=== PATIENT | male | born 1965 ===

== ENCOUNTER 2019-11-30 09:25 | Inpatient (IN) | payer OTHER ==
[~2019-11-30] VITALS: Ht 188 cm; Wt 124.9 kg
[2019-11-30] MEDS ORDERED: diphenhydrAMINE 25 MG TAB (BENADRYL) PO PRN (10:15)
[2019-11-30] MEDS ORDERED: CALCIUM CARBONATE 500 MG (TUMS) TAB.CHEW PO PRN (10:15)
[2019-11-30] MEDS ORDERED: guaiFENesin/CODEINE (ROBITUSSIN AC) 10ML UDC PO PRN (10:15)
[2019-11-30] MEDS ORDERED: ONDANSETRON 4 MG (ZOFRAN) ORAL DISSOLVE TAB PO PRN (10:15)
[2019-11-30] MEDS ORDERED: LOPERAMIDE 2 MG (IMODIUM) TABLET PO PRN (10:15)
[2019-11-30] MEDS ORDERED: ALPRAZolam 0.25 MG (XANAX) TAB PO PRN (10:15)
[2019-11-30] MEDS ORDERED: MELATONIN 3 MG TABLET PO PRN (10:15)
[2019-11-30] MEDS ORDERED: BISACODYL 10 MG SUPP (DULCOLAX) PR PRN (10:15)
[2019-11-30] MEDS ORDERED: FLEET ENEMA ADULT 1 EA BTL PR PRN (10:15)
[2019-11-30] MEDS ORDERED: ACETAMINOPHEN 500 MG TAB (TYLENOL) PO PRN ×2 (10:15→15:45)
[2019-11-30] MEDS ORDERED: LACTULOSE SYRUP 10GM/15ML (ENULOSE) 30ML UDC PO PRN (10:15)
[2019-11-30] MEDS ORDERED: DOCUSATE SODIUM 100 MG (COLACE) CAP PO PRN (10:15)
[2019-11-30] MEDS ORDERED: ASPI-999 PO (12:10)
[2019-11-30] MEDS ORDERED: DILT360C36 PO (12:12)
[2019-11-30] MEDS ORDERED: METO50TA7 PO (12:12)
[2019-11-30] MEDS ORDERED: ACET-2267 PO (12:12)
--- NOTE | 2019-11-30 12:14 | NUR ---
THE MED REC HAS BEEN ENTERED USING THE DISCHARGE ORDERS FROM [facility]- AFTER MEDICATION ARE CONTINUED I WILL SPEAK WITH THE PT AND MAKE CHANGES TO THE NOTES/MED REC NEEDED Addendum: 12/03/19 at 1531 by ADI DE LA CRUZ CPhT I SPOKE WITH THE PT AND WENT THRU THE EXT MED HISTORY TO COMPLETE THE MED REC MEDICATIONS THAT HAVE BEEN REMOVED DUE TO PT NOT TAKING PRIOR TO [facility]: ASPIRIN 81MG DILTIAZEM CD 360MG METOPROLOL SUCC 50MG- TAKES 1 & TABS DAILY MEDS THAT WERE ADDED TO THE MED REC THAT PT WAS TAKING BUT HAVE BEEN DISCONTINUED: CYCLOBENZAPRINE 10MG Addendum: 12/03/19 at 1531 by ADI DE LA CRUZ CPhT PT SAYS HE DOES TAKE TYLENOL AT HOME
--- NOTE | 2019-11-30 13:30 | NUR ---
Pt admitted to room 232-1, with an admitting diagnosis of M/S flare up, on 11/30/19 from [facility] via w/c, accompanied by staff. SOLANGE HARRELL introduced to surroundings, call light, bed controls, phone, TV, temperature control, lights, meal times, smoking policy, visitor policy, side rail policy, bathrooms and showers. Patient Rights given to patient in the handbook. SOLANGE HARRELL verbalizes understanding that [facility] is not responsible for the loss or damage to any personal effects or valuables that are kept in the patients posession during their hospitalization. The following Patient Care Plans were discussed with the pt: Impaired Mobility, Self Care Deficit, Potential for falls/injury, Discharge Planning. SOLANGE HARRELL verbalizes understanding of Interdisciplinary Patient Education. Patient and/or family were informed about the Rapid Response Team and its purpose. Patient received Patient Rights Booklet, which includes Privacy Act Statement and Data Collection Information Summary.
[2019-11-30 13:45] VITALS: BP 142/80
[2019-11-30] MEDS ORDERED: ACETAMINOPHEN 325 MG TABLET PO PRN (15:30)
--- NOTE | 2019-11-30 15:40 | Occupational Therapy Eval ---
OT Evaluation-General/PLF Medical Diagnosis Admission Date Nov 30, 2019 at 13:21 Medical Diagnosis: MS, debility Onset Date: Nov 30, 2019 Therapy Diagnosis Therapy Diagnosis: Decreased ADL status Precautions Precautions/Isolations: Standard Precautions Weight Bear Status Weight Bearing Restriction: Weight Bearing/Tolerated Referral Physician: Drake Referral Reason: Activity Tolerance, Self Care, Evaluation/Treatment, Strengthening/ROM Medical History Pertinent Medical History: HTN Additional Medical History chronic edema (BLE), L shoulder surgery (2002), MS, HTN, prostate Ca Current History Pt found on floor after 3 days by son. Pt fell/ unable to get up or call for help. Pt found to have a fib, UTI upon admission. Pt admits to ARU with c/o MS flare up and L knee pain. Reviewed History: Yes Social History Home: Multilevel Current Living Status: Other Family (sister) Entry Into Home: Level Entry Steps Into Home: 0 ADL-Prior Level of Function SCALE: Activities may be completed with or without assistive devices. 6-Mayozyxyzm-gwwijss completes the activity by him/herself with no assistance from a helper. 5-Set-up or Clean-up Assistance-helper sets up or cleans up; patient completes activity. [place] assists only prior to or following the activity. 4-Supervision or Touching Assistance-helper provides verbal cues and/or touching/steadying and/or contact guard assistance as patient completes activity. Assistance may be provided throughout the activity or intermittently. 3-Partial/Moderate Assistance-helper does LESS THAN HALF the effort. [place] lifts, holds or supports trunk or limbs, but provides less than half the effort. 2-Substantial/Maximal Assistance-helper does MORE THAN HALF the effort. [place] lifts or holds trunk or limbs and provides more than half the effort. 9-Akgmbbiht-clhdac does ALL the effort. Patient does none of the effort to complete the activity. Or, the assistance of 2 or more helpers is required for the patient to complete the activity. If activity was not attempted, code reason: 7-Patient Refused. 9-Not Applicable-not attempted and the patient did not perform the activity before the current illness, exacerbation or injury. 10-Not Attempted due to Environmental Limitations-(lack of equipment, weather restraints, etc.). 88-Not Attempted due to Medical Conditions or Safety Concerns. ADL PLOF Comments Pt states he is IND without use of AE for ADL tasks, use of 4WW for fx amb/ showering tasks. Self Care: Independent Functional Cognition: Independent DME/Equipment: Grab Bars, Shower DME/Equipment Comments walker, gb, walk in shower Occupation: disabled Drive Self: Yes OT Current Status Subjective Pt seen in recliner. Alert/ oriented x3. Pt agrees to OT eval/ treat. Pt states 7/10 pain in L knee in sit and in stance. OT individual eval: [id number] (15) PT eval: [id number] OT/ PT co-treat: [id number] (75) OT/ PT co treat rendered at this time: OT worked on ADL tasks, UE movement, fine motor/ dirt bike mechanic strength and PT addresses LE movement, fx transfers, and w/c mob. Mental Status/Objective Patient Orientation: Person, Place, Situation Current Glasses/Contacts: Yes Hearing Aids: No Dentures/Partials: No Hand Dominance: Right Upper Extremity ROM WFL BUE Upper Extremity Coordination WFL BUE Upper Extremity Sensation WFL BUE Upper Extremity Strength WFL BUE (4+/5) Edema: slight pitting [place] ADL-Treatment Eating (QC): 6 (IND; pt able to drink water ) Oral Hygiene (QC): 6 (IND per clinical reasoning) Shower/Bathe Self (QC): 7 (denies at this time. ) Upper Body Dressing (QC): 5 (s/u) Lower Body Dressing (QC): 1 (TD- max A for threading and sit to stand for stance for pulling over hips. ) On/Off Footwear (QC): 1 (TD per clinical judgment. ) Toileting Hygiene (QC): 1 (TD, use of sit to stand to [facility] Other Treatments Pt educated on OT role. 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 Pt lives in the basement of sister's home, though no stairs to get in/ out. Pt unclear on layout, but has ~3 stairs to climb to main/ kitchen level. Pt has walk in shower, gb to be installed (renovating his area). Pt states he is unsure if sister works during the day as she is "private person" though he knows she is gone during the day and does not assist with ADLs. Sister assists with grocery shopping/ IADLs. Pt states he ambulated with PT at [facility] and may have overworked his L knee- now states 7/10 pain (continuous pain). Pt states R UE/ LE affected by MS and pt "flops" R leg around with UEs. Pt's R/LUE MMT similar bilaterally. Pt tracks in all planes- states utilizes glasses though these are at home. Based on clinical judgment, pt unable to doff/ don socks. Pt attempts to thread pants to LEs, requires assist with 1 of 2 legs. Pt attempt to sit to stand with Ax2- unable to stand. Sit to stand lift utilized, pants donned with TD due to sit to stand lift needed for pant hike. Pt brought to w/c level, pt able to propel with cues for environment to problem solve, pt runs into items with hands. Pt stands at parallel bars with Ax2, completes stance for ~10 sec. Sits with limited control, clonus noted in R LE. Completion of UE dirt bike mechanic/ reaching exercise crossing midline. Pt demonstrates decreased hand eye coordination and depth perception during clothes pin task. Pt returns to room, sit to stand utilized for commode use, TD for cleansing/ toileting. Pt brought back to bed, all needs met, call light in reach. Education OT Patient Education: Correct positioning, Exercise program, Home exercise program, Modified ADL techniques, Progress toward Goal/Update tx plan, Purpose of tx/functional activities, Safety issues, Transfer techniques, W/C management Teaching Recipient: Patient Teaching Methods: Demonstration, Discussion Response to Teaching: Verbalize Understanding, Return Demonstration, Reinforcement Needed OT Short Term Goals Short Term Goals Toileting hygiene: 2 Lower body dressin OT General Operations Manager Goals General Operations Manager Goals Time Frame: Dec 14, 2019 Eating (QC): 6 Oral Hygiene (QC): 6 Toileting Hygiene (QC): 6 Shower/Bathe Self (QC): 6 Upper Body Dressing (QC): 6 Lower Body Dressing (QC): 6 On/Off Footwear (QC): 6 Additional Goals: 1-Demonstrate ADL Tasks, 2-Verbalize Understanding, 3- ImproveStrength/[place] 1=Demonstrate adherence to instructed precautions during ADL tasks. 2=Patient will verbalize/demonstrate understanding of assistive devices/modifications for ADL. 3=Patient will improve strength/tolerance for activity to enable patient to perform ADL's. OT Education/Plan Problem List/Assessment Assessment: Decreased Activ Tolerance, Decreased UE Strength, Dependent Transfers, Edema, Impaired Bed Mobility, Impaired Cognition, Impaired Funct Balance, Impaired I ADL's, Impaired Self-Care Skills, Visual-Perceptual Deficit Discharge Recommendations Plan/Recommendations: Continue POC Therapy Discharge Recommendati: Home & Family, Post Acute OT Treatment Plan/Plan of Care Treatment,Training & Education: Yes Patient would benefit from OT for education, treatment and training to promote independence in ADL's, mobility, safety and/or upper extremity function for ADL's. Plan of Care: ADL Retraining, Caregiver Training, Cognitive Retraining, Concurr ent Therapy, Functional Mobility, Group Exercise/Act as Ind, UE Funct Exercise/Act, W/C Management Training Treatment Duration: Dec 14, 2019 Frequency: At least 5 of 7 days/Wk (IRF) Estimated Hrs Per Day: 1.5 hours per day Rehab Potential: Fair Time/GCodes Start Time: 14:15 Stop Time: 16:00 Total Time Billed (hr/min): 90 Billed Treatment Time OT individual eval: [id number] (15) PT eval: [id number] OT/ PT co-treat: [id number] (75) OT/ PT co treat rendered at this time: OT worked on ADL tasks, UE movement, fine motor/ dirt bike mechanic strength and PT addresses LE movement, fx transfers, and w/c mob. 1, EVM (15) 1, ADL 2 (30), EX 3 (45)= 75 Total: 90 MAYKEL LUCAS OTR Nov 30, 2019 15:40
--- NOTE | 2019-11-30 15:59 | Physical Therapy Evaluation ---
PT Evaluation-General Medical Diagnosis Admission Date Nov 30, 2019 at 13:21 Medical Diagnosis: MS, debility Onset Date: Nov 30, 2019 Therapy Diagnosis Therapy Diagnosis: impaired mobility, strength, endurance Referral Physician: Melissa Juan DO Reason for Referral: Evaluation/Treatment Medical History Pertinent Medical History: HTN Additional Medical History chronic edema (BLE), L shoulder surgery (2002), MS, HTN, prostate Ca Reviewed History: Yes Social History Current Living Status: sister Entry Into Home: Level Entry PT Steps Inside Home: 2 Prior Prior Level of Function SCALE: Activities may be completed with or without assistive devices. 0-Onjnknrlgs-mvkpcix completes the activity by him/herself with no assistance from a helper. 5-Set-up or Clean-up Assistance-helper sets up or cleans up; patient completes activity. [place] assists only prior to or following the activity. 4-Supervision or Touching Assistance-helper provides verbal cues and/or touching/steadying and/or contact guard assistance as patient completes activity. Assistance may be provided throughout the activity or intermittently. 3-Partial/Moderate Assistance-helper does LESS THAN HALF the effort. [place] lifts, holds or supports trunk or limbs, but provides less than half the effort. 2-Substantial/Maximal Assistance-helper does MORE THAN HALF the effort. [place] lifts or holds trunk or limbs and provides more than half the effort. 7-Eadkthjto-qoqruf does ALL the effort. Patient does none of the effort to complete the activity. Or, the assistance of 2 or more helpers is required for the patient to complete the activity. If activity was not attempted, code reason: 7-Patient Refused. 9-Not Applicable-not attempted and the patient did not perform the activity before the current illness, exacerbation or injury. 10-Not Attempted due to Environmental Limitations-(lack of equipment, weather restraints, etc.). 88-Not Attempted due to Medical Conditions or Safety Concerns. Bed Mobility: 6 Transfers (B,C,W/C): 6 Gait: 6 Indoor Mobility (Ambulation): Independent Patient was ambulating independently with a rolling walker but only for short distances PT Evaluation-Current Subjective Patient in recliner pre tx, OT already started evaluation, has 7/10 pain in left knee, will be co-treating with OT due to poor patient mobility, strength, endurance, knee pain, poor standing balance, the need to coordinate UE and LE during activity. Pt/Family Goals to be independent at home Objective Patient Orientation: Person, Place, Situation ROM/Strength ROM Lower Extremities limited due to swelling and pain Strength Lower Extremities LLE (hip flexion 2/5, knee flexion 2/5, knee extension 2/5, dorsiflexin 2/5), RLE (hip flexion 1/5, knee flexion 1/5, knee extension 1/5, dorsiflexin 0/5) Sensory Hearing: Functional Sensation Right Lower Extremit: Intact Sensation Left Lower Extremity: Intact Transfers Roll Left to Right (QC): 3 Sit to Lying (QC): 3 Lying to Sitting/Side of Bed(Q: 3 Sit to Stand (QC): 1 Chair/Crr-kr-Wfqvk Xfer(QC): 1 Toilet Transfer (QC): 1 Car Transfer (QC): 1 Patient performs bed mobility with mod assist, supine <-> sit mod assist, dependent for sit to stand and transfers, dependent for car transfer. Patient uses a sit to stand machine for transfers. During tx patient was toileted on commode using a sit to stand machine, he was dependent for brief, cleaning, and transfer. Patient stood in the parallel bars with max assist of 2 for 2 times for about 30 seconds each time. Also used the sit to stand machine to finish dressing. Gait Does the Patient Walk?: No and Walking Goal NOT indicated Walk 10 feet (QC): 88 Walk 50 ft with 2 Turns(QC): 88 Walk 150 ft (QC): 88 Walking 10ft/uneven surface-QC: 88 Wheelchair Training Does the Pt Use a Wheelchair?: Yes Distance: 150'x2 Wheel 50 ft with 2 turns (QC): 3 Wheel 150 ft (QC): 3 Type of Wheelchair: Manual Stairs 1 Step (curb) (QC): 88 4 Steps (QC): 88 12 Steps (QC): 88 Balance Sitting Static: Normal Sitting Dynamic: Normal Standing Static: Poor Standing Dynamic: Poor Picking up an Object (QC): 88 Assessment/Needs Patient has impaired mobility, strength, endurance. He has a lot of left knee pain with ROM and bearing weight, he uses the sit to stand machine for standing and transfers. Rehab Potential: Guarded PT Short Term Goals Short Term Goals Time Frame: Dec 07, 2019 Roll Left & Right: 4 Sit to lyin Lying to sitting on side of be: 3 Sit to stand: 2 Chair/aao-hb-oidvd transfer: 2 PT Sales Service Supervisor Goals Alf Goals PT Sales Service Supervisor Goals Time Frame: Dec 21, 2019 Roll Left & Right (QC): 6 Sit to Lying (QC): 4 Lying-Sitting on Side/Bed(QC): 4 Sit to Stand (QC): 3 Chair/Ebj-pm-Gwvdt Xfer(QC): 3 Toilet Transfer (QC): 3 Car Transfer (QC): 3 Does the Patient Walk: No and Walking Goal NOT indicated Walk 10 feet (QC): 88 Walk 50ft with 2 Turns (QC): 88 Walk 150 ft (QC): 88 Walking 10ft on Uneven Surface: 88 1 Step (curb) (QC): 88 4 Steps (QC): 88 12 Steps (QC): 88 Picking up an Object (QC): 88 Wheel 50 feet with 2 turns (QC: 6 Wheel 150 feet: 6 PT Plan Problem List Problem List: Activity Tolerance, Functional Strength, Safety, Balance, Gait, Transfer, Bed Mobility, ROM Treatment/Plan Treatment Plan: Continue Plan of Care Treatment Plan: Bed Mobility, Education, Functional Activity [place], Functional Strength, Group Therapy, Gait, Safety, Therapeutic Exercise, Transfers Treatment Duration: Dec 21, 2019 Frequency: At least 5 of 7 days/Wk (IRF) Estimated Hrs Per Day: 1.5 hours per day Patient and/or Family Agrees t: Yes Safety Risks/Education Patient Education: Transfer Techniques, Correct Positioning, W/C Management, Safety Issues Teaching Recipient: Patient Teaching Methods: Demonstration, Discussion Response to Teaching: Reinforcement Needed Discharge Recommendations Plan Patient will perform bed mobility and transfer training, balance and endurance training, functional strengthening, gait training, and education, to improve functional mobility and independence at home. Therapy Discharge Recommendati: Scheduled Assistance, Other, See Comments ([place]), Home & Family Time/GCodes Time In: 1430 Time Out: 1600 Total Billed Treatment Time: 90 Total Billed Treatment 1 visit EVM 15' FA 75' PT eval from 0104-1299, co-treat from [id number]. PT performed bed mobility, transfers, standing, assist with dressing and toileting, OT worked on dressing, cleaning, toileting, UE activity, assist with transfers. JOVON PORTILLO PT Nov 30, 2019 15:59
[2019-11-30 17:00] VITALS: BP 131/95
--- NOTE | 2019-11-30 20:26 | PM&R Post Admission Assessment ---
PM&R HP Date of Visit: Nov 30, 2019 Time of Visit: 17:00 History of Present Illness CC: Multiple sclerosis flare HPI: This is a 54yoWM patient who presented to IRF following a hospital course at [facility]. Patient found down at home for full 3 days found to have UTI and new onset AF w/RVR. See below details. Dx with MS in 2018. 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 Dr Camacho is his PCP. Left knee pain is limiting his therapy so will consult Ortho. VEENA lives in basement of sister's house and has stairs. (DC note from [facility] Hospitalist: UTI (urinary tract infection) 11/30/2019 Hyponatremia 11/30/2019 Leukocytosis (leucocytosis) 11/27/2019 CAP (community acquired pneumonia) 11/30/2019 Remington Dunlap a 54 y.o.malewith a history of essential hypertension, multiple sclerosis and prostate cancer. Presented to the [facility] for with complaints of generalized weakness and a fall and was unable to get up. Son found him on the floor 3 days later. He also reported poor appetite and has not been with his medications for that reason. In addition, he has not been taking his MS medication for several months. Reported right knee pain and right-sided flank pain. He was noted to be in A. fib with RVR. Heart rates in the 130s. Received Cardizem bolus 20 mg x 1 and started on Cardizem drip. Transferred to stepdown unit. On admission, lab work showed CK 285. [id number] - 18s.Procalcitonin 0.39. WBC 16.9. TSH 1.94. Urine Legionella and Streptococcus negative. UDS remarkable for tricyclics and opiates. UAwith pyuria and bacteriuria but negative leukocyte esterase or nitrites. Chest x-ray remarkable for mild bibasilar atelectasis. No infiltrates. CT head negative for any acute intracranial hemorrhage, mass-effect or midline shift. Periventricular white matter disease consistent with history of MS. MRI brain with and without contrast showedmultiple bilateral periventricular and subcortical white matter T2 FLAIR and T2 signal intensity abnormalities without enhancementconsistent with demyelinating process/MS.Diffuse cerebral and cerebellar and corpus callosal atrophy.No hemosiderin deposition.No plaques visualized in the upper cervical cord.No acute / subacute restricted diffusion of acute/subacute infarct MRI cervical spinenegative for MR evidence to suggest presence of a demyelinating plaque involving the visualized portions of the cervical spinal cord. Negative for fracture or subluxation. Negative for MR evidence to suggest presence of a demyelinating plaque involving the visualized portions of the cervical spinal cord Echocardiogram showed EF of 55 to 60%. Trace MR and TR. Indeterminate diastolic function. In the ICU, he was started on ciprofloxacin for pneumonia/uti. Neurology consulted for MS exacerbation. Cardiology for A. fib. This is a new onset A. fib. Not candidate for anticoagulation per cardiology. Recommended b araceli aspirin daily. Eventually weaned off Cardizem drip. Transition to oral Cardizem and metoprolol. [facility]red [facility] 11/24. Was evaluated by 11/26 - recommended inpatient rehab. He has completed antibiotics course. Leukocytosis resolved. No respiratory sx. No evidence of new spinal or brain lesions to suggest MS progressing. Will need to f/u with on neurology in 2weeks. Metoprolol and cardizem have been titrated. HR controlled. He is being discharged to inpatient rehab in stable conditions. Past Mmqesgd-Yypuga-Amgytw Hx Past Med/Social Hx: Reviewed Nursing Past Med/Soc Hx, Reviewed and Corrections made Patient Social History Marrital Status: single Employed/Student: unemployed Alcohol Use: Denies Use Recreational Drug Use: No Smoking Status: Never a Smoker Physical Abuse Screen: No Sexual Abuse: No Recent Foreign Travel: No Contact w/other who traveled: No Recent Infectious Disease Expo: No Past Medical History Cardiac: Atrial Fibrillation, Hypertension Neurological: Multiple Sclerosis Genitourinary: Bladder Infection Gastrointestinal: Chronic Constipation Musculoskeletal: Arthritis Cancer: Prostate Family History Alcoholism 19 FATHER Diabetes mellitus 19 MOTHER Hypertension 19 FATHER 19 MOTHER Myocardial infarction 19 MOTHER Prior Level of Function Bed Mobility: 6 Transfers: 6 Gait: 6 Indoor Mobility (Ambulation): Independent Self Care: Independent Functional Cognition: Independent Occupation: disabled Drive Self: Yes Current Level of Fuctioning Roll Left to Right: 3 Sit to Lyin Lying to Sitting/Side of Bed: 3 Sit to Stand: 1 Chair/Zce-lh-Wyqqj Xfer: 1 Car Transfer: 1 Does the Patient Walk: No and Walking Goal NOT indicated Walk 10 feet: 88 Walk 50 ft with 2 Turns: 88 Walk 150 ft: 88 Walking 10ft on uneven surface: 88 Does the Pt Use a Wheelchair: Yes Wheelchair Distance: 150'x2 Wheel 50 ft with 2 turns: 3 Wheel 150 ft: 3 Type of Wheelchair: Manual 1 Step (curb): 88 4 Steps: 88 12 Steps: 88 Picking up an Object: 88 Eatin (IND; pt able to drink water ) Oral Hygiene: 6 (IND per clinical reasoning) Shower/Bathe Self: 7 (denies at this time. ) Upper Body Dressin (s/u) Lower Body Dressin (TD- max A for threading and sit to stand for stance for pulling over hips. ) On/Off Footwear: 1 (TD per clinical judgment. ) Toileting Hygiene: 1 (TD, use of sit to stand to BS.) PM&R Allergy/Meds/Data Review Allergies Coded Allergies: Penicillins (Verified Allergy, Unknown, rash, 11/30/19) Home Medications Scheduled Aspirin (Aspirin), 81 MG PO DAILY, (Reported) Diltiazem HCl (Diltiazem 24Hr ER), 360 MG PO DAILY, (Reported) Metoprolol Succinate (Metoprolol Succinate), 75 MG PO DAILY, (Reported) Scheduled PRN Acetaminophen (Tylenol Extra Strength), 500 MG PO Q6H PRN for PAIN-MILD (1-4), (Reported) Current Medications Current Medications Reviewed Review of Systems Constitutional: see HPI, malaise, weakness EENTM: no symptoms reported Respiratory: no symptoms reported Cardiovascular: no symptoms reported Gastrointestinal: no symptoms reported Genitourinary: no symptoms reported Musculoskeletal: back pain, joint pain, joint swelling, muscle pain, muscle stiffness, muscle cramps Skin: no symptoms reported Psychiatric/Neurological: Anxiety All Other Systems Reviewed Negative Unless Noted: Yes Physical Exam Physical Exam Vital Signs Vital Signs - First Documented 11/30/19 13:45 Temp 36.8 Pulse 92 Resp 20 B/P (MAP) 142/80 (100) Pulse Ox 98 O2 Delivery Room Air Capillary Refill : Height, Weight, BMI Height: '" Weight: lbs. oz. kg; 37.40 BMI Method: General Appearance: No Apparent Distress, WD/WN, Chronically ill Eyes: Bilateral Eye Normal Inspection, Bilateral Eye PERRL HEENT: PERRL/EOMI, Normal ENT Inspection, Pharynx Normal Neck: Full Range of Motion, Normal Inspection, Non Tender, Supple, Carotid Bruit Respiratory: Chest Non Tender, Lungs Clear, Normal Breath Sounds, No Accessory Muscle Use, No Respiratory Distress Cardiovascular: Regular Rate, Rhythm, No Edema, No Gallop, No JVD, No Murmur, Normal Peripheral Pulses Gastrointestinal: Normal Bowel Sounds, No Organomegaly, No Pulsatile Mass, Non Tender, Soft Back: Normal Inspection, No CVA Tenderness, No Vertebral Tenderness Extremity: Normal Capillary Refill, Normal Inspection, Normal Range of Motion, Non Tender, No Calf Tenderness, No Pedal Edema Neurologic/Psychiatric: Alert, Oriented x3, No Motor/Sensory Deficits, Normal Mood/Affect, patient services manager II-XII Norm as Tested, Abnormal Gait, Motor Weakness (3/5 legs) Skin: Normal Color, Warm/Dry Lymphatic: No Adenopathy PM&R Medical Assessment & Plan REHAB/MEDICAL ASSESSMENT AND PLAN: REHAB IMPAIRMENT GROUP: MS flare ETIOLOGIC DIAGNOSIS: MS flare The comorbidities that impact the patients function and/or functional outcome by: left knee pain requiring ortho eval, chronic MS with debility, new onset AF, fall risk REHAB PLAN: The patient is being admitted to our comprehensive inpatient rehabilitation facility and can tolerate the intensity of service consisting of at least: 180 minutes of therapy a day, 5 out of 7 days a week Rehab treatment will consist of: PT OT will focus on regaining strength and mobility and increase independence with ADL's and work on stairs in order to return home in sister's basement. The patient/family has a good understanding of our discharge process and will benefit from an interdisciplinary inpatient rehabilitation program. The patient has potential to make improvement and is in need of at least two of the following multidisciplinary therapies including but not limited to physical, occupational, speech, and prosthetics and orthotics. Additionally the patient will need services from respiratory, nutritional services, wound care, psycholog y, etc. (Customize this to each patient). Given the patients complex condition and risk of further medical complications, rehabilitation services cannot be safely or effectively provided at a lower level of care such as a fdc facility. BARRIERS TO DISCHARGE: Poor social situation ESTIMATED LOS: 7 days DISPOSITION: Home RELEVANT CHANGES SINCE PREADMISSION SCREENING: I have compared the patients medical and functional status at the time of the preadmission screening and there are: no changes PROGNOSIS: Good REHABILITATION GOALS: 1. PT OT will focus on regaining strength and mobility and increase independence with ADL's and work on stairs in order to return home in sister's basement. All the above goals were reviewed with the patient and he/she is in agreement. By signing this document, I acknowledge that I have personally performed a full physical examination on this patient within 24 hours of admission to this inpatient rehabilitation facility and have determined the patient to be able to tolerate the above course of treatment at an intensive level for a reasonable period of time. I will be completing a detailed individualized Plan of Care for this patient by day #4 of the patients stay based upon the Preadmission Screen, the Post-Admission Evaluation, and the therapy evaluations. Admission Dx/Comorbidities: (1) Left knee pain ICD Codes: M25.562 - Pain in left knee (2) Atrial fibrillation ICD Codes: I48.91 - Unspecified atrial fibrillation (3) History of UTI ICD Codes: Z87.440 - Personal history of urinary (tract) infections (4) Fall ICD Codes: W19.XXXA - Unspecified fall, initial encounter (5) Multiple sclerosis ICD Codes: G35 - Multiple sclerosis Assessment/Plan Assessment and Plan Assess & Plan/Chief Complaint Assessment: MS flare Fall s/p UTI New onset AF w/RVR Left knee pain Thrombocytosis Plan: Ortho consult IRF protocol Home meds BM regimen GEORGI WATT DO Nov 30, 2019 20:26
[2019-11-30] MEDS: polyethylene glycoL POWDER 17 GM (MIRALAX) PACK PO SCH (21:06)
[2019-11-30] MEDS: DOCUSATE SODIUM 100 MG (COLACE) CAP PO SCH (21:06)
[2019-11-30] MEDS: SENNA W/DOCUSATE (SENOKOT S) TABLET PO SCH (21:07)
[2019-11-30] MEDS: ENOXAPARIN 40 MG/0.4 ML (LOVENOX) SYR SC SCH (21:10)
[2019-12-01 04:41] VITALS: BP 125/76
[2019-12-01 05:08] LABS: BASOPHILS % (AUTO) 0 % (0-10); EOSINOPHILS # (AUTO) 0.3 10^3/uL (0.0-0.3); EOSINOPHILS % (AUTO) 3 % (0-10); HEMATOCRIT 39 % (40-54); LYMPHOCYTES # (AUTO) 2.4 X 10^3 (1.0-4.0); LYMPHOCYTES % (AUTO) 24 % (12-44); MEAN CORPUSCULAR HEMOGLOBIN 30 PG (25-34); MEAN CORPUSCULAR HGB CONC 33 G/DL (32-36); MEAN CORPUSCULAR VOLUME 91 FL (80-99); MEAN PLATELET VOLUME 9.9 FL (7.4-10.4); MONOCYTES # (AUTO) 1.2 X 10^3 (0.0-1.0); MONOCYTES % (AUTO) 12 % (0-12); NEUTROPHILS # (AUTO) 6.1 X 10^3 (1.8-7.8); NEUTROPHILS % (AUTO) 62 % (42-75); PLATELET COUNT 616 10^3/uL (130-400); RED CELL DISTRIBUTION WIDTH 12.9 % (10.0-14.5); WHITE BLOOD COUNT 9.9 10^3/uL (4.3-11.0)
[2019-12-01 05:31] LABS: ALANINE AMINOTRANSFERASE 57 U/L (0-55); ALBUMIN 3.2 GM/DL (3.2-4.5); ALKALINE PHOSPHATASE 94 U/L (40-136); BILIRUBIN,TOTAL 0.5 MG/DL (0.1-1.0); BUN/CREATININE RATIO 18; CALCIUM 8.6 MG/DL (8.5-10.1); CARBON DIOXIDE 24 MMOL/L (21-32); CHLORIDE 105 MMOL/L (98-107); CREATININE SERUM 0.83 MG/DL (0.60-1.30); GFR ESTIMATED > 60; GLUCOSE 96 MG/DL (70-105); POTASSIUM 4.3 MMOL/L (3.6-5.0); SODIUM 137 MMOL/L (135-145); TOTAL PROTEIN 7.7 GM/DL (6.4-8.2)
[2019-12-01 06:15] LABS: EOSINOPHILS % (MANUAL) 2 %; LYMPHOCYTES % (MANUAL) 20 %; MONOCYTES % (MANUAL) 10 %; NEUTROPHILS % (MANUAL) 63 %; REACTIVE LYMPHOCYTES 5 %
[2019-12-01] MEDS: DOCUSATE SODIUM 100 MG (COLACE) CAP PO SCH ×2 (08:04→20:07)
[2019-12-01] MEDS: polyethylene glycoL POWDER 17 GM (MIRALAX) PACK PO SCH ×2 (08:04→20:07)
[2019-12-01] MEDS: SENNA W/DOCUSATE (SENOKOT S) TABLET PO SCH ×2 (08:05→20:07)
[2019-12-01] MEDS: meTOproloL SUCCINATE 50 MG (TOPROL XL) TAB PO SCH (08:30)
[2019-12-01] MEDS: ASPIRIN 81 MG CHEW (CHILDREN'S ASA) PO SCH (08:30)
[2019-12-01] MEDS: HYDROcodone/APAP 10 MG/325 MG (LORTAB) TAB PO PRN (08:47)
[2019-12-01] MEDS ORDERED: NON-FORMULARY MEDICATION 1 EA EA (Diltiazem HCl (Diltiazem 24Hr ER) 360 MG) PO SCH (09:00)
--- NOTE | 2019-12-01 11:05 | Diagnostic Imaging Report ---
INDICATION: Left knee pain, fall. Time of exam 10:41 AM 3 views left knee were obtained. Medial and lateral compartments are well maintained. There is some spurring along the lateral femoral condyle. There is significant patellofemoral degenerative change. No fracture is identified. There is no dislocation. There is a moderate-sized knee joint effusion. IMPRESSION: Degenerative changes and moderate effusion. No acute bony abnormality is detected. Dictated by: Dictated on workstation # [id number]
--- NOTE | 2019-12-01 11:29 | Progress Note ---
KALYANI THACKER MED STUDENT 12/01/19 1129: Progress Note 54 yo M presents post-hospital stay for rehabilitation. pt history includes multiple sclerosis. Neurological exam CN I- not assessed CN II- pupils, equal, round and reactive to light CN III- intact CN IV- intact CN V- sensation and motor intact CN - intact CN VII- intact CN VIII- intact CN IX- intact CN X- intact CN XI- intact, equal bilateral shoulder raise CN XII- intact Skin sensations intact bilaterally deep tendon reflexes were not assessed. Muscle strength L arm-+5 R arm +4 L forearm +5 R forearm +4 L pronation and supination +5 R pronation and supination +4 L leg +2 R leg +1 L lower leg +2 R lower leg +1 Assessment multiple sclerosis flare muscular atrophy from previous hospital stay Plan continue PT/OT and speech therapy x-ray of left knee MELISSA JUAN DO 12/01/19 2137: Supervisory-Addendum Brief Verification & Attestation Participated in pt care: history, MDM, physical Personally performed: exam, history, MDM, supervision of care Care discussed with: Medical Student Procedures: n/a Results interpretation: Verified all documentation Verification and Attestation of Medical Student E/M Service A medical student performed and documented this service in my presence. I reviewed and verified all information documented by the medical student and made modifications to such information, when appropriate. I personally performed the physical exam and medical decision making. Melissa Juan, Dec 01, 2019,21:37 KALYANI THACKER MED STUDENT Dec 01, 2019 11:29 MELISSA JUAN DO Dec 01, 2019 21:37
--- NOTE | 2019-12-01 11:35 | ST Cognitive Linguistic Eval ---
Speech Evaluation-General Medical Diagnosis MS, debility Onset Date: Nov 30, 2019 Therapy Diagnosis Therapy Diagnosis: Cognitive-communication Referral Referring Physician: Dr. Juan Medical History Pertinent Medical History: HTN Reviewed History: Yes Social History Current Living Status: sister Speech PLF-Current Status Prior Level of Function Patient lived in his sister's home where he received some assistance as needed. Subjective Patient was pleasant and cooperative with the cognitive assessment. Language Eval: Auditory Comprehends Simple Yes/No Ques: Functional Indent/Objects Multiple Palmer: Functional Ident/Pics in Multiple Palmer: Functional Follows 1-Step Commands: Functional Follows Complex Directions: Mild Follows General Conversations: Mild Language Eval: Verbal Language Completes Spontaneous Greeting: Functional Produces Auto, Serial Info: Functional Imitates Simple Words/Phrases: Functional Word Finding: Mild Requests Basic Needs: Functional States Basic Personal Info: Functional Expresses Complex Ideas: Mild Objective Cognitive Domain Attention: WNL Memory: Mild Problem Solving: Mild Executive Functions: Mild Visuospatial Skills: Mild Composite Severity Rating: Mild Clock Drawing Severity Rating: WNL Objective Formal/Standardized Tests [facility] Status ([facility]) Results 25/30, within Mild Neurocognitive Disorder level of function Oral Motor/Speech Production Within Normal Limits Impression Patient is a pleasant 54 y/o male who was admitted to the ARU due to debility/fall. Patient was very talkative and required frequent redirection during the assessment. The patient was given the SLUMS at bedside with a score of 25/30 obtained. This score is within the MNCD range of function. Patient will receive skilled ST with focus on safety awareness and cognitive improvement so that he may return home safely. Speech Patient Assess Expression of Ideas/Wants: Exhibits (3) Understanding Verbal Content: Usually Understands (3) Brief Interview-Mental Status: Yes Repetition of Three Words: Three (3) Temporal Orientation: Year: Correct (3) Temporal Orientation: Month: Accurate within 5 days(2) Temporal Orientation: Day: Correct (1) Recall : Wear to say "Sock": Yes,after cueing (1) Recall : Color: Yes, after cueing (1) Recall : Bed: Yes,after cueing (1) Memory/Recall Ability: Current season, That he or she is in a hsp/hsp unit Speech Short Term Goals Short Term Goals Short Term Goals 1) The patient will complete memory tasks related to his daily needs at 90% or greater with minimal cues. 2) The patient will complete safety awareness tasks related to his daily needs at 90% or greater with minimal cues. 3) The patient will complete problem solving tasks related to his daily needs at 90% or greater with minimal cues. Speech Cheese Grader Goals Cheese Grader Goals Patient will improve cognitive-communication necessary for safety and daily living tasks with minimal assist. Speech-Plan Patient/Family Goals Patient/Family Goals: Patient plans on returning to his home upon rehab discharge. Treatment Plan Speech Therapy Treatment Plan: Continue Plan of Care Treatment Duration: Dec 10, 2019 Frequency: 4 times per week (Patient will receive skilled ST 4-5x per week) Estimated Hrs Per Day: .25 hour per day Rehab Potential: Guarded Barriers to Learning: Patient's recent decline in function, MNCD range of function Pt/Family Agrees to Plan: Yes Safety Risks/Education Teaching Recipient: Patient Teaching Methods: Demonstration, Discussion Response to Teaching: Verbalize Understanding, Return Demonstration Education Topics Provided: Safety within his room, communication of wants/needs Time Speech Therapy Time In: 09:00 Speech Therapy Time Out: 09:25 Total Billed Time: 25 Billed Treatment Time 1, ANNY LERNER BETH[place] ST Dec 01, 2019 11:35
--- NOTE | 2019-12-01 12:08 | Physical Therapy Daily Note ---
PT Daily Note-Current Subjective Pt. in bed upon arrival, co Rx with OT. Pt shares much of his medical history and more. Pt. c/o pain in left knee that he feels inhibits him greatly from better function. Pt did not rate knee pain Pain Location: Left Location Body Site: Knee Mental Status Patient Orientation: Person, Place, Time, Situation Transfers SCALE: Activities may be completed with or without assistive devices. 4-Scqqcwfnbw-xwlpigc completes the activity by him/herself with no assistance from a helper. 5-Set-up or Clean-up Assistance-helper sets up or cleans up; patient completes activity. Premium assists only prior to or following the activity. 4-Supervision or Touching Assistance-helper provides verbal cues and/or touching/steadying and/or contact guard assistance as patient completes activity. Assistance may be provided throughout the activity or intermittently. 3-Partial/Moderate Assistance-helper does LESS THAN HALF the effort. Premium lift s, holds or supports trunk or limbs, but provides less than half the effort. 2-Substantial/Maximal Assistance-helper does MORE THAN HALF the effort. Premium lifts or holds trunk or limbs and provides more than half the effort. 9-Rctttziqb-qvwmwm does ALL the effort. Patient does none of the effort to complete the activity. Or, the assistance of 2 or more helpers is required for the patient to complete the activity. If activity was not attempted, code reason: 7-Patient Refused. 9-Not Applicable-not attempted and the patient did not perform the activity before the current illness, exacerbation or injury. 10-Not Attempted due to Environmental Limitations-(lack of equipment, weather restraints, etc.). 88-Not Attempted due to Medical Conditions or Safety Concerns. Roll Left & Right (QC): 5 Sit to Lying (QC): 3 Lying to Sitting/Side of Bed(Q: 2 Exercises Supine Ex: Bridging, Ankle pumps (HC streches right AROM left), Quad Set, Rolling, Glut sets, Heel Slides (assisted), Scooting (up in bed mod I), Hip abd/add (assisted) Treatments co Rx with OT for coordination of U&L extremity functional activities and exercises, pt. rolls left and right using mostly trunk and UEs, PT directing and instructing LE an trunk use as OT guides and educates about efficient use of UEs for all attempted TRFs as well as for bathing and dressing. Sit to stand vulnerable to attempt even wit assist of 3 as pt. c/o pain L knee at 6/10 and weakness bilat LEs, bed level was raised to accommodate but pt. melting when slight attempt made to assist pt. to stance and this attempt was aborted for safety reasons. pt. was assisted assist of 2 to supine Assessment Current Status: Fair Progress pain in left knee as well as right LE and weakness greatly limit function PT Short Term Goals Short Term Goals Time Frame: Dec 07, 2019 Roll Left & Right: 4 Sit to lyin Lying to sitting on side of be: 3 Sit to stand: 2 Chair/pgj-yi-fivzf transfer: 2 PT Eyewear Manufacturing Tech Goals Half-Way Goals PT Half-Way Goals Time Frame: Dec 21, 2019 Roll Left & Right (QC): 6 Sit to Lying (QC): 4 Lying-Sitting on Side/Bed(QC): 4 Sit to Stand (QC): 3 Chair/Nhm-ha-Eyayb Xfer(QC): 3 Toilet Transfer (QC): 3 Car Transfer (QC): 3 Does the Patient Walk: No and Walking Goal NOT indicated Walk 10 feet (QC): 88 Walk 50ft with 2 Turns (QC): 88 Walk 150 ft (QC): 88 Walking 10ft on Uneven Surface: 88 1 Step (curb) (QC): 88 4 Steps (QC): 88 12 Steps (QC): 88 Picking up an Object (QC): 88 Wheel 50 feet with 2 turns (QC: 6 Wheel 150 feet: 6 PT Plan Treatment/Plan Treatment Plan: Continue Plan of Care Treatment Plan: Bed Mobility, Education, Functional Activity [place], Functional Strength, Group Therapy, Gait, Safety, Therapeutic Exercise, Transfers Treatment Duration: Dec 21, 2019 Frequency: At least 5 of 7 days/Wk (IRF) Estimated Hrs Per Day: 1.5 hours per day Patient and/or Family Agrees t: Yes Safety Risks/Education Patient Education: Transfer Techniques, Correct Positioning, Disease Process, Safety Issues Teaching Recipient: Patient, Primary Caregiver Teaching Methods: Discussion Response to Teaching: Verbalize Understanding, Return Demonstration, Reinforcement Needed Time/GCodes Time In: 1015 Time Out: 1100 Total Billed Treatment Time: 45 Total Billed Treatment 1,FA30m,EX15m,co Rx OT 45 m FOSTER INFANTE COMBINATION WELDER Dec 01, 2019 12:08
--- NOTE | 2019-12-01 12:42 | Consultation - Ortho ---
Consult - Ortho Subjective Date of Exam 12/01/19 Chief Complaint Pain and swelling left knee HPI/Events since last exam Mr. Gonzalez is a 54-year-old white male who is complaining of left knee pain and swelling for several days. He has a history of MS. He walks with a walker for about a year hand prior to that he was using a cane. He started having some difficulty getting up and around so his son recommended he go to [facility] worries evaluated and x-rayed and admitted. He stated he was in ICU and had a workup including MRIs. He was seen by a neurologist. He was discharged to rehabilitation here. While at [facility] was ambulating with a walker with therapy and couple days after he started therapy started having swelling and tightness and discomfort in his left knee. He had had a fall a couple weeks ago but didn't injure his left knee. He had an injury about [address] Valle. So he thought the swelling and pain was due to increased activity. Now with ambulation he has increased pain. He's had no swelling in his knee prior to his stay at [facility] when he started getting up and around. He states he uses a left knee more than the right because her right leg "kicks out on him". He is not on any anti-inflammatories at this point. He has taken ibuprofen in the past without any problems. He has had no injection to his left knee. He has had x-rays taken today. He denies any left hip pain Medical, Surgical History Reviewed and no additions or changes Social History Reviewed and no additions or changes Family History Reviewed and no additions or changes Review of Systems Reviewed and no additions or changes Allergies: Coded Allergies: Penicillins (Verified Allergy, Unknown, rash, 11/30/19) Home Meds Reported Medications Acetaminophen (Tylenol Extra Strength) 500 Mg Tablet, 500 MG PO Q6H PRN for PAIN-MILD (1-4), TAB 11/30/19 Metoprolol Succinate (Metoprolol Succinate) 50 Mg Tab.er.24h, 75 MG PO DAILY, TAB TAKES 1 & OF A 50MG TAB 11/30/19 Diltiazem HCl (Diltiazem 24Hr ER) 360 Mg Cap.er.24h, 360 MG PO DAILY, CAP 11/30/19 Aspirin (Aspirin) 81 Mg Tab.chew, 81 MG PO DAILY, TAB 11/30/19 Objective Exam Constitutional: [] HEENT: [] Neck: [] Cardiovascular: [] Respiratory: [] Gastrointestinal: [] Genitourinary: [] Skin: [] Back/Spine: [] Extremities: [] No pain with gentle range of motion left hip. He has moderate effusion left knee. No redness. He has no pain over the collateral ligaments. No instability on varus or valgus stresses 0 and 30. Gypsy's is negative. Unable to flex his knee beyond 40. He has patellofemoral pain with compression and loading but good tracking. No calf tenderness and negative Homans Neurologic: [] Psychiatric: [] Hematologic/lymphatic/immunologic: [] Vital Signs Vital Signs Date Time Temp Pulse Resp B/P (MAP) Pulse Ox O2 Delivery O2 Flow Rate FiO2 12/01/19 09:00 Room Air 12/01/19 04:41 36.5 85 20 125/76 (92) 95 Room Air 11/30/19 21:00 Room Air 11/30/19 18:54 Room Air 11/30/19 18:15 Room Air 11/30/19 17:00 37.9 99 16 131/95 (107) 97 Room Air 11/30/19 13:45 36.8 92 20 142/80 (100) 98 Room Air I & O 12/01/19 07:00 Intake Total 1140 ml Output Total 1200 ml Balance -60 ml Lab Results Laboratory Tests 12/01/19 04:29: White Blood Count 9.9, Red Blood Count 4.32L, Hemoglobin 13.0L, Hematocrit 39L, Mean Corpuscular Volume 91, Mean Corpuscular Hemoglobin 30, Mean Corpuscular Hemoglobin Concent 33, Red Cell Distribution Width 12.9, Platelet Count 616H, Mean Platelet Volume 9.9, Neutrophils (%) (Auto) 62, Lymphocytes (%) (Auto) 24, Monocytes (%) (Auto) 12, Eosinophils (%) (Auto) 3, Basophils (%) (Auto) 0, Neutrophils # (Auto) 6.1, Lymphocytes # (Auto) 2.4, Monocytes # (Auto) 1.2H, Eosinophils # (Auto) 0.3, Basophils # (Auto) 0.0, Neutrophils % (Manual) 63, Lymphocytes % (Manual) 20, Monocytes % (Manual) 10, Eosinophils % (Manual) 2, Reactive Lymphocytes 5, Sodium Level 137, Potassium Level 4.3, Chloride Level 105, Carbon Dioxide Level 24, Anion Gap 8, Blood Urea Nitrogen 15, Creatinine 0.83, Estimat Glomerular Filtration Rate > 60, BUN/Creatinine Ratio 18, Glucose Level 96, Calcium Level 8.6, Corrected Calcium 9.2, Total Bilirubin 0.5, Aspartate Amino Transf (AST/SGOT) 34, Alanine Aminotransferase (ALT/SGPT) 57H, Alkaline Phosphatase 94, Total Protein 7.7, Albumin 3.2 Imaging X-rays of left knee were obtained which shows significant degenerative changes at the patellofemoral joint on the lateral view. No patella femoral views were obtained. There is no medial or lateral joint space narrowing but these are nonweightbearing films. He does have spurring off the tibia both medial and lateral in the femur laterally. No evidence fracture. Moderate effusion is noted. Assessment and Plan Assessment Aggravation of pre-existing degenerative arthritis left knee Problem List Unchanged Plan I discussed the above with the patient. Since he's had no injury it would be unlikely that he has a ligamentous or meniscal injury. I think he's had an aggravation of his pre-existing osteoarthritis. This was probably brought on by his therapy after bed rest. I talked to him about use of anti-inflammatories and also injection of the knee. He states he would prefer starting on an anti- inflammatory. He is on Lovenox but not on Coumadin. I sent attacks to Dr. Juan and she was fine with him starting on Naprosyn 500 mg twice a day with food. He understands it may take 2-3 weeks to see the maximum benefit and it could take same on the time with an injection. If she continues with problems and wants to proceed with injection we can go ahead with that as well. We'll have him continue to be up as tolerated with therapy. Final Diagonsis Osteoarthritis left knee Level of the visit: Level 3 SEA GAR MD Dec 01, 2019 12:42
--- NOTE | 2019-12-01 12:59 | Occupational Ther Daily Note ---
OT Current Status-Daily Note Subjective Pt in bed when OT entered room. He reported pain in left knee when moving. He did not rate the pain but reported that he had medication. Pt agreeable to therapy. Mental Status/Objective Patient Orientation: Person, Place, Situation Attachments: SCD's ADL-Treatment Therapy Code Descriptions/Definitions Functional [place] Measure: 0=Not Assessed/NA 4=Minimal Assistance 1=Total Assistance 5=Supervision or Setup 2=Maximal Assistance 6=Modified [place] 3=Moderate Assistance 7=Complete IndependenceSCALE: Activities may be completed with or without assistive devices. 8-Movlzndrac-qgmjfmp completes the activity by him/herself with no assistance from a helper. 5-Set-up or Clean-up Assistance-helper sets up or cleans up; patient completes activity. [place] assists only prior to or following the activity. 4-Supervision or Touching Assistance-helper provides verbal cues and/or touching/steadying and/or contact guard assistance as patient completes activity. Assistance may be provided throughout the activity or intermittently. 3-Partial/Moderate Assistance-helper does LESS THAN HALF the effort. [place] lifts, holds or supports trunk or limbs, but provides less than half the effort. 2-Substantial/Maximal Assistance-helper does MORE THAN HALF the effort. [place] lifts or holds trunk or limbs and provides more than half the effort. 4-Wzubiexai-mqqrbq does ALL the effort. Patient does none of the effort to complete the activity. Or, the assistance of 2 or more helpers is required for the patient to complete the activity. If activity was not attempted, code reason: 7-Patient Refused. 9-Not Applicable-not attempted and the patient did not perform the activity before the current illness, exacerbation or injury. 10-Not Attempted due to Environmental Limitations-(lack of equipment, weather restraints, etc.). 88-Not Attempted due to Medical Conditions or Safety Concerns. Oral Hygiene (QC): 5 Shower/Bathe Self (QC): 3 (Mod) Upper Body Dressing (QC): 5 Lower Body Dressing (QC): 2 On/Off Footwear: 1 Toileting Hygiene (QC): 1 (Pt incontinent of bowel and bladder) Partial Co-treat with PT due to the need of 2 skilled therapists. PT focusing on LE strength, mobility, and transfers. OT facilitating ADL skills, UE strength, and functional mobility. Pt reported that he was waiting for Xray of L knee but agreed to sponge bath in bed. He was provided with warm washcloths and towels to wash and dry. Pt transferred supine-EOB with min A for legs. He bathed/dried self with mod A overall for lower legs and feet, as well as [place] area at supine level. When attempting to stand at EOB, pt. required assist x3 and was unable to reach full stance. Pt. incontinent of bowel and bladder and dependent for cleansing aug[place]ina area. He required extra time and multiple redirections throughout the session to attend to task. Pt independent with oral care after having the tooth brush, tooth paste, and water handed to him while seated in bed. Pt in bed with call light. All needs met. Education OT Patient Education: Correct positioning, Modified ADL techniques, Progress toward Goal/Update tx plan, Purpose of tx/functional activities, Reviewed precautions, Rehab process, Safety issues, Transfer techniques Teaching Recipient: Patient Teaching Methods: Demonstration, Discussion Response to Teaching: Verbalize Understanding, Return Demonstration OT Short Term Goals Short Term Goals Toileting hygiene: 2 Lower body dressin OT Fpc Goals Fpc Goals Time Frame: Dec 14, 2019 Eating (QC): 6 Oral Hygiene (QC): 6 Toileting Hygiene (QC): 6 Shower/Bathe Self (QC): 6 Upper Body Dressing (QC): 6 Lower Body Dressing (QC): 6 On/Off Footwear (QC): 6 Additional Goals: 1-Demonstrate ADL Tasks, 2-Verbalize Understanding, 3- ImproveStrength/[place] 1=Demonstrate adherence to instructed precautions during ADL tasks. 2=Patient will verbalize/demonstrate understanding of assistive devices/modifications for ADL. 3=Patient will improve strength/tolerance for activity to enable patient to perform ADL's. OT Education/Plan Problem List/Assessment Assessment: Decreased Activ Tolerance, Dependent Transfers, Impaired Cognition, Impaired Funct Balance, Impaired I ADL's, Impaired Self-Care Skills, Visual- Perceptual Deficit Discharge Recommendations Plan/Recommendations: Continue POC Therapy Discharge Recommendati: Post Acute OT Treatment Plan/Plan of Care Treatment,Training & Education: Yes Patient would benefit from OT for education, treatment and training to promote independence in ADL's, mobility, safety and/or upper extremity function for ADL's. Plan of Care: ADL Retraining, Caregiver Training, Cognitive Retraining, Concurrent Therapy, Functional Mobility, Group Exercise/Act as Ind, UE Funct Exercise/Act, W/C Management Training Treatment Duration: Dec 14, 2019 Frequency: At least 5 of 7 days/Wk (IRF) Estimated Hrs Per Day: 1.5 hours per day Rehab Potential: Fair Time/GCodes Start Time: 10:00 Stop Time: 11:15 Total Time Billed (hr/min): 75 Billed Treatment Time Co-treat with PT ([id number]) ADL x 45 minutes See above note for designated roles. Individual treatment ([id number]) ADL x 15 minutes and ([id number]) ADL x 15 minutes. Total individual treatment 30 minutes. Total treatment time 75 minutes 1, ADL 5 CHANCE SUGGS OT Dec 01, 2019 12:59
--- NOTE | 2019-12-01 13:21 | Physical Therapy Daily Note ---
PT Daily Note-Current Subjective Pt. in bed. Just finished lunch. Pt. spoke at length about what lead to this hospitalization and his family situation etc. Pt. currently living with his sister which he says was a little yudy b/c she wasnt expecting to move in this quickly. "Im in a basement apartment that is a walk out type basement" Pain Numeric Pain Scale: 7 Location: Left Location Body Site: Knee Pain Description: Ache Comment: pain exacerbated with attempts to move passively Mental Status Patient Orientation: Person, Place, Time, Situation Transfers SCALE: Activities may be completed with or without assistive devices. 8-Jstvfuqsiq-xhnqgiv completes the activity by him/herself with no assistance from a helper. 5-Set-up or Clean-up Assistance-helper sets up or cleans up; patient completes activity. [place] assists only prior to or following the activity. 4-Supervision or Touching Assistance-helper provides verbal cues and/or touching/steadying and/or contact guard assistance as patient completes activity. Assistance may be provided throughout the activity or intermittently. 3-Partial/Moderate Assistance-helper does LESS THAN HALF the effort. [place] lifts, holds or supports trunk or limbs, but provides less than half the effort. 2-Substantial/Maximal Assistance-helper does MORE THAN HALF the effort. [place] lifts or holds trunk or limbs and provides more than half the effort. 6-Oqsrjpwfv-oftgas does ALL the effort. Patient does none of the effort to complete the activity. Or, the assistance of 2 or more helpers is required for the patient to complete the activity. If activity was not attempted, code reason: 7-Patient Refused. 9-Not Applicable-not attempted and the patient did not perform the activity before the current illness, exacerbation or injury. 10-Not Attempted due to Environmental Limitations-(lack of equipment, weather restraints, etc.). 88-Not Attempted due to Medical Conditions or Safety Concerns. rolls left and right mod I using UEs and trunk Exercises Supine Ex: Ankle pumps (HC stretches RLE), Quad Set, Rolling, Glut sets, Heel Slides (assist bilat with increaed pain c/o), Scooting (up in bed indep), Hip abd/add (assisted) Assessment Current Status: Fair Progress awaiting left knee XR and plan PT Short Term Goals Short Term Goals Time Frame: Dec 07, 2019 Roll Left & Right: 4 Sit to lyin Lying to sitting on side of be: 3 Sit to stand: 2 Chair/jze-tu-tkdtd transfer: 2 PT Ammunition Assembly Ii Laborer Goals Ammunition Assembly Ii Laborer Goals PT Ammunition [employer] Ii Laborer Goals Time Frame: Dec 21, 2019 Roll Left & Right (QC): 6 Sit to Lying (QC): 4 Lying-Sitting on Side/Bed(QC): 4 Sit to Stand (QC): 3 Chair/Cdr-is-Mczup Xfer(QC): 3 Toilet Transfer (QC): 3 Car Transfer (QC): 3 Does the Patient Walk: No and Walking Goal NOT indicated Walk 10 feet (QC): 88 Walk 50ft with 2 Turns (QC): 88 Walk 150 ft (QC): 88 Walking 10ft on Uneven Surface: 88 1 Step (curb) (QC): 88 4 Steps (QC): 88 12 Steps (QC): 88 Picking up an Object (QC): 88 Wheel 50 feet with 2 turns (QC: 6 Wheel 150 feet: 6 PT Plan Treatment/Plan Treatment Plan: Continue Plan of Care Treatment Plan: Bed Mobility, Education, Functional Activity [place], Functional Strength, Group Therapy, Gait, Safety, Therapeutic Exercise, Transfers Treatment Duration: Dec 21, 2019 Frequency: At least 5 of 7 days/Wk (IRF) Estimated Hrs Per Day: 1.5 hours per day Patient and/or Family Agrees t: Yes Safety Risks/Education Patient Education: Correct Positioning, Disease Process Time/GCodes Time In: 1235 Time Out: 1315 Total Billed Treatment Time: 40 Total Billed Treatment 1,1,FA15m,EX25m FOSTER INFANTE COMM[employer] RELATIONS DIRECTOR Dec 01, 2019 13:21
--- NOTE | 2019-12-01 13:55 | PM&R Progress Note ---
Subjective HPI/CC On Admission Date Seen by Provider: Dec 01, 2019 Time Seen by Provider: 10:00 Subjective/Events-last exam Sister at the bedside today Very talkative Left knee X-ray and Dr. Nash consult for left knee pain Bowels are moving well Eating and drinking well Checked meds and labs Conferred with RN Reviewed therapy notes Review of Systems General: Fatigue, Malaise Neurological: Weakness Objective Exam Vital Signs Vital Signs Date Time Temp Pulse Resp B/P (MAP) Pulse Ox O2 Delivery O2 Flow Rate FiO2 12/01/19 21:00 Room Air 12/01/19 18:00 37.2 80 16 137/77 (97) 97 Capillary Refill : Less Than 3 Seconds General Appearance: No Apparent Distress, WD/WN, Chronically ill HEENT: PERRL/EOMI, Normal ENT Inspection, Pharynx Normal Neck: Full Range of Motion, Normal Inspection, Non Tender, Supple, Carotid Bruit Respiratory: Chest Non Tender, Lungs Clear, Normal Breath Sounds, No Accessory Muscle Use, No Respiratory Distress Cardiovascular: Regular Rate, Rhythm, No Edema, No Gallop, No JVD, No Murmur, Normal Peripheral Pulses Gastrointestinal: Normal Bowel Sounds, No Organomegaly, No Pulsatile Mass, Non Tender, Soft Back: Normal Inspection, No CVA Tenderness, No Vertebral Tenderness Extremity: Normal Capillary Refill, Normal Inspection, Normal Range of Motion, Non Tender, No Calf Tenderness, No Pedal Edema Neurologic/Psychiatric: Alert, Oriented x3, No Motor/Sensory Deficits, Normal Mood/Affect, child care attendant II-XII Norm as Tested, Abnormal Gait, Motor Weakness (3/5 legs) Skin: Normal Color, Warm/Dry Lymphatic: No Adenopathy Results/Procedures Lab Laboratory Tests 12/01/19 04:29 Patient resulted labs reviewed. FIM Transfers Therapy Code Descriptions/Definitions Functional [place] Measure: 0=Not Assessed/NA 4=Minimal Assistance 1=Total Assistance 5=Supervision or Setup 2=Maximal Assistance 6=Modified [place] 3=Moderate Assistance 7=Complete IndependenceSCALE: Activities may be completed with or without assistive devices. 5-Svdzzwvkqi-ahcwewi completes the activity by him/herself with no assistance from a helper. 5-Set-up or Clean-up Assistance-helper sets up or cleans up; patient completes activity. [place] assists only prior to or following the activity. 4-Supervision or Touching Assistance-helper provides verbal cues and/or touchi ng/steadying and/or contact guard assistance as patient completes activity. Assistance may be provided throughout the activity or intermittently. 3-Partial/Moderate Assistance-helper does LESS THAN HALF the effort. [place] lifts, holds or supports trunk or limbs, but provides less than half the effort. 2-Substantial/Maximal Assistance-helper does MORE THAN HALF the effort. [place] lifts or holds trunk or limbs and provides more than half the effort. 3-Psisjoubu-emkhko does ALL the effort. Patient does none of the effort to complete the activity. Or, the assistance of 2 or more helpers is required for the patient to complete the activity. If activity was not attempted, code reason: 7-Patient Refused. 9-Not Applicable-not attempted and the patient did not perform the activity befo re the current illness, exacerbation or injury. 10-Not Attempted due to Environmental Limitations-(lack of equipment, weather restraints, etc.). 88-Not Attempted due to Medical Conditions or Safety Concerns. Roll Left to Right (QC): 5 Sit to Lying (QC): 3 Sit to Stand (QC): 1 Chair/Lhv-qz-Jzrjd Xfer(QC): 1 Car Transfer (QC): 1 Gait Training Does the Patient Walk?: No and Walking Goal NOT indicated Walk 10 feet (QC): 88 Walk 50 ft with 2 Turns(QC): 88 Walk 150 ft (QC): 88 Walking 10ft/uneven surface-QC: 88 Wheelchair Training Does the Pt Use a Wheelchair?: Yes Distance: 150'x2 Wheel 50 ft with 2 turns (QC): 3 Wheel 150 ft (QC): 3 Type of Wheelchair: Manual Stair Training 1 Step (curb) (QC): 88 4 Steps (QC): 88 12 Steps (QC): 88 Balance Picking up an Object (QC): 88 ADL-Treatment Eating (QC): 6 (IND; pt able to drink water ) Oral Hygiene (QC): 5 Shower/Bathe Self (QC): 3 (Min A) Upper Body Dressing (QC): 5 Lower Body Dressing (QC): 3 On/Off Footwear (QC): 1 Toileting Hygiene (QC): 1 (Pt incontinent of bowel and bladder) Assessment/Plan Assessment and Plan Assess & Plan/Chief Complaint Assessment: MS flare Fall s/p UTI New onset AF w/RVR Left knee pain Thrombocytosis Plan: Ortho consult IRF protocol Home meds BM regimen 12/01/19: Very talkative Consult Dr. Nash for left knee pain Bowels moving well Sister at bedside today (1) Left knee pain (2) Atrial fibrillation (3) History of UTI (4) Fall (5) Multiple sclerosis GEORGI WATT DO Dec 01, 2019 13:55
--- NOTE | 2019-12-01 14:27 | NUR ---
"RD ASSESSMENT PMHx: MS; HTN; CA(prostate); afib; chronic constipation PT INTERACTION: Pt was awake and pleasant during nutrition assessment. Pt states current appetite is good. Note avg PO intake >75% x2meal, per chart review. Pt states following a regular diet at home, and has no issues with chewing/swallowing food. Pt states no recent issues with nausea, vomiting, constipation, or diarrhea. Note last BM was 11/30, and pt currently on bowel regimen of colace BID; senna BID; and miralax BID, per chart review. Pt states some recent wt loss, but unsure of amount/timeframe. Note unable to determine recent wt hx, per chart review. ABNORMAL NUTRITION-RELATED LAB VALUES LOW: HIGH: ALT 57 Est. kcal needs: 1975 kcal | 15 kcal/kg Est. Pro needs: 106 g Pro | 0.8 g Pro/kg PES STATEMENT: Given current appetite and PO intake, no nutrition diagnosis at this time (NO-1.1) INTERVENTION: Continue with current diet order of Regular diet. Will continue to follow and reassess as pt needs, intake, and status change. MONITOR/EVALUATE: PO Intake; Plan of Care; Hydration Status; Weight Status; Lab Values Nicole Macedo, MS, RD, LD"
--- NOTE | 2019-12-01 14:41 | Occupational Ther Daily Note ---
OT Current Status-Daily Note Subjective Pt in bed when OT entered room. No c/o pain. Pt agreeable to therapy. Mental Status/Objective Patient Orientation: Person, Place, Situation Attachments: SCD's ADL-Treatment Therapy Code Descriptions/Definitions Functional [place] Measure: 0=Not Assessed/NA 4=Minimal Assistance 1=Total Assistance 5=Supervision or Setup 2=Maximal Assistance 6=Modified [place] 3=Moderate Assistance 7=Complete IndependenceSCALE: Activities may be completed with or without assistive devices. 1-Beutlypzlc-rjtxvpf completes the activity by him/herself with no assistance from a helper. 5-Set-up or Clean-up Assistance-helper sets up or cleans up; patient completes activity. [place] assists only prior to or following the activity. 4-Supervision or Touching Assistance-helper provides verbal cues and/or touching/steadying and/or contact guard assistance as patient completes activity. Assistance may be provided throughout the activity or intermittently. 3-Partial/Moderate Assistance-helper does LESS THAN HALF the effort. [place] lif ts, holds or supports trunk or limbs, but provides less than half the effort. 2-Substantial/Maximal Assistance-helper does MORE THAN HALF the effort. [place] lifts or holds trunk or limbs and provides more than half the effort. 7-Vzljciijy-knmycm does ALL the effort. Patient does none of the effort to complete the activity. Or, the assistance of 2 or more helpers is required for the patient to complete the activity. If activity was not attempted, code reason: 7-Patient Refused. 9-Not Applicable-not attempted and the patient did not perform the activity before the current illness, exacerbation or injury. 10-Not Attempted due to Environmental Limitations-(lack of equipment, weather restraints, etc.). 88-Not Attempted due to Medical Conditions or Safety Concerns. Other Treatment Pt. issued red theraband and exercise program handout for strengthening B UE. OT provided skilled education on proper UE positioning and motion to utilize targeted muscles for bilateral shoulder abduction, shoulder horizontal abduction, bicep curls, and triceps extension. Pt. required redirection to attend to task and would stop exercises when he began talking. He verbalized and demonstrated exercises. Pt in bed with call light when OT left room. All needs met. Education OT Patient Education: Correct positioning, Exercise program, Progress toward Goal/Update tx plan, Purpose of tx/functional activities, Reviewed precautions, Rehab process, Safety issues Teaching Recipient: Patient Teaching Methods: Demonstration, Handout, Discussion Response to Teaching: Verbalize Understanding, Return Demonstration, Reinforcement Needed OT Short Term Goals Short Term Goals Toileting hygiene: 2 Lower body dressin OT Intermediate Goals Intermediate Goals Time Frame: Dec 14, 2019 Eating (QC): 6 Oral Hygiene (QC): 6 Toileting Hygiene (QC): 6 Shower/Bathe Self (QC): 6 Upper Body Dressing (QC): 6 Lower Body Dressing (QC): 6 On/Off Footwear (QC): 6 Additional Goals: 1-Demonstrate ADL Tasks, 2-Verbalize Understanding, 3-ImproveStrength/[place] 1=Demonstrate adherence to instructed precautions during ADL tasks. 2=Patient will verbalize/demonstrate understanding of assistive devices/modifications for ADL. 3=Patient will improve strength/tolerance for activity to enable patient to perform ADL's. OT Education/Plan Problem List/Assessment Assessment: Decreased Activ Tolerance, Dependent Transfers, Impaired Funct Balance, Impaired I ADL's, Impaired Self-Care Skills, Visual-Perceptual Deficit Discharge Recommendations Plan/Recommendations: Continue POC Therapy Discharge Recommendati: Post Acute OT Treatment Plan/Plan of Care Treatment,Training & Education: Yes Patient would benefit from OT for education, treatment and training to promote independence in ADL's, mobility, safety and/or upper extremity function for ADL's. Plan of Care: ADL Retraining, Caregiver Training, Cognitive Retraining, Co ncurrent Therapy, Functional Mobility, Group Exercise/Act as Ind, UE Funct Exercise/Act, W/C Management Training Treatment Duration: Dec 14, 2019 Frequency: At least 5 of 7 days/Wk (IRF) Estimated Hrs Per Day: 1.5 hours per day Agreement: Yes Rehab Potential: Fair Time/GCodes Start Time: 14:00 Stop Time: 14:15 Total Time Billed (hr/min): 15 Billed Treatment Time 1, EX (15 minutes) CHANCE SUGGS OT Dec 01, 2019 14:41
[2019-12-01] MEDS: NAPROXEN 250 MG (NAPROSYN) TABLET PO SCH (17:51)
[2019-12-01 18:00] VITALS: BP 137/77
[2019-12-01] MEDS: ENOXAPARIN 40 MG/0.4 ML (LOVENOX) SYR SC SCH (20:23)
[2019-12-02 06:00] VITALS: BP 124/81
--- NOTE | 2019-12-02 06:48 | PM&R Progress Note ---
Subjective HPI/CC On Admission Date Seen by Provider: Dec 02, 2019 Time Seen by Provider: 10:00 Subjective/Events-last exam 12/02/19: Naproxen was started yesterday by Dr. Nash Still continues to talk about the left knee pain Bowels are moving pretty well X-ray of the left knee shows no fracture Sister at the bedside today Very talkative Left knee X-ray and Dr. Nash consult for left knee pain Bowels are moving well Eating and drinking well Checked meds and labs Conferred with RN Reviewed therapy notes Review of Systems General: Fatigue, Malaise Neurological: Weakness Objective Exam Vital Signs Vital Signs Date Time Temp Pulse Resp B/P (MAP) Pulse Ox O2 Delivery O2 Flow Rate FiO2 12/02/19 18:00 36.3 71 18 123/80 (94) 97 Room Air Capillary Refill : Less Than 3 Seconds General Appearance: No Apparent Distress, WD/WN, Chronically ill HEENT: PERRL/EOMI, Normal ENT Inspection, Pharynx Normal Neck: Full Range of Motion, Normal Inspection, Non Tender, Supple, Carotid Bruit Respiratory: Chest Non Tender, Lungs Clear, Normal Breath Sounds, No Accessory Muscle Use, No Respiratory Distress Cardiovascular: Regular Rate, Rhythm, No Edema, No Gallop, No JVD, No Murmur, Normal Peripheral Pulses Gastrointestinal: Normal Bowel Sounds, No Organomegaly, No Pulsatile Mass, Non Tender, Soft Back: Normal Inspection, No CVA Tenderness, No Vertebral Tenderness Extremity: Normal Capillary Refill, Normal Inspection, Normal Range of Motion, Non Tender, No Calf Tenderness, No Pedal Edema Neurologic/Psychiatric: Alert, Oriented x3, No Motor/Sensory Deficits, Normal Mood/Affect, medical terminologist II-XII Norm as Tested, Abnormal Gait, Motor Weakness (3/5 legs) Skin: Normal Color, Warm/Dry Lymphatic: No Adenopathy Results/Procedures Lab Patient resulted labs reviewed. FIM Transfers Therapy Code Descriptions/Definitions Functional [place] Measure: 0=Not Assessed/NA 4=Minimal Assistance 1=Total Assistance 5=Supervision or Setup 2=Maximal Assistance 6=Modified [place] 3=Moderate Assistance 7=Complete IndependenceSCALE: Activities may be completed with or without assistive devices. 1-Idhrgziewj-afbclxu completes the activity by him/herself with no assistance from a helper. 5-Set-up or Clean-up Assistance-helper sets up or cleans up; patient completes activity. [place] assists only prior to or following the activity. 4-Supervision or Touching Assistance-helper provides verbal cues and/or touching/steadying and/or contact guard assistance as patient completes activity. Assistance may be provided throughout the activity or intermittently. 3-Partial/Moderate Assistance-helper does LESS THAN HALF the effort. [place] lifts, holds or supports trunk or limbs, but provides less than half the effort. 2-Substantial/Maximal Assistance-helper does MORE THAN HALF the effort. [place] lifts or holds trunk or limbs and provides more than half the effort. 9-Nwemlllzq-zghuzy does ALL the effort. Patient does none of the effort to complete the activity. Or, the assistance of 2 or more helpers is required for the patient to complete the activity. If activity was not attempted, code reason: 7-Patient Refused. 9-Not Applicable-not attempted and the patient did not perform the activity before the current illness, exacerbation or injury. 10-Not Attempted due to Environmental Limitations-(lack of equipment, weather restraints, etc.). 88-Not Attempted due to Medical Conditions or Safety Concerns. Roll Left to Right (QC): 5 Sit to Lying (QC): 3 Sit to Stand (QC): 1 Chair/Dvs-rr-Rfjwb Xfer(QC): 1 Car Transfer (QC): 1 Gait Training Does the Patient Walk?: No and Walking Goal NOT indicated Walk 10 feet (QC): 88 Walk 50 ft with 2 Turns(QC): 88 Walk 150 ft (QC): 88 Walking 10ft/uneven surface-QC: 88 Wheelchair Training Does the Pt Use a Wheelchair?: Yes Distance: 150'x2 Wheel 50 ft with 2 turns (QC): 3 Wheel 150 ft (QC): 3 Type of Wheelchair: Manual Stair Training 1 Step (curb) (QC): 88 4 Steps (QC): 88 12 Steps (QC): 88 Balance Picking up an Object (QC): 88 ADL-Treatment Eating (QC): 6 (IND; pt able to drink water ) Oral Hygiene (QC): 5 Shower/Bathe Self (QC): 3 (Mod) Upper Body Dressing (QC): 5 Lower Body Dressing (QC): 2 On/Off Footwear (QC): 1 Toileting Hygiene (QC): 1 (Pt incontinent of bowel and bladder) Assessment/Plan Assessment and Plan Assess & Plan/Chief Complaint Assessment: MS flare Fall s/p UTI New onset AF w/RVR Left knee pain Thrombocytosis Plan: Ortho consult IRF protocol Home meds BM regimen 12/01/19: Very talkative Consult Dr. Nash for left knee pain Bowels moving well Sister at bedside today 12/02/19: Continue Naproxen for left knee pain Bowels moving well Right side is still very weak (1) Left knee pain (2) Atrial fibrillation (3) History of UTI (4) Fall (5) Multiple sclerosis GEORGI WATT DO Dec 02, 2019 06:48
[2019-12-02 07:56] VITALS: BP 136/74
[2019-12-02] MEDS: ASPIRIN 81 MG CHEW (CHILDREN'S ASA) PO SCH (07:57)
[2019-12-02] MEDS: meTOproloL SUCCINATE 50 MG (TOPROL XL) TAB PO SCH (07:57)
[2019-12-02] MEDS: NAPROXEN 250 MG (NAPROSYN) TABLET PO SCH ×2 (07:58→17:12)
[2019-12-02] MEDS: DOCUSATE SODIUM 100 MG (COLACE) CAP PO SCH ×2 (09:00→21:14)
[2019-12-02] MEDS: polyethylene glycoL POWDER 17 GM (MIRALAX) PACK PO SCH ×2 (09:00→21:14)
[2019-12-02] MEDS: SENNA W/DOCUSATE (SENOKOT S) TABLET PO SCH ×2 (09:00→21:14)
--- NOTE | 2019-12-02 11:39 | Speech Therapy Daily Note ---
Speech Daily Progress Note Subjective Date Seen by Provider: Dec 02, 2019 Time Seen by Provider: 00:30 Patient was resting in his bed watching television when I entered his room. Objective Patient completed a series of q/a related to his needs, hospital stay etc. with 90% given min to mod cuing. Assessment Assessment Current Status: Good Progress Treatment Plan Continue Plan of Care Speech Short Term Goals Short Term Goals Short Term Goals 1) The patient will complete memory tasks related to his daily needs at 90% or greater with minimal cues. 2) The patient will complete safety awareness tasks related to his daily needs at 90% or greater with minimal cues. 3) The patient will complete problem solving tasks related to his daily needs at 90% or greater with minimal cues. Speech Shelter Goals Construction Administrative Assistant Goals Patient will improve cognitive-communication necessary for safety and daily living tasks with minimal assist. Speech-Plan Patient/Family Goals Patient/Family Goals: Patient plans on returning to his home with family support. Treatment Plan Speech Therapy Treatment Plan: Continue Plan of Care Treatment Duration: Dec 10, 2019 Frequency: 4 times per week (Patient will receive skilled ST 4-5x per week) Estimated Hrs Per Day: .5 hour per day Rehab Potential: Fair Barriers to Learning: Patient' recent health changes, patient's mild cognitive deficits Pt/Family Agrees to Plan: Yes Safety Risks/Education Teaching Recipient: Patient, Primary Caregiver, Significant Other Teaching Methods: Demonstration, Discussion Response to Teaching: Verbalize Understanding Education Topics Provided: Continued safety within his room, communication of wants/needs Time Speech Therapy Time In: 09:00 Speech Therapy Time Out: 09:30 Total Billed Time: 30 Billed Treatment Time 1, ROYAL Lowry Dec 02, 2019 11:39
--- NOTE | 2019-12-02 12:00 | Physical Therapy Daily Note ---
PT Daily Note-Current Subjective Pt sitting up in bed upon arrival. Pt agrees to PT despite reporting some fatigue. Mental Status Patient Orientation: Person, Place, Time, Situation Transfers SCALE: Activities may be completed with or without assistive devices. 6-Hkuocfbnjv-tgabkgh completes the activity by him/herself with no assistance from a helper. 5-Set-up or Clean-up Assistance-helper sets up or cleans up; patient completes activity. [place] assists only prior to or following the activity. 4-Supervision or Touching Assistance-helper provides verbal cues and/or touching/steadying and/or contact guard assistance as patient completes activity. Assistance may be provided throughout the activity or intermittently. 3-Partial/Moderate Assistance-helper does LESS THAN HALF the effort. [place] lifts, holds or supports trunk or limbs, but provides less than half the effort. 2-Substantial/Maximal Assistance-helper does MORE THAN HALF the effort. [place] lifts or holds trunk or limbs and provides more than half the effort. 7-Umwgahcic-scxvsc does ALL the effort. Patient does none of the effort to complete the activity. Or, the assistance of 2 or more helpers is required for the patient to complete the activity. If activity was not attempted, code reason: 7-Patient Refused. 9-Not Applicable-not attempted and the patient did not perform the activity before the current illness, exacerbation or injury. 10-Not Attempted due to Environmental Limitations-(lack of equipment, weather restraints, etc.). 88-Not Attempted due to Medical Conditions or Safety Concerns. Exercises Supine Ex: Ankle pumps, Quad Set, Glut sets, Heel Slides, Hip abd/add Supine Reps: 20 (2 sets) Treatments Pt completes Supine Ex in bed. Pt also discusses MS progression and what pt has been dealing with daily. SW arrives at end of session to talk to pt about week ly ARU mtg. Pt has all needs met, call light in hand and OT arriving. Assessment Current Status: Fair Progress Pt fatigues easily. PT Short Term Goals Short Term Goals Time Frame: Dec 07, 2019 Roll Left & Right: 4 Sit to lyin Lying to sitting on side of be: 3 Sit to stand: 2 Chair/bao-vn-zuiwu transfer: 2 PT Fisher Pot Goals [place] Goals PT [place] Goals Time Frame: Dec 21, 2019 Roll Left & Right (QC): 6 Sit to Lying (QC): 4 Lying-Sitting on Side/Bed(QC): 4 Sit to Stand (QC): 3 Chair/Fgx-qt-Wfrwm Xfer(QC): 3 Toilet Transfer (QC): 3 Car Transfer (QC): 3 Does the Patient Walk: No and Walking Goal NOT indicated Walk 10 feet (QC): 88 Walk 50ft with 2 Turns (QC): 88 Walk 150 ft (QC): 88 Walking 10ft on Uneven Surface: 88 1 Step (curb) (QC): 88 4 Steps (QC): 88 12 Steps (QC): 88 Picking up an Object (QC): 88 Wheel 50 feet with 2 turns (QC: 6 Wheel 150 feet: 6 PT Plan Problem List Problem List: Activity Tolerance, Functional Strength Treatment/Plan Treatment Plan: Continue Plan of Care Treatment Plan: Bed Mobility, Education, Functional Activity [place], Functional Strength, Group Therapy, Gait, Safety, Therapeutic Exercise, Transfers Treatment Duration: Dec 21, 2019 Frequency: At least 5 of 7 days/Wk (IRF) Estimated Hrs Per Day: 1.5 hours per day Patient and/or Family Agrees t: Yes Safety Risks/Education Patient Education: Correct Positioning, Safety Issues Teaching Recipient: Patient Teaching Methods: Discussion Response to Teaching: Verbalize Understanding Time/GCodes Time In: 945 Time Out: 1030 Total Billed Treatment Time: 45 Total Billed Treatment 1, EX x2 (30m) & FA (15m) LUCIA MARIE BATCH PLANT OPERATOR Dec 02, 2019 12:00
--- NOTE | 2019-12-02 12:55 | NUR ---
Patient Care Conference Discussed summary with patient. Patient is in agreement with team's recommendation to reevaluate progress next week. Patient reports the pain in his left knee has improved. He reports "pressure" in his left knee while showering this morning, but not pain. Patient appears very motivated to participate with therapies with a discharge goal of returning to his sister's home.
--- NOTE | 2019-12-02 13:20 | Occupational Ther Daily Note ---
OT Current Status-Daily Note Subjective Pt in bed when OT entered room. No c/o pain. Pt agreeable to therapy. Mental Status/Objective Patient Orientation: Person, Place, Situation ADL-Treatment Therapy Code Descriptions/Definitions Functional [place] Measure: 0=Not Assessed/NA 4=Minimal Assistance 1=Total Assistance 5=Supervision or Setup 2=Maximal Assistance 6=Modified [place] 3=Moderate Assistance 7=Complete IndependenceSCALE: Activities may be completed with or without assistive devices. 9-Ffjjtnjeeh-ziqvlvn completes the activity by him/herself with no assistance from a helper. 5-Set-up or Clean-up Assistance-helper sets up or cleans up; patient completes activity. [place] assists only prior to or following the activity. 4-Supervision or Touching Assistance-helper provides verbal cues and/or touching/steadying and/or contact guard assistance as patient completes activity. Assistance may be provided throughout the activity or intermittently. 3-Partial/Moderate Assistance-helper does LESS THAN HALF the effort. [place] lifts, holds or supports trunk or limbs, but provides less than half the effort. 2-Substantial/Maximal Assistance-helper does MORE THAN HALF the effort. [place] lifts or holds trunk or limbs and provides more than half the effort. 7-Zatcrzlsw-ewggwk does ALL the effort. Patient does none of the effort to complete the activity. Or, the assistance of 2 or more helpers is required for the patient to complete the activity. If activity was not attempted, code reason: 7-Patient Refused. 9-Not Applicable-not attempted and the patient did not perform the activity before the current illness, exacerbation or injury. 10-Not Attempted due to Environmental Limitations-(lack of equipment, weather restraints, etc.). 88-Not Attempted due to Medical Conditions or Safety Concerns. Shower/Bathe Self (QC): 3 (Mod A) On/Off Footwear: 4 Toileting Hygiene (QC): 1 (Pt incontinent of bladder) Pt excited to shower with OT this session. He transferred supine-sit with SBA. Sit-stand machine used to transfer to shower chair. Pt. required mod assist to bathe and dry lower legs and feet. Pt transferred to reclining chair using sit- stand machine. He was incontinent of urine while standing, and required dependent assistance for cleanup. Pt able to recall proper positioning and motions for 7/7 exercises with red theraband with bilateral UE. He required max A to problem solve through rescheduling a doctor's appointment during session. Pt. in reclining chair with call light and phone. All needs met. Education OT Patient Education: Correct positioning, Exercise program, Modified ADL techniques, Progress toward Goal/Update tx plan, Purpose of tx/functional activities, Reviewed precautions, Rehab process, Safety issues, Transfer techniques Teaching Recipient: Patient Teaching Methods: Demonstration, Discussion Response to Teaching: Verbalize Understanding, Return Demonstration, Reinforcement Needed OT Short Term Goals Short Term Goals Toileting hygiene: 2 Lower body dressin OT Financial Compliance Manager Goals Financial Compliance Manager Goals Time Frame: Dec 14, 2019 Eating (QC): 6 Oral Hygiene (QC): 6 Toileting Hygiene (QC): 6 Shower/Bathe Self (QC): 6 Upper Body Dressing (QC): 6 Lower Body Dressing (QC): 6 On/Off Footwear (QC): 6 Additional Goals: 1-Demonstrate ADL Tasks, 2-Verbalize Understanding, 3- ImproveStrength/[place] 1=Demonstrate adherence to instructed precautions during ADL tasks. 2=Patient will verbalize/demonstrate understanding of assistive devices/modifications for ADL. 3=Patient will improve strength/tolerance for activity to enable patient to perform ADL's. OT Education/Plan Problem List/Assessment Assessment: Dependent Transfers, Impaired Bed Mobility, Impaired Funct Balance, Impaired I ADL's, Impaired Self-Care Skills, Visual-Perceptual Deficit Discharge Recommendations Plan/Recommendations: Continue POC Treatment Plan/Plan of Care Treatment,Training & Education: Yes Patient would benefit from OT for education, treatment and training to promote independence in ADL's, mobility, safety and/or upper extremity function for ADL's. Plan of Care: ADL Retraining, Caregiver Training, Cognitive Retraining, Concurrent Therapy, Functional Mobility, Group Exercise/Act as Ind, UE Funct Exercise/Act, W/C Management Training Treatment Duration: Dec 14, 2019 Frequency: At least 5 of 7 days/Wk (IRF) Estimated Hrs Per Day: 1.5 hours per day Agreement: Yes Rehab Potential: Fair Time/GCodes Start Time: 10:30 Stop Time: 11:30 Total Time Billed (hr/min): 60 Billed Treatment Time 1, ADL 3 (45 minutes), EX (15 minutes) CHANCE SUGGS OT Dec 02, 2019 13:20
--- NOTE | 2019-12-02 15:16 | NUR ---
CM/SS ADMISSION Patient was admitted to ARU 11/30/19 from [facility] for Multiple Sclerosis flare. Other diagnoses are, in part, left knee pain/osteoarthritis, new onset atrial fibrillation with RVR, history of UTI, fall. Per patient, he was diagnosed with MS in 2018. He was disabled through Social Security August of that year and began receiving monthly disability benefits 02/2018. Patient has resided in the home of his sister in [place] since April 2019. He was living in [place] and moved here after a divorce. The home has a walk out lower level/basement that is being remodeled for patient. This project is not yet complete, but patient has been staying upstairs in the sunroom with a bathroom and kitchen in close proximity. Per our discussion, he indicates he can return to the home under the same arrangement if his living quarters are not yet final. Patient reports that he fell outside and army crawled into the house to get out of the heat. He self reports he did not recover to his former state and was transported to [facility] via EMS. PCP: Dr. Rory Henderson, [facility] [phone] PHARMACY: [address] [place] [address] INSURANCE: Uninsured, regine care application will be initiated by [facility] [employer]. Patient's Medicare should become effective January 2020, 2 years after disability benefits started. DME: Patient has Rollator walker. He indicates he has no other DME, therapy team to make recommendations for new assistive devices appropriate to home performance and safety. Patient indicates his sister is trying to get him a hospital bed for the home. BARRIERS TO DISCHARGE PLANNING: Chronic MS with debility, home arrangement since his apartment will have stairs from main to lower floors. The home does have a direct exit outside and they are considering a concrete pad for him to park his car and be able to go right into the home from there. CONTACTS: Allyssa Nguyen, sister [address] [place] [address] Jeffrey Gonzalez, [place], [place] [phone] Patient was presented his Summary to patient care conference prior to story writer's visit. He understands the purpose and process and that his next review will be 12/08/19.
--- NOTE | 2019-12-02 15:29 | Occupational Ther Daily Note ---
OT Current Status-Daily Note Subjective Pt in reclining chair when OT entered room. No c/o pain. Pt agreeable to therapy. Mental Status/Objective Patient Orientation: Person, Place, Time, Situation ADL-Treatment Therapy Code Descriptions/Definitions Functional [place] Measure: 0=Not Assessed/NA 4=Minimal Assistance 1=Total Assistance 5=Supervision or Setup 2=Maximal Assistance 6=Modified [place] 3=Moderate Assistance 7=Complete IndependenceSCALE: Activities may be completed with or without assistive devices. 8-Indiauioqr-jezicyg completes the activity by him/herself with no assistance from a helper. 5-Set-up or Clean-up Assistance-helper sets up or cleans up; patient completes activity. [place] assists only prior to or following the activity. 4-Supervision or Touching Assistance-helper provides verbal cues and/or touch ing/steadying and/or contact guard assistance as patient completes activity. Assistance may be provided throughout the activity or intermittently. 3-Partial/Moderate Assistance-helper does LESS THAN HALF the effort. [place] lifts, holds or supports trunk or limbs, but provides less than half the effort. 2-Substantial/Maximal Assistance-helper does MORE THAN HALF the effort. [place] lifts or holds trunk or limbs and provides more than half the effort. 2-Tyvmsunga-zumgrh does ALL the effort. Patient does none of the effort to complete the activity. Or, the assistance of 2 or more helpers is required for the patient to complete the activity. If activity was not attempted, code reason: 7-Patient Refused. 9-Not Applicable-not attempted and the patient did not perform the activity before the current illness, exacerbation or injury. 10-Not Attempted due to Environmental Limitations-(lack of equipment, weather restraints, etc.). 88-Not Attempted due to Medical Conditions or Safety Concerns. Other Treatment Pt. in chair asleep when OT entered room. Pt. groggy and disoriented when OT woke him up. Pt. was able to become aware of surroundings with cues. Pt transferred from reclining chair to w/c with sit-stand machine. He was transported to therapy gym. Once in gym, pt participated in 15 minutes without rest breaks on the arm bike at moderate resistance to increase B UE strength and endurance for functional activities. Pt with PT in therapy gym at the end of the session. All needs met. Education OT Patient Education: Correct positioning, Energy conservation, Exercise program, Progress toward Goal/Update tx plan, Purpose of tx/functional activities, Reviewed precautions, Rehab process, Safety issues, Transfer techniques Teaching Recipient: Patient Teaching Methods: Demonstration, Discussion Response to Teaching: Verbalize Understanding, Return Demonstration OT Short Term Goals Short Term Goals Toileting hygiene: 2 Lower body dressin OT Office Auditor Goals Detention Goals Time Frame: Dec 14, 2019 Eating (QC): 6 Oral Hygiene (QC): 6 Toileting Hygiene (QC): 6 Shower/Bathe Self (QC): 6 Upper Body Dressing (QC): 6 Lower Body Dressing (QC): 6 On/Off Footwear (QC): 6 Additional Goals: 1-Demonstrate ADL Tasks, 2-Verbalize Understanding, 3-Impr oveStrength/[place] 1=Demonstrate adherence to instructed precautions during ADL tasks. 2=Patient will verbalize/demonstrate understanding of assistive devices/modifications for ADL. 3=Patient will improve strength/tolerance for activity to enable patient to perform ADL's. OT Education/Plan Problem List/Assessment Assessment: Decreased Activ Tolerance, Decreased UE Strength, Dependent Transfers, Impaired Funct Balance, Impaired I ADL's, Impaired Self-Care Skills, Visual-Perceptual Deficit Discharge Recommendations Plan/Recommendations: Continue POC Treatment Plan/Plan of Care Treatment,Training & Education: Yes Patient would benefit from OT for education, treatment and training to promote independence in ADL's, mobility, safety and/or upper extremity function for ADL's. Plan of Care: ADL Retraining, Caregiver Training, Cognitive Retraining, Concurrent Therapy, Functional Mobility, Group Exercise/Act as Ind, UE Funct Exercise/Act, W/C Management Training Treatment Duration: Dec 14, 2019 Frequency: At least 5 of 7 days/Wk (IRF) Estimated Hrs Per Day: 1.5 hours per day Agreement: Yes Rehab Potential: Fair Time/GCodes Start Time: 13:30 Stop Time: 14:00 Total Time Billed (hr/min): 30 Billed Treatment Time 1, EX 2 (30 minutes) CHANCE SUGGS OT Dec 02, 2019 15:29
--- NOTE | 2019-12-02 15:41 | NUR ---
CM/SS CONCURRENT DOCUMENTATION Patient has personally adjusted his post hospital follow up appointments as follows: Dr. Rory Henderson, DO FROM December 07 TO December 09 at [address] [facility] [address] [place] [address] Dr. Carlos Enrique Xavier MD, [facility] Neurology NEW: January 04, 2020 at 1820 [id number]. [phone] or [phone]
--- NOTE | 2019-12-02 16:32 | Physical Therapy Daily Note ---
PT Daily Note-Current Subjective Pt sitting in chair in Therapy Gym after just finishing with OT upon arrival. Pt agrees to PT. Pain Location: No Pain Reported Comment: Pt reports cold or tingling sensation on R LE. Mental Status Patient Orientation: Person, Place, Situation Transfers SCALE: Activities may be completed with or without assistive devices. 6-Txfyndicbb-qquotpy completes the activity by him/herself with no assistance from a helper. 5-Set-up or Clean-up Assistance-helper sets up or cleans up; patient completes activity. [place] assists only prior to or following the activity. 4-Supervision or Touching Assistance-helper provides verbal cues and/or touching/steadying and/or contact guard assistance as patient completes activity. Assistance may be provided throughout the activity or intermittently. 3-Partial/Moderate Assistance-helper does LESS THAN HALF the effort. [place] lifts, holds or supports trunk or limbs, but provides less than half the effort. 2-Substantial/Maximal Assistance-helper does MORE THAN HALF the effort. [place] lifts or holds trunk or limbs and provides more than half the effort. 3-Ezjdrvhdh-xqdktw does ALL the effort. Patient does none of the effort to complete the activity. Or, the assistance of 2 or more helpers is required for the patient to complete the activity. If activity was not attempted, code reason: 7-Patient Refused. 9-Not Applicable-not attempted and the patient did not perform the activity before the current illness, exacerbation or injury. 10-Not Attempted due to Environmental Limitations-(lack of equipment, weather restraints, etc.). 88-Not Attempted due to Medical Conditions or Safety Concerns. Sit to Lying (QC): 3 Lying to Sitting/Side of Bed(Q: 3 Sit to Stand (QC): 1 Chair/Xlj-jj-Dyvgg Xfer(QC): 3 Wheelchair Training Does the Pt Use a Wheelchair?: Yes Wheel 50 ft with 2 turns (QC): 5 Wheel 150 ft (QC): 5 Type of Wheelchair: Manual Exercises Seated Therapy Exercises: Ankle pumps, Long arc quads, Hip flexion, Kicking activity, Hip abd/add Seated Reps: 20 (2 sets) Treatments Pt completes Seated EX before propelling [facility] back to room. MASTIC WORKER transfers pt from [facility] to EOB via Sit to Stand lift. MASTIC WORKER assists pt with transferring to Supine in bed. Pt resting and has all needs met, call light in hand. Assessment Current Status: Fair Progress Pt has difficulty lifting B LE and MASTIC WORKER assists. PT Short Term Goals Short Term Goals Time Frame: Dec 07, 2019 Roll Left & Right: 4 Sit to lyin Lying to sitting on side of be: 3 Sit to stand: 2 Chair/ijy-ht-fysgq transfer: 2 PT Information Security Risk Analyst Goals Information Security Risk Analyst Goals PT Shelter Goals Time Frame: Dec 21, 2019 Roll Left & Right (QC): 6 Sit to Lying (QC): 4 Lying-Sitting on Side/Bed(QC): 4 Sit to Stand (QC): 3 Chair/Ixq-oc-Zjgxk Xfer(QC): 3 Toilet Transfer (QC): 3 Car Transfer (QC): 3 Does the Patient Walk: No and Walking Goal NOT indicated Walk 10 feet (QC): 88 Walk 50ft with 2 Turns (QC): 88 Walk 150 ft (QC): 88 Walking 10ft on Uneven Surface: 88 1 Step (curb) (QC): 88 4 Steps (QC): 88 12 Steps (QC): 88 Picking up an Object (QC): 88 Wheel 50 feet with 2 turns (QC: 6 Wheel 150 feet: 6 PT Plan Problem List Problem List: Activity Tolerance, Functional Strength, Safety, Balance, Transfer Treatment/Plan Treatment Plan: Continue Plan of Care Treatment Plan: Bed Mobility, Education, Functional Activity [place], Functional Strength, Group Therapy, Gait, Safety, Therapeutic Exercise, Transfers Treatment Duration: Dec 21, 2019 Frequency: At least 5 of 7 days/Wk (IRF) Estimated Hrs Per Day: 1.5 hours per day Patient and/or Family Agrees t: Yes Safety Risks/Education Patient Education: Transfer Techniques, Correct Positioning, Safety Issues Response to Teaching: Verbalize Understanding Time/GCodes Time In: 1400 Time Out: 1430 Total Billed Treatment Time: 30 Total Billed Treatment 1, EX (20m) & FA (10m) LUCIA MARIE MASTIC WORKER Dec 02, 2019 16:32
[2019-12-02 18:00] VITALS: BP 123/80
[2019-12-02] MEDS: ENOXAPARIN 40 MG/0.4 ML (LOVENOX) SYR SC SCH (21:27)
[2019-12-03 06:00] VITALS: BP 125/85
[2019-12-03] MEDS: SENNA W/DOCUSATE (SENOKOT S) TABLET PO SCH ×2 (07:52→19:52)
[2019-12-03] MEDS: polyethylene glycoL POWDER 17 GM (MIRALAX) PACK PO SCH ×2 (07:52→19:51)
[2019-12-03] MEDS: DOCUSATE SODIUM 100 MG (COLACE) CAP PO SCH ×2 (07:52→19:51)
[2019-12-03] MEDS: NAPROXEN 250 MG (NAPROSYN) TABLET PO SCH ×2 (08:46→17:27)
[2019-12-03] MEDS: ASPIRIN 81 MG CHEW (CHILDREN'S ASA) PO SCH (08:47)
[2019-12-03] MEDS: meTOproloL SUCCINATE 50 MG (TOPROL XL) TAB PO SCH (08:48)
--- NOTE | 2019-12-03 09:58 | Individualized Plan of Care ---
Individualized Plan of Care Rehab Nursing IPOC Order Admission Date Nov 30, 2019 at 13:21 Current Orders Orders Admission Order(Inpt,Obs,Sdc) (11/30/19 10:11) Vital Signs: Per Unit Policy ( 08,16,00 (11/30/19 10:11) Santosh Arambula (11/30/19 10:11) Sequential Compression Device Q4H (11/30/19 10:11) Scow Hand-Inpt Rehab Con (11/30/19 10:11) Rehab Nursing Orders-Ipoc (11/30/19 10:11) Physical Therapy Rehab Orders (11/30/19 10:11) Occupational Therapy Rehab Ord (11/30/19 10:11) Speech Therapy Rehab Orders (11/30/19 10:11) Cbc With Automated Diff (12/01/19 06:00) Comprehensive Metabolic Panel (12/01/19 06:00) General/Regular (11/30/19 Lunch) Precautions (Aru) (11/30/19 10:11) Rehab-Intensity Of Therapy (11/30/19 10:11) Initiate Admission Nursing Pro .admission (11/30/19 10:11) Acetaminophen Tablet (Tylenol Tablet) (11/30/19 10:15) Alprazolam Tablet (Xanax Tablet) (11/30/19 10:15) Calcium Carbonate Chew Tablet (Antacid C (11/30/19 10:15) Diphenhydramine Tablet (Benadryl Tablet) (11/30/19 10:15) Docusate Sodium Capsule (Colace Capsule) (11/30/19 21:00) Docusate Sodium Capsule (Colace Capsule) (11/30/19 10:15) Bisacodyl Suppository (Dulcolax Supposit (11/30/19 10:15) Lactulose Oral Solution (Enulose Oral So (11/30/19 10:15) Na Phos/Na Biphos Enema (Fleet Enema Dread (11/30/19 10:15) Guaifenesin/Codeine Syrup (Robitussin Ac (11/30/19 10:15) Loperamide Tablet (Imodium Tablet) (11/30/19 10:15) Enoxaparin Injection (Lovenox Injection) (11/30/19 20:00) Melatonin Tablet (Melatonin Tablet) (11/30/19 10:15) Polyethylene Glycol Powder Pkt (Miralax (11/30/19 21:00) Ondansetron Oral Dissolve Tab (Zofran (11/30/19 10:15) Senna S Tablet (Senokot S Tablet) (11/30/19 21:00) Initiate Admission Nursing Pro .admission (11/30/19 10:11) Admission Arrival Bed Request (11/30/19 13:21) Acetaminophen Tablet/Caplet (Tylenol T (11/30/19 15:30) Acetaminophen Tablet (Tylenol Tablet) (11/30/19 15:45) Aspirin Chewable Tablet (Baby Aspirin Ch (12/01/19 09:00) Metoprolol Succinate (Xl) Tab (Toprol Xl (12/01/19 09:00) (Nf) Diltiazem Hcl (Diltiazem 24hr Er) (12/01/19 09:00) Diltiazem Cd 24 Hr Capsule (Cardizem Cd (12/01/19 09:00) Patient Visit (11/30/19 ) Pt Eval Moderate Complexity (11/30/19 ) Functional Activities, Ea 15 (11/30/19 ) Ambulate 08,12,20 (11/30/19 20:20) Sequential Compression Device Q4H (11/30/19 20:20) Dvt/Vte Risk - Notifiy Physici Q4H (11/30/19 20:20) Manual Differential (12/01/19 04:29) Knee, Left, 3 Views (12/01/19 06:24) Hydrocodone/Apap 10/325 Tablet (Lortab 1 (12/01/19 06:30) Consult Orthopedic Surgery (12/01/19 06:24) Naproxen Tablet (Naprosyn Tablet) (12/01/19 18:00) Patient Visit (12/01/19 ) Speech Sound Lang Comp (12/01/19 ) Treat. Speech/Lang/Voice (12/01/19 ) Patient Visit (12/01/19 ) Functional Activities, Ea 15 (12/01/19 ) Exercise Therap, Ea 15 Min (12/01/19 ) Patient Visit (12/02/19 ) Treat. Speech/Lang/Voice (12/02/19 ) Patient Visit (12/02/19 ) Exercise Therap, Ea 15 Min (12/02/19 ) Functional Activities, Ea 15 (12/02/19 ) Rehab Nursing Orders: Ongoing Assess. of Cognitive Status, Ongoing Assess. of Function Status, Bladder Management, Bladder Scan, Bladder Training, Bowel Management, Bowel Training, Disease Management & Educaiton, DVT Prophylaxis, Fall Prevention, Fluid/Electrolyte/Nutrition Mgmt, Infection Prevention, Medication Management & Education, Management of Risks & Complications, Management of Skin Intergrity, Nutrition Management, Pain Management, P atient/Family Support, Safety Management Intensity of Therapy to be met Patient to be seen: Min.3h per day/5 of 7d PT IPOC Problem List: Activity Tolerance, Functional Strength, Safety, Balance, Transfer Treatment Plan: Continue Plan of Care Bed Mobility, Education, Functional Activity [place], Functional Strength, Group Therapy, Gait, Safety, Therapeutic Exercise, Transfers Treatment Duration: Dec 21, 2019 Frequency: At least 5 of 7 days/Wk (IRF) Estimated Hrs Per Day: 1.5 hours per day OT IPOC Problems: Decreased Activ Tolerance, Decreased UE Strength, Dependent Transfers, Impaired Funct Balance, Impaired I ADL's, Impaired Self-Care Skills, Visual-Perceptual Deficit OT Treatment, Training and Edu: Yes Plan of Care: ADL Retraining, Caregiver Training, Cognitive Retraining, Concurrent Therapy, Functional Mobility, Group Exercise/Act as Ind, UE Funct Exercise/Act, W/C Management Training Treatment Duration: Dec 14, 2019 Frequency: At least 5 of 7 days/Wk (IRF) Estimated Hrs Per Day: 1.[address] IPOC Speech Therapy Treatment Plan: Continue Plan of Care Treatment Duration: Dec 10, 2019 Frequency: 4 times per week (Patient will receive skilled ST 4-5x per week) Estimated Hrs Per Day: .5 hour per day Scow Hand/Case Mgmt Scow Hand/Case Managemen: Discharge Planning Dietitian/Automated Cutting Machine Operator Dietitian/Automated Cutting Machine Operator to monitor nutritional status and make changes and/or recommendations as needed and work with speech pathology on dietary upgrades as the occur. Physician IPOC Medical Issues being managed closely and that require the 24 hour availability of a physician: Recent fall and down for 3 days will require close monitoring for any decompensation Medical Issues: Bowel/Bladder Function, DVT Prophylaxis, Falls Precautions, Fluid/Electrolyte/Nutrition Balance, Infection Protection, Pain Management Brief Synthesis of Preadmission Screen, Post-Admission Evaluation, and Therapy Evaluations: PT OT will help patient gain strength and prevent falls and monitor for decompensation along with teaching energy conservation Medical Prognosis: Good Anticipated Length of Stay: 7 days GEORGI WATT DO Dec 03, 2019 09:58
--- NOTE | 2019-12-03 09:59 | PM&R Progress Note ---
Subjective HPI/CC On Admission Date Seen by Provider: Dec 03, 2019 Time Seen by Provider: 10:00 Subjective/Events-last exam 12/03/19: Left knee is better Chronic right-sided weakness will be managed with therapy Fall risk prevention 12/02/19: Naproxen was started yesterday by Dr. Nash Still continues to talk about the left knee pain Bowels are moving pretty well X-ray of the left knee shows no fracture Sister at the bedside today Very talkative Left knee X-ray and Dr. Nash consult for left knee pain Bowels are moving well Eating and drinking well Checked meds and labs Conferred with RN Reviewed therapy notes Review of Systems General: Fatigue, Malaise Objective Exam Vital Signs Vital Signs Date Time Temp Pulse Resp B/P (MAP) Pulse Ox O2 Delivery O2 Flow Rate FiO2 12/03/19 16:30 36.2 72 16 128/80 (96) 97 Room Air Capillary Refill : Less Than 3 Seconds General Appearance: No Apparent Distress, WD/WN, Chronically ill HEENT: PERRL/EOMI, Normal ENT Inspection, Pharynx Normal Neck: Full Range of Motion, Normal Inspection, Non Tender, Supple, Carotid Bruit Respiratory: Chest Non Tender, Lungs Clear, Normal Breath Sounds, No Accessory Muscle Use, No Respiratory Distress Cardiovascular: Regular Rate, Rhythm, No Edema, No Gallop, No JVD, No Murmur, Normal Peripheral Pulses Gastrointestinal: Normal Bowel Sounds, No Organomegaly, No Pulsatile Mass, Non Tender, Soft Back: Normal Inspection, No CVA Tenderness, No Vertebral Tenderness Extremity: Normal Capillary Refill, Normal Inspection, Normal Range of Motion, Non Tender, No Calf Tenderness, No Pedal Edema Neurologic/Psychiatric: Alert, Oriented x3, No Motor/Sensory Deficits, Normal M ood/Affect, bail bond agent II-XII Norm as Tested, Abnormal Gait, Motor Weakness (3/5 legs) Skin: Normal Color, Warm/Dry Lymphatic: No Adenopathy Results/Procedures Lab Patient resulted labs reviewed. FIM Transfers Therapy Code Descriptions/Definitions Functional [place] Measure: 0=Not Assessed/NA 4=Minimal Assistance 1=Total Assistance 5=Supervision or Setup 2=Maximal Assistance 6=Modified [place] 3=Moderate Assistance 7=Complete IndependenceSCALE: Activities may be completed with or without assistive devices. 7-Hbtblnqhqi-wrfvnvi completes the activity by him/herself with no assistance from a helper. 5-Set-up or Clean-up Assistance-helper sets up or cleans up; patient completes activity. [place] assists only prior to or following the activity. 4-Supervision or Touching Assistance-helper provides verbal cues and/or touching/steadying and/or contact guard assistance as patient completes activity. Assistance may be provided throughout the activity or intermittently. 3-Partial/Moderate Assistance-helper does LESS THAN HALF the effort. [place] lifts, holds or supports trunk or limbs, but provides less than half the effort. 2-Substantial/Maximal Assistance-helper does MORE THAN HALF the effort. [place] lifts or holds trunk or limbs and provides more than half the effort. 9-Ooprkfkpf-qpeuqw does ALL the effort. Patient does none of the effort to complete the activity. Or, the assistance of 2 or more helpers is required for the patient to complete the activity. If activity was not attempted, code reason: 7-Patient Refused. 9-Not Applicable-not attempted and the patient did not perform the activity before the current illness, exacerbation or injury. 10-Not Attempted due to Environmental Limitations-(lack of equipment, weather restraints, etc.). 88-Not Attempted due to Medical Conditions or Safety Concerns. Roll Left to Right (QC): 5 Sit to Lying (QC): 3 Sit to Stand (QC): 1 Chair/Hif-py-Pxrsu Xfer(QC): 3 Car Transfer (QC): 1 Gait Training Does the Patient Walk?: No and Walking Goal NOT indicated Walk 10 feet (QC): 88 Walk 50 ft with 2 Turns(QC): 88 Walk 150 ft (QC): 88 Walking 10ft/uneven surface-QC: 88 Wheelchair Training Does the Pt Use a Wheelchair?: Yes Distance: 150'x2 Wheel 50 ft with 2 turns (QC): 5 Wheel 150 ft (QC): 5 Type of Wheelchair: Manual Stair Training 1 Step (curb) (QC): 88 4 Steps (QC): 88 12 Steps (QC): 88 Balance Picking up an Object (QC): 88 ADL-Treatment Eating (QC): 6 (IND; pt able to drink water ) Oral Hygiene (QC): 5 Shower/Bathe Self (QC): 3 (Mod A) Upper Body Dressing (QC): 5 Lower Body Dressing (QC): 2 On/Off Footwear (QC): 4 Toileting Hygiene (QC): 1 (Pt incontinent of bladder) Assessment/Plan Assessment and Plan Assess & Plan/Chief Complaint Assessment: MS flare Fall s/p UTI New onset AF w/RVR Left knee pain Thrombocytosis Plan: Ortho consult IRF protocol Home meds BM regimen 12/01/19: Very talkative Consult Dr. Nash for left knee pain Bowels moving well Sister at bedside today 12/02/19: Continue Naproxen for left knee pain Bowels moving well Right side is still very weak 12/03/19: Continue left knee treatment Chronic right side weakness Fall prevention education (1) Left knee pain (2) Atrial fibrillation (3) History of UTI (4) Fall (5) Multiple sclerosis GEORGI WATT DO Dec 03, 2019 09:59
--- NOTE | 2019-12-03 11:05 | Occupational Ther Daily Note ---
OT Current Status-Daily Note Subjective Pt alert upon OT entry. Pt hesitantly agreeable to therapy, stating he is not quite ready yet. Pt educated on schedule. Pt states 3/10 pain in L knee. Mental Status/Objective Patient Orientation: Normal For Age ADL-Treatment Therapy Code Descriptions/Definitions Functional [place] Measure: 0=Not Assessed/NA 4=Minimal Assistance 1=Total Assistance 5=Supervision or Setup 2=Maximal Assistance 6=Modified [place] 3=Moderate Assistance 7=Complete IndependenceSCALE: Activities may be completed with or without assistive devices. 8-Npovnkbwtc-uekexcx completes the activity by him/herself with no assistance from a helper. 5-Set-up or Clean-up Assistance-helper sets up or cleans up; patient completes activity. [place] assists only prior to or following the activity. 4-Supervision or Touching Assistance-helper provides verbal cues and/or touching/steadying and/or contact guard assistance as patient completes activity . Assistance may be provided throughout the activity or intermittently. 3-Partial/Moderate Assistance-helper does LESS THAN HALF the effort. [place] lifts, holds or supports trunk or limbs, but provides less than half the effort. 2-Substantial/Maximal Assistance-helper does MORE THAN HALF the effort. [place] lifts or holds trunk or limbs and provides more than half the effort. 9-Mbvhhwayy-vhdfiu does ALL the effort. Patient does none of the effort to complete the activity. Or, the assistance of 2 or more helpers is required for the patient to complete the activity. If activity was not attempted, code reason: 7-Patient Refused. 9-Not Applicable-not attempted and the patient did not perform the activity before the current illness, exacerbation or injury. 10-Not Attempted due to Environmental Limitations-(lack of equipment, weather restraints, etc.). 88-Not Attempted due to Medical Conditions or Safety Concerns. Eating (QC): 6 Oral Hygiene (QC): 6 Upper Body Dressing (QC): 5 (s/u EOB) Lower Body Dressing (QC): 3 (Pt able to thread bilaterally with increased effort. Pt educated on AE use, denies use stating how he completes at home. Pt sit to stand from EOB with heightened bed and CGA. Pt's pants hiked with max A as pt unable to take hands from walker. ) Other Treatment Pt bed mob with SBA, completes sit to stand with CGA from heightened bed. Use of sit to stand lift to reach w/c. Pt propels with SUP to gym, completes 5 min mod- max resistance ex for 5 minutes, stating he was fatiguing ~4 min huong and then begins propelling arms with max force. Pt is educated to save energy. Pt continues for ~25 sec. Pt then completes 2 min arm bike ex with min resistance. Pt attempts to push self backward during DO conversation, wheels of w/c locked, pt continues to push, unable to follow cues for safety. Pt returns to room. Sit to stand from w/c with CGA, stands and RLE knee hyperextends. Pt requires cues to fix and to sit. Pt takes steps to bed and ambulates to bed with CGA. Pt then rests and sit to stand from lowered bed without success, requires heightened bed and completes with min A, walks to chair and sits with limited control. Pt educated on bicep and tricep usage during stance, pt educated on theraband positioning for these exercises. Pt return demonstrates with min cues. All needs met, call light in reach. Education OT Patient Education: Correct positioning, Energy conservation, Exercise program, Home exercise program, Modified ADL techniques, Progress toward Goal/Update tx plan, Purpose of tx/functional activities, Rehab process, Safety issues, Transfer techniques, Use of adapted equipment, W/C management Teaching Recipient: Patient Teaching Methods: Demonstration, Discussion Response to Teaching: Verbalize Understanding, Return Demonstration, Reinforcement Needed OT Short Term Goals Short Term Goals Toileting hygiene: 2 Lower body dressin OT Derrick Boat Captain Goals Half-Way Goals Time Frame: Dec 14, 2019 Eating (QC): 6 Oral Hygiene (QC): 6 Toileting Hygiene (QC): 6 Shower/Bathe Self (QC): 6 Upper Body Dressing (QC): 6 Lower Body Dressing (QC): 6 On/Off Footwear (QC): 6 Additional Goals: 1-Demonstrate ADL Tasks, 2-Verbalize Understanding, 3-ImproveStrength/[place] 1=Demonstrate adherence to instructed precautions during ADL tasks. 2=Patient will verbalize/demonstrate understanding of assistive devices/modifications for ADL. 3=Patient will improve strength/tolerance for activity to enable patient to perform ADL's. OT Education/Plan Problem List/Assessment Assessment: Decreased Activ Tolerance, Decreased Safety Aware, Decreased UE Strength, Dependent Transfers, Impaired Funct Balance, Impaired I ADL's, Impaired Self-Care Skills Discharge Recommendations Plan/Recommendations: Continue POC Therapy Discharge Recommendati: Home & Family, Post Acute OT Treatment Plan/Plan of Care Treatment,Training & Education: Yes Patient would benefit from OT for education, treatment and training to promote independence in ADL's, mobility, safety and/or upper extremity function for ADL's. Plan of Care: ADL Retraining, Caregiver Training, Cognitive Retraining, Concurrent Therapy, Functional Mobility, Group Exercise/Act as Ind, UE Funct Exercise/Act, W/C Management Training Treatment Duration: Dec 14, 2019 Frequency: At least 5 of 7 days/Wk (IRF) Estimated Hrs Per Day: 1.5 hours per day Agreement: Yes Rehab Potential: Fair Time/GCodes Start Time: 09:00 Stop Time: 10:00 Total Time Billed (hr/min): 60 Billed Treatment Time 1, ADL, FA, EX, WC (60) MAYKEL LUCAS OTR Dec 03, 2019 11:05
--- NOTE | 2019-12-03 11:10 | Physical Therapy Daily Note ---
PT Daily Note-Current Subjective Pt up in chair, agreeable. Reports 2-3/10 augustina-patellar pain on (L) knee. Reports he was able to "do a little walking" with OT "but that stirred that knee up a little". Mental Status Patient Orientation: Person, Place, Time, Situation Transfers SCALE: Activities may be completed with or without assistive devices. 7-Teknkjhslk-htglfgl completes the activity by him/herself with no assistance from a helper. 5-Set-up or Clean-up Assistance-helper sets up or cleans up; patient completes activity. [place] assists only prior to or following the activity. 4-Supervision or Touching Assistance-helper provides verbal cues and/or surya julieta/steadying and/or contact guard assistance as patient completes activity. Assistance may be provided throughout the activity or intermittently. 3-Partial/Moderate Assistance-helper does LESS THAN HALF the effort. [place] lifts, holds or supports trunk or limbs, but provides less than half the effort. 2-Substantial/Maximal Assistance-helper does MORE THAN HALF the effort. [place] lifts or holds trunk or limbs and provides more than half the effort. 3-Ryjgorsvg-oskzcc does ALL the effort. Patient does none of the effort to complete the activity. Or, the assistance of 2 or more helpers is required for the patient to complete the activity. If activity was not attempted, code reason: 7-Patient Refused. 9-Not Applicable-not attempted and the patient did not perform the activity before the current illness, exacerbation or injury. 10-Not Attempted due to Environmental Limitations-(lack of equipment, weather restraints, etc.). 88-Not Attempted due to Medical Conditions or Safety Concerns. Sit to Lying (QC): 3 Lying to Sitting/Side of Bed(Q: 4 Sit to Stand (QC): 1 Chair/Kou-gc-Zhfav Xfer(QC): 1 Sit<->stand transfer from recliner and WC, mod A x 1 with skilled VCS for sequencing, safety. Decreased safety with sit->stand; Pt has a tendency to move out instead of up, moving to very edge of chair. Initially stands with max hip flexion until knee extension is achieved. Once upright, min A x 1 recliner->WCH->mat table with FWW. After mat exercises, sit<->stand lift utilized due to Pt fatigue. Weight Bearing Right Lower Extremity: Right Full Weight Bearing Left Lower Extremity: Left Full Weight Bearing Gait Training Does the Patient Walk?: No and Walking Goal IS indicated Distance: 2' Walk 10 feet (QC): 88 Walk 50 ft with 2 Turns(QC): 88 Walk 150 ft (QC): 88 Walking 10ft/uneven surface-QC: 88 Gait Persons Needed: 1 Gait Assistive Device: FWW 2' WCH->mat table with FWW, min A x 1. Heavy reliance on UE, reports increased (L) knee pain with weightbearing. Wheelchair Training Does the Pt Use a Wheelchair?: No Exercises Supine Ex: Bridging (on bolster), Quad Set, Glut sets, Knee to chest ((L) knee flexion/extension on SB), Short Arc Quads, Resisted flex/ext (HS sets) Supine Reps: 15 (L) patellar mobilization, tapping for facilitation and skilled VCS to avoid compensation with QS Treatments Transfer training, LE functional strengthening, patellar mobilization. Returned to recliner with all needs met. Assessment Current Status: Fair Progress Pt tolerated fair-well. Reports increased (L) knee pain with activity but less severe rating on the pain scale. Pt does present with augustina-patellar edema on (L) knee as well. Pt impulsive, very weak in glutes and quads/hamstrings (B). Pt may benefit from trial of kinesiotape to (L) knee to improve patellar tracking. PT Short Term Goals Short Term Goals Time Frame: Dec 07, 2019 Roll Left & Right: 4 Sit to lyin Lying to sitting on side of be: 3 Sit to stand: 2 Chair/byn-ad-nsllf transfer: 2 PT Senior Living Goals Senior Living Goals PT Sound Engineering Technician Goals Time Frame: Dec 21, 2019 Roll Left & Right (QC): 6 Sit to Lying (QC): 4 Lying-Sitting on Side/Bed(QC): 4 Sit to Stand (QC): 3 Chair/Lht-ve-Mkqxn Xfer(QC): 3 Toilet Transfer (QC): 3 Car Transfer (QC): 3 Does the Patient Walk: No and Walking Goal NOT indicated Walk 10 feet (QC): 88 Walk 50ft with 2 Turns (QC): 88 Walk 150 ft (QC): 88 Walking 10ft on Uneven Surface: 88 1 Step (curb) (QC): 88 4 Steps (QC): 88 12 Steps (QC): 88 Picking up an Object (QC): 88 Wheel 50 feet with 2 turns (QC: 6 Wheel 150 feet: 6 PT Plan Problem List Problem List: Activity Tolerance, Functional Strength, Safety, Balance, Gait, Transfer, Bed Mobility Treatment/Plan Treatment Plan: Continue Plan of Care Treatment Plan: Bed Mobility, Education, Functional Activity [place], Functional Strength, Group Therapy, Gait, Safety, Therapeutic Exercise, Transfers Treatment Duration: Dec 21, 2019 Frequency: At least 5 of 7 days/Wk (IRF) Estimated Hrs Per Day: 1.5 hours per day Patient and/or Family Agrees t: Yes Safety Risks/Education Patient Education: Transfer Techniques Teaching Recipient: Patient Teaching Methods: Discussion Response to Teaching: Reinforcement Needed Discharge Recommendations Barriers to Progress (L) knee pain Time/GCodes Time In: 1000 Time Out: 1100 Total Billed Treatment Time: 60 Total Billed Treatment 1, FA x 30', Ex x 30' LEON TERRAZAS DPT Dec 03, 2019 11:10
--- NOTE | 2019-12-03 12:48 | Speech Therapy Daily Note ---
Speech Daily Progress Note Subjective Date Seen by Provider: Dec 03, 2019 Time Seen by Provider: 00:30 Patient was resting in his recliner following his PT session. He states he is tired but feels like he is doing better. Objective Patient completed a series of memory tasks related to his daily needs with 80% given minimal cues. Patient does require frequent redirection to stay on task. Assessment Assessment Current Status: Good Progress Treatment Plan Continue Plan of Care Speech Short Term Goals Short Term Goals Short Term Goals 1) The patient will complete memory tasks related to his daily needs at 90% or greater with minimal cues. 2) The patient will complete safety awareness tasks related to his daily needs at 90% or greater with minimal cues. 3) The patient will complete problem solving tasks related to his daily needs at 90% or greater with minimal cues. Speech Restaurant Assistant Manager Goals Restaurant Assistant Manager Goals Patient will improve cognitive-communication necessary for safety and daily living tasks with minimal assist. Speech-Plan Patient/Family Goals Patient/Family Goals: Patient plans on returning home with family support for his daily needs. Treatment Plan Speech Therapy Treatment Plan: Continue Plan of Care Treatment Duration: Dec 10, 2019 Frequency: 4 times per week (Patient will receive skilled ST 4-5x per week) Estimated Hrs Per Day: .5 hour per day Rehab Potential: Fair Barriers to Learning: Patient's recent health decline, mild cognitive deficits Pt/Family Agrees to Plan: Yes Safety Risks/Education Teaching Recipient: Patient Teaching Methods: Demonstration, Discussion Response to Teaching: Verbalize Understanding, Return Demonstration Education Topics Provided: Continued safety within his room and upon his return home Time Speech Therapy Time In: 11:00 Speech Therapy Time Out: 11:30 Total Billed Time: 30 Billed Treatment Time 1ANNY [address] ST Dec 03, 2019 12:48
--- NOTE | 2019-12-03 15:04 | Therapy Group Daily Note ---
Therapy Daily Group Note Patient Education Topic Home Safety, Other List Below (orientation to rehab) Exercises LE Seated Exercise, UE Exercise Session Ratio (pt:therapist): 3:1 Goal of Session: Education on ARU Expectations, Home Safety Strategies, UE/LE Strengthing Goal Met for this Session: Yes Pt Benefit of Group: Contributions to Others, F/U Use of Strategies @Home, Increased Functional Safety, Increased Functional Strength, Socialization Other/Notes Pt. participated in group PT OT session this date. Pt. self -propelled w/c to and from with SBA. Pt. was social, introducing self and shared briefly his hometown and what he might like to eat when he is out of the hospital. Pt. demonstrated seated U&L extremity exercises to others in group reading and following directions from written illustrated exercises which were distributed to all participants just prior to group. Pt. participated well performing all exercises with a few verbal and tactile cues. Home safety was topic of education with patients sharing their knowledge and experiences. Tripping hazards, adequate lighting sources, efficient ways of communication in case of emergency, as well as bathroom rails etc were covered. Explanation of ARU expectations and goals was outlined . Pt. donned mask for entire group session. After group pt. was assisted to room , transferred in to bed and call rock at hand with all needs met. Start Time: 13:00 Stop Time: 14:00 Total Billed Treatment Time: 60 Total Billed Treatment 1, GRP 60minutes MAYKEL LUCAS OTR Dec 03, 2019 15:04
[2019-12-03] MEDS ORDERED: CYCL10TA9 PO (15:26)
[2019-12-03] MEDS: HYDROcodone/APAP 10 MG/325 MG (LORTAB) TAB PO PRN (15:35)
[2019-12-03 16:30] VITALS: BP 128/80
[2019-12-03] MEDS: ENOXAPARIN 40 MG/0.4 ML (LOVENOX) SYR SC SCH (20:29)
[2019-12-04 06:00] VITALS: BP 128/80
--- NOTE | 2019-12-04 06:54 | PM&R Progress Note ---
Subjective HPI/CC On Admission Date Seen by Provider: Dec 04, 2019 Time Seen by Provider: 12:30 Subjective/Events-last exam 12/04/19: BM moved 3 days ago so he took laxatives Left knee pain improved 12/03/19: Left knee is better Chronic right-sided weakness will be managed with therapy Fall risk prevention 12/02/19: Naproxen was started yesterday by Dr. Nash Still continues to talk about the left knee pain Bowels are moving pretty well X-ray of the left knee shows no fracture Sister at the bedside today Very talkative Left knee X-ray and Dr. Nash consult for left knee pain Bowels are moving well Eating and drinking well Checked meds and labs Conferred with RN Reviewed therapy notes Review of Systems General: Fatigue, Malaise Musculoskeletal: leg pain Objective Exam Vital Signs Vital Signs Date Time Temp Pulse Resp B/P (MAP) Pulse Ox O2 Delivery O2 Flow Rate FiO2 12/04/19 16:30 36.2 70 16 132/83 (99) 95 Room Air Capillary Refill : Less Than 3 Seconds General Appearance: No Apparent Distress, WD/WN, Chronically ill HEENT: PERRL/EOMI, Normal ENT Inspection, Pharynx Normal Neck: Full Range of Motion, Normal Inspection, Non Tender, Supple, Carotid Bruit Respiratory: Chest Non Tender, Lungs Clear, Normal Breath Sounds, No Accessory Muscle Use, No Respiratory Distress Cardiovascular: Regular Rate, Rhythm, No Edema, No Gallop, No JVD, No Murmur, Normal Peripheral Pulses Gastrointestinal: Normal Bowel Sounds, No Organomegaly, No Pulsatile Mass, Non Tender, Soft Back: Normal Inspection, No CVA Tenderness, No Vertebral Tenderness Extremity: Normal Capillary Refill, Normal Inspection, Normal Range of Motion, Non Tender, No Calf Tenderness, No Pedal Edema Neurologic/Psychiatric: Alert, Oriented x3, No Motor/Sensory Deficits, Normal Mood/Affect, motorcycle service technician II-XII Norm as Tested, Abnormal Gait, Motor Weakness (3/5 legs) Skin: Normal Color, Warm/Dry Lymphatic: No Adenopathy Results/Procedures Lab Patient resulted labs reviewed. FIM Transfers Therapy Code Descriptions/Definitions Functional [place] Measure: 0=Not Assessed/NA 4=Minimal Assistance 1=Total Assistance 5=Supervision or Setup 2=Maximal Assistance 6=Modified [place] 3=Moderate Assistance 7=Complete IndependenceSCALE: Activities may be completed with or without assistive devices. 2-Wmxrqykxbb-wswtiri completes the activity by him/herself with no assistance from a helper. 5-Set-up or Clean-up Assistance-helper sets up or cleans up; patient completes activity. [place] assists only prior to or following the activity. 4-Supervision or Touching Assistance-helper provides verbal cues and/or touching/steadying and/or contact guard assistance as patient completes activity. Assistance may be provided throughout the activity or intermittently. 3-Partial/Moderate Assistance-helper does LESS THAN HALF the effort. [place] lifts, holds or supports trunk or limbs, but provides less than half the effort. 2-Substantial/Maximal Assistance-helper does MORE THAN HALF the effort. [place] lifts or holds trunk or limbs and provides more than half the effort. 6-Pghgcfbdz-njhapi does ALL the effort. Patient does none of the effort to complete the activity. Or, the assistance of 2 or more helpers is required for the patient to complete the activity. If activity was not attempted, code reason: 7-Patient Refused. 9-Not Applicable-not attempted and the patient did not perform the activity before the current illness, exacerbation or injury. 10-Not Attempted due to Environmental Limitations-(lack of equipment, weather restraints, etc.). 88-Not Attempted due to Medical Conditions or Safety Concerns. Roll Left to Right (QC): 5 Sit to Lying (QC): 3 Sit to Stand (QC): 1 Chair/Urf-yu-Sclod Xfer(QC): 1 Car Transfer (QC): 1 Gait Training Does the Patient Walk?: No and Walking Goal IS indicated Distance: 2' Walk 10 feet (QC): 88 Walk 50 ft with 2 Turns(QC): 88 Walk 150 ft (QC): 88 Walking 10ft/uneven surface-QC: 88 Gait Persons Needed: 1 Gait Assistive Device: FWW Wheelchair Training Does the Pt Use a Wheelchair?: No Distance: 150'x2 Wheel 50 ft with 2 turns (QC): 5 Wheel 150 ft (QC): 5 Type of Wheelchair: Manual Stair Training 1 Step (curb) (QC): 88 4 Steps (QC): 88 12 Steps (QC): 88 Balance Picking up an Object (QC): 88 ADL-Treatment Eating (QC): 6 Oral Hygiene (QC): 6 Shower/Bathe Self (QC): 3 (Mod A) Upper Body Dressing (QC): 5 (s/u EOB) Lower Body Dressing (QC): 3 (Pt able to thread bilaterally with increased effort. Pt educated on AE use, denies use stating how he completes at home. Pt sit to stand from EOB with heightened bed and CGA. Pt's pants hiked with max A as pt unable to take hands from walker. ) On/Off Footwear (QC): 4 Toileting Hygiene (QC): 1 (Pt incontinent of bladder) Assessment/Plan Assessment and Plan Assess & Plan/Chief Complaint Assessment: MS flare Fall s/p UTI New onset AF w/RVR Left knee pain Thrombocytosis Plan: Ortho consult IRF protocol Home meds BM regimen 12/01/19: Very talkative Consult Dr. Nash for left knee pain Bowels moving well Sister at bedside today 12/02/19: Continue Naproxen for left knee pain Bowels moving well Right side is still very weak 12/03/19: Continue left knee treatment Chronic right side weakness Fall prevention education 12/04/19: Naproxen BID Knee pain management (1) Left knee pain (2) Atrial fibrillation (3) History of UTI (4) Fall (5) Multiple sclerosis GEORGI WATT DO Dec 04, 2019 06:53
[2019-12-04] MEDS: ASPIRIN 81 MG CHEW (CHILDREN'S ASA) PO SCH (09:09)
[2019-12-04] MEDS: NAPROXEN 250 MG (NAPROSYN) TABLET PO SCH ×2 (09:09→18:54)
[2019-12-04] MEDS: meTOproloL SUCCINATE 50 MG (TOPROL XL) TAB PO SCH (09:10)
[2019-12-04] MEDS: SENNA W/DOCUSATE (SENOKOT S) TABLET PO SCH ×2 (09:12→20:05)
[2019-12-04] MEDS: polyethylene glycoL POWDER 17 GM (MIRALAX) PACK PO SCH ×2 (09:12→19:39)
[2019-12-04] MEDS: DOCUSATE SODIUM 100 MG (COLACE) CAP PO SCH ×2 (09:12→20:05)
--- NOTE | 2019-12-04 09:29 | Physical Therapy Daily Note ---
PT Daily Note-Current Subjective Pt sitting up in bed upon arrival. Pt agrees to PT. Transfers SCALE: Activities may be completed with or without assistive devices. 6-Pzeiqannpm-urcdhul completes the activity by him/herself with no assistance from a helper. 5-Set-up or Clean-up Assistance-helper sets up or cleans up; patient completes activity. [place] assists only prior to or following the activity. 4-Supervision or Touching Assistance-helper provides verbal cues and/or touching/steadying and/or contact guard assistance as patient completes activity. Assistance may be provided throughout the activity or intermittently. 3-Partial/Moderate Assistance-helper does LESS THAN HALF the effort. [place] lifts, holds or supports trunk or limbs, but provides less than half the effort. 2-Substantial/Maximal Assistance-helper does MORE THAN HALF the effort. [place] lifts or holds trunk or limbs and provides more than half the effort. 8-Hsaxhwdac-pbfmqj does ALL the effort. Patient does none of the effort to complete the activity. Or, the assistance of 2 or more helpers is required for the patient to complete the activity. If activity was not attempted, code reason: 7-Patient Refused. 9-Not Applicable-not attempted and the patient did not perform the activity before the current illness, exacerbation or injury. 10-Not Attempted due to Environmental Limitations-(lack of equipment, weather restraints, etc.). 88-Not Attempted due to Medical Conditions or Safety Concerns. Lying to Sitting/Side of Bed(Q: 4 Sit to Stand (QC): 3 Chair/Unn-lm-Bemax Xfer(QC): 3 Weight Bearing Right Lower Extremity: Right Full Weight Bearing Left Lower Extremity: Left Full Weight Bearing Exercises Seated Therapy Exercises: Ankle pumps, Long arc quads, Hip flexion, Kicking activity, Hip abd/add, Glut set Seated Reps: 10 Treatments Pt transfers to EOB at CGA then sit to stand at Mod A. Pt steps to recliner at Min A. Pt completes Seated EX in recliner then rests at end of tx. Pt has all needs met. call light in hand. Assessment Current Status: Good Progress Pt is gaining strength and demonstrates improvement with transfers. PT Short Term Goals Short Term Goals Time Frame: Dec 07, 2019 Roll Left & Right: 4 Sit to lyin Lying to sitting on side of be: 3 Sit to stand: 2 Chair/uny-is-nlvfx transfer: 2 PT Correction Goals Correction Goals PT Correction Goals Time Frame: Dec 21, 2019 Roll Left & Right (QC): 6 Sit to Lying (QC): 4 Lying-Sitting on Side/Bed(QC): 4 Sit to Stand (QC): 3 Chair/Kgx-tn-Wsxqr Xfer(QC): 3 Toilet Transfer (QC): 3 Car Transfer (QC): 3 Does the Patient Walk: No and Walking Goal NOT indicated Walk 10 feet (QC): 88 Walk 50ft with 2 Turns (QC): 88 Walk 150 ft (QC): 88 Walking 10ft on Uneven Surface: 88 1 Step (curb) (QC): 88 4 Steps (QC): 88 12 Steps (QC): 88 Picking up an Object (QC): 88 Wheel 50 feet with 2 turns (QC: 6 Wheel 150 feet: 6 PT Plan Problem List Problem List: Activity Tolerance, Functional Strength Treatment/Plan Treatment Plan: Continue Plan of Care Treatment Plan: Bed Mobility, Education, Functional Activity [place], Functional Strength, Group Therapy, Gait, Safety, Therapeutic Exercise, Transfers Treatment Duration: Dec 21, 2019 Frequency: At least 5 of 7 days/Wk (IRF) Estimated Hrs Per Day: 1.5 hours per day Patient and/or Family Agrees t: Yes Safety Risks/Education Patient Education: Transfer Techniques, Correct Positioning, Safety Issues Teaching Recipient: Patient Teaching Methods: Discussion Response to Teaching: Verbalize Understanding Time/GCodes Time In: 840 Time Out: 900 Total Billed Treatment Time: 20 Total Billed Treatment 1, EX (20m) LUCIA MARIE PTA Dec 04, 2019 09:29
[2019-12-04 16:30] VITALS: BP 132/83
[2019-12-04] MEDS: ENOXAPARIN 40 MG/0.4 ML (LOVENOX) SYR SC SCH (20:05)
[2019-12-05 06:26] VITALS: BP 131/83
[2019-12-05 08:29] VITALS: BP 131/84
[2019-12-05] MEDS: ASPIRIN 81 MG CHEW (CHILDREN'S ASA) PO SCH (08:33)
[2019-12-05] MEDS: DOCUSATE SODIUM 100 MG (COLACE) CAP PO SCH ×2 (08:33→19:53)
[2019-12-05] MEDS: NAPROXEN 250 MG (NAPROSYN) TABLET PO SCH ×2 (08:33→19:33)
[2019-12-05] MEDS: polyethylene glycoL POWDER 17 GM (MIRALAX) PACK PO SCH ×2 (08:34→19:53)
[2019-12-05] MEDS: meTOproloL SUCCINATE 50 MG (TOPROL XL) TAB PO SCH (08:34)
[2019-12-05] MEDS: SENNA W/DOCUSATE (SENOKOT S) TABLET PO SCH ×2 (08:34→19:53)
--- NOTE | 2019-12-05 11:25 | PM&R Progress Note ---
Subjective HPI/CC On Admission Date Seen by Provider: Dec 05, 2019 Time Seen by Provider: 12:15 Subjective/Events-last exam 12/05/19: Left knee pain improved Naproxen helpful No falls Feels rested up 12/04/19: BM moved 3 days ago so he took laxatives Left knee pain improved 12/03/19: Left knee is better Chronic right-sided weakness will be managed with therapy Fall risk prevention 12/02/19: Naproxen was started yesterday by Dr. Nash Still continues to talk about the left knee pain Bowels are moving pretty well X-ray of the left knee shows no fracture Sister at the bedside today Very talkative Left knee X-ray and Dr. Nash consult for left knee pain Bowels are moving well Eating and drinking well Checked meds and labs Conferred with RN Reviewed therapy notes Review of Systems General: Fatigue, Malaise Musculoskeletal: leg pain Objective Exam Vital Signs Vital Signs Date Time Temp Pulse Resp B/P (MAP) Pulse Ox O2 Delivery O2 Flow Rate FiO2 12/05/19 17:57 35.3 69 20 130/89 (103) 96 Room Air Capillary Refill : Less Than 3 Seconds General Appearance: No Apparent Distress, WD/WN, Chronically ill HEENT: PERRL/EOMI, Normal ENT Inspection, Pharynx Normal Neck: Full Range of Motion, Normal Inspection, Non Tender, Supple, Carotid Bruit Respiratory: Chest Non Tender, Lungs Clear, Normal Breath Sounds, No Accessory Muscle Use, No Respiratory Distress Cardiovascular: Regular Rate, Rhythm, No Edema, No Gallop, No JVD, No Murmur, Normal Peripheral Pulses Gastrointestinal: Normal Bowel Sounds, No Organomegaly, No Pulsatile Mass, Non Tender, Soft Back: Normal Inspection, No CVA Tenderness, No Vertebral Tenderness Extremity: Normal Capillary Refill, Normal Inspection, Normal Range of Motion, Non Tender, No Calf Tenderness, No Pedal Edema Neurologic/Psychiatric: Alert, Oriented x3, No Motor/Sensory Deficits, Normal Mood/Affect, stress analyst II-XII Norm as Tested, Abnormal Gait, Motor Weakness (3/5 legs) Skin: Normal Color, Warm/Dry Lymphatic: No Adenopathy Results/Procedures Lab Patient resulted labs reviewed. FIM Transfers Therapy Code Descriptions/Definitions Functional [place] Measure: 0=Not Assessed/NA 4=Minimal Assistance 1=Total Assistance 5=Supervision or Setup 2=Maximal Assistance 6=Modified [place] 3=Moderate Assistance 7=Complete IndependenceSCALE: Activities may be completed with or without assistive devices. 8-Ldznbejrev-ogjgtik completes the activity by him/herself with no assistance from a helper. 5-Set-up or Clean-up Assistance-helper sets up or cleans up; patient completes activity. [place] assists only prior to or following the activity. 4-Supervision or Touching Assistance-helper provides verbal cues and/or touching/steadying and/or contact guard assistance as patient completes activity. Assistance may be provided throughout the activity or intermittently. 3-Partial/Moderate Assistance-helper does LESS THAN HALF the effort. [place] lifts, holds or supports trunk or limbs, but provides less than half the effort. 2-Substantial/Maximal Assistance-helper does MORE THAN HALF the effort. [place] lifts or holds trunk or limbs and provides more than half the effort. 8-Enedwdgtn-zlkiwx does ALL the effort. Patient does none of the effort to complete the activity. Or, the assistance of 2 or more helpers is required for the patient to complete the activity. If activity was not attempted, code reason: 7-Patient Refused. 9-Not Applicable-not attempted and the patient did not perform the activity before the current illness, exacerbation or injury. 10-Not Attempted due to Environmental Limitations-(lack of equipment, weather restraints, etc.). 88-Not Attempted due to Medical Conditions or Safety Concerns. Roll Left to Right (QC): 5 Sit to Lying (QC): 3 Sit to Stand (QC): 3 Chair/Atn-pj-Grreb Xfer(QC): 3 Car Transfer (QC): 1 Gait Training Does the Patient Walk?: No and Walking Goal IS indicated Distance: 2' Walk 10 feet (QC): 88 Walk 50 ft with 2 Turns(QC): 88 Walk 150 ft (QC): 88 Walking 10ft/uneven surface-QC: 88 Gait Persons Needed: 1 Gait Assistive Device: FWW Wheelchair Training Does the Pt Use a Wheelchair?: No Distance: 150'x2 Wheel 50 ft with 2 turns (QC): 5 Wheel 150 ft (QC): 5 Type of Wheelchair: Manual Stair Training 1 Step (curb) (QC): 88 4 Steps (QC): 88 12 Steps (QC): 88 Balance Picking up an Object (QC): 88 ADL-Treatment Eating (QC): 6 Oral Hygiene (QC): 6 Shower/Bathe Self (QC): 3 (Mod A) Upper Body Dressing (QC): 5 (s/u EOB) Lower Body Dressing (QC): 3 (Pt able to thread bilaterally with increased effort. Pt educated on AE use, denies use stating how he completes at home. Pt sit to stand from EOB with heightened bed and CGA. Pt's pants hiked with max A as pt unable to take hands from walker. ) On/Off Footwear (QC): 4 Toileting Hygiene (QC): 1 (Pt incontinent of bladder) Assessment/Plan Assessment and Plan Assess & Plan/Chief Complaint Assessment: MS flare Fall s/p UTI New onset AF w/RVR Left knee pain Thrombocytosis Plan: Ortho consult IRF protocol Home meds BM regimen 12/01/19: Very talkative Consult Dr. Nash for left knee pain Bowels moving well Sister at bedside today 12/02/19: Continue Naproxen for left knee pain Bowels moving well Right side is still very weak 12/03/19: Continue left knee treatment Chronic right side weakness Fall prevention education 12/04/19: Naproxen BID Knee pain management 12/05/19: Maintain left knee pain management Falls still increased risk (1) Left knee pain (2) Atrial fibrillation (3) History of UTI (4) Fall (5) Multiple sclerosis GEORGI WATT DO Dec 05, 2019 11:25
[2019-12-05 17:57] VITALS: BP 130/89
[2019-12-05] MEDS: ENOXAPARIN 40 MG/0.4 ML (LOVENOX) SYR SC SCH (20:03)
[2019-12-06 05:04] VITALS: BP 116/74
[2019-12-06 05:38] LABS: BASOPHILS % (AUTO) 0 % (0-10); EOSINOPHILS # (AUTO) 0.3 10^3/uL (0.0-0.3); EOSINOPHILS % (AUTO) 4 % (0-10); HEMATOCRIT 44 % (40-54); HEMOGLOBIN 14.2 G/DL (13.3-17.7); LYMPHOCYTES # (AUTO) 2.2 X 10^3 (1.0-4.0); LYMPHOCYTES % (AUTO) 33 % (12-44); MEAN CORPUSCULAR HEMOGLOBIN 30 PG (25-34); MEAN CORPUSCULAR HGB CONC 33 G/DL (32-36); MEAN CORPUSCULAR VOLUME 92 FL (80-99); MEAN PLATELET VOLUME 9.5 FL (7.4-10.4); MONOCYTES # (AUTO) 0.6 X 10^3 (0.0-1.0); MONOCYTES % (AUTO) 9 % (0-12); NEUTROPHILS # (AUTO) 3.4 X 10^3 (1.8-7.8); NEUTROPHILS % (AUTO) 53 % (42-75); PLATELET COUNT 621 10^3/uL (130-400); RED CELL DISTRIBUTION WIDTH 12.9 % (10.0-14.5); WHITE BLOOD COUNT 6.5 10^3/uL (4.3-11.0)
[2019-12-06 05:58] LABS: ALANINE AMINOTRANSFERASE 47 U/L (0-55); ALBUMIN 3.5 GM/DL (3.2-4.5); ALKALINE PHOSPHATASE 88 U/L (40-136); BILIRUBIN,TOTAL 0.2 MG/DL (0.1-1.0); BUN/CREATININE RATIO 19; CALCIUM 9.3 MG/DL (8.5-10.1); CARBON DIOXIDE 27 MMOL/L (21-32); CHLORIDE 106 MMOL/L (98-107); CREATININE SERUM 0.94 MG/DL (0.60-1.30); GFR ESTIMATED > 60; GLUCOSE 86 MG/DL (70-105); POTASSIUM 4.2 MMOL/L (3.6-5.0); SODIUM 141 MMOL/L (135-145); TOTAL PROTEIN 7.9 GM/DL (6.4-8.2)
[2019-12-06] MEDS: DOCUSATE SODIUM 100 MG (COLACE) CAP PO SCH ×2 (08:26→19:44)
[2019-12-06] MEDS: polyethylene glycoL POWDER 17 GM (MIRALAX) PACK PO SCH ×2 (08:27→19:45)
[2019-12-06] MEDS: SENNA W/DOCUSATE (SENOKOT S) TABLET PO SCH ×2 (08:27→19:45)
[2019-12-06] MEDS: meTOproloL SUCCINATE 50 MG (TOPROL XL) TAB PO SCH (08:33)
[2019-12-06] MEDS: NAPROXEN 250 MG (NAPROSYN) TABLET PO SCH ×2 (08:33→18:20)
[2019-12-06] MEDS: ASPIRIN 81 MG CHEW (CHILDREN'S ASA) PO SCH (08:33)
--- NOTE | 2019-12-06 08:49 | Occupational Ther Daily Note ---
OT Current Status-Daily Note Subjective Pt seen in bed this am. Pt alert/ oriented, readily agreeable to OT tx session. Pt desires to shave, nursing agrees. Pt seen in recliner, agrees to OT. Pt alert/ oriented. Mental Status/Objective Patient Orientation: Person, Place, Situation ADL-Treatment Therapy Code Descriptions/Definitions Functional [place] Measure: 0=Not Assessed/NA 4=Minimal Assistance 1=Total Assistance 5=Supervision or Setup 2=Maximal Assistance 6=Modified [place] 3=Moderate Assistance 7=Complete IndependenceSCALE: Activities may be completed with or without assistive devices. 2-Xuufkgqqyi-wadchfw completes the activity by him/herself with no assistance from a helper. 5-Set-up or Clean-up Assistance-helper sets up or cleans up; patient completes activity. [place] assists only prior to or following the activity. 4-Supervision or Touching Assistance-helper provides verbal cues and/or touching/steadying and/or contact guard assistance as patient completes activity. Assistance may be provided throughout the activity or intermittently. 3-Partial/Moderate Assistance-helper does LESS THAN HALF the effort. [place] lifts, holds or supports trunk or limbs, but provides less than half the effort. 2-Substantial/Maximal Assistance-helper does MORE THAN HALF the effort. [place] lifts or holds trunk or limbs and provides more than half the effort. 7-Ofqnqyxtb-gclgtw does ALL the effort. Patient does none of the effort to complete the activity. Or, the assistance of 2 or more helpers is required for the patient to complete the activity. If activity was not attempted, code reason: 7-Patient Refused. 9-Not Applicable-not attempted and the patient did not perform the activity before the current illness, exacerbation or injury. 10-Not Attempted due to Environmental Limitations-(lack of equipment, weather restraints, etc.). 88-Not Attempted due to Medical Conditions or Safety Concerns. Eating (QC): 6 Oral Hygiene (QC): 6 (completes at sink with IND in w/c. ) Shower/Bathe Self (QC): 4 (SBA-CGA all tasks) Upper Body Dressing (QC): 5 (s/u) Lower Body Dressing (QC): 3 (min A breif donning, CGA in stance to trap puller hips. ) On/Off Footwear: 6 (IND socks.) Toileting Hygiene (QC): 4 (CGA in stance. ) Other Treatment [id number]: Pt seen n bed. Pt agrees to OT, desiring shave. Pt sit to stand from bed with CGA, ambulates ~4 feet to w/c. Pt slowly lowers to chair with increased control. pt pushes self to sink and shaves/ brushes teeth. Wheels to chair, sit to stand with CGA and ambulates to chair. Sits with all needs met, call light in reach. [id number]: Pt completes sponge bath in recliner. Pt requires min cues for safety/ threading R prior to L. Pt completes sit to stands with CGA and sits with CGA and cues for slow. Pt transfers to w/c, completes w/c mob to therapy gym- completes AE training with bindery helper, picking items from floor with success and min cues. Pt returns to room and sits in recliner with CGA, all needs met, call light in reach. Education OT Patient Education: Correct positioning, Modified ADL techniques, Progress toward Goal/Update tx plan, Purpose of tx/functional activities, Transfer techniques Teaching Recipient: Patient Teaching Methods: Demonstration, Discussion Response to Teaching: Verbalize Understanding, Return Demonstration OT Short Term Goals Short Term Goals Toileting hygiene: 2 Lower body dressin OT [place] Blower Goals [place] Blower Goals Time Frame: Dec 14, 2019 Eating (QC): 6 Oral Hygiene (QC): 6 Toileting Hygiene (QC): 6 Shower/Bathe Self (QC): 6 Upper Body Dressing (QC): 6 Lower Body Dressing (QC): 6 On/Off Footwear (QC): 6 Additional Goals: 1-Demonstrate ADL Tasks, 2-Verbalize Understanding, 3- ImproveStrength/[place] 1=Demonstrate adherence to instructed precautions during ADL tasks. 2=Patient will verbalize/demonstrate understanding of assistive devices/ modifications for ADL. 3=Patient will improve strength/tolerance for activity to enable patient to perform ADL's. OT Education/Plan Problem List/Assessment Assessment: Decreased Activ Tolerance, Decreased UE Strength, Dependent Transfers, Impaired Funct Balance, Impaired I ADL's, Impaired Self-Care Skills Discharge Recommendations Plan/Recommendations: Continue POC Therapy Discharge Recommendati: Home & Family Treatment Plan/Plan of Care Treatment,Training & Education: Yes Patient would benefit from OT for education, treatment and training to promote independence in ADL's, mobility, safety and/or upper extremity function for ADL's. Plan of Care: ADL Retraining, Caregiver Training, Cognitive Retraining, Concurrent Therapy, Functional Mobility, Group Exercise/Act as Ind, UE Funct Exercise/Act, W/C Management Training Treatment Duration: Dec 14, 2019 Frequency: At least 5 of 7 days/Wk (IRF) Estimated Hrs Per Day: 1.5 hours per day Agreement: Yes Rehab Potential: Fair Time/GCodes Start Time: 08:30 (1100) Stop Time: 09:00 (1145) Total Time Billed (hr/min): 75 Billed Treatment Time [id number]: 1, ADL 2 ( 30) [id number]: 1, ADL 2, FA (45) MAYKEL LUCAS OTR Dec 06, 2019 08:49
--- NOTE | 2019-12-06 10:17 | Physical Therapy Daily Note ---
PT Daily Note-Current Subjective Pt. agrees to Rx. Feels he is better. "since my knee isnt swollen and doesnt hurt I can actually move around " Pain Location: No Pain Reported Mental Status Patient Orientation: Person, Place, Time, Situation Transfers SCALE: Activities may be completed with or without assistive devices. 7-Jzgwvkritx-jdpdwbh completes the activity by him/herself with no assistance from a helper. 5-Set-up or Clean-up Assistance-helper sets up or cleans up; patient completes activity. [place] assists only prior to or following the activity. 4-Supervision or Touching Assistance-helper provides verbal cues and/or touching/steadying and/or contact guard assistance as patient completes activity. Assistance may be provided throughout the activity or intermittently. 3-Partial/Moderate Assistance-helper does LESS THAN HALF the effort. [place] l ifts, holds or supports trunk or limbs, but provides less than half the effort. 2-Substantial/Maximal Assistance-helper does MORE THAN HALF the effort. [place] lifts or holds trunk or limbs and provides more than half the effort. 1-Awqwahuxr-szqxtl does ALL the effort. Patient does none of the effort to complete the activity. Or, the assistance of 2 or more helpers is required for t he patient to complete the activity. If activity was not attempted, code reason: 7-Patient Refused. 9-Not Applicable-not attempted and the patient did not perform the activity before the current illness, exacerbation or injury. 10-Not Attempted due to Environmental Limitations-(lack of equipment, weather restraints, etc.). 88-Not Attempted due to Medical Conditions or Safety Concerns. Roll Left & Right (QC): 6 Sit to Stand (QC): 4 Chair/Jbd-pj-Wtiqu Xfer(QC): 4 sit to stand multiple trials at [facility] with improved strength and mob Weight Bearing Right Lower Extremity: Right Full Weight Bearing Left Lower Extremity: Left Full Weight Bearing Gait Training Does the Patient Walk?: Yes Walk 10 feet (QC): 3 Gait Persons Needed: 1 Gait Assistive Device: Parallel Bars w/c f/u needed as pt. fatigues quickly and has unpredictable LOB /weakness at times., slow, decreased step length and heavy wt bearing on UEs. pt. ambulated 10 ft x 3 in // bars and 12 ft x 1 with FWW Wheelchair Training Does the Pt Use a Wheelchair?: Yes Wheel 50 ft with 2 turns (QC): 4 Type of Wheelchair: Manual instructed in brakes and turns to clear objects Exercises Seated Therapy Exercises: Ankle pumps, Sit to stand, Long arc quads, Hip flexion, Hip abd/add Seated Reps: 12 (assist for RLE) PT Short Term Goals Short Term Goals Time Frame: Dec 07, 2019 Roll Left & Right: 4 Sit to lyin Lying to sitting on side of be: 3 Sit to stand: 2 Chair/zrd-ji-mbgag transfer: 2 PT Grades 1 Thru 6 Visiting Teacher Goals Grades 1 Thru 6 Visiting Teacher Goals PT Halfway Goals Time Frame: Dec 21, 2019 Roll Left & Right (QC): 6 Sit to Lying (QC): 4 Lying-Sitting on Side/Bed(QC): 4 Sit to Stand (QC): 3 Chair/Nqa-tu-Hwdgm Xfer(QC): 3 Toilet Transfer (QC): 3 Car Transfer (QC): 3 Does the Patient Walk: No and Walking Goal NOT indicated Walk 10 feet (QC): 88 Walk 50ft with 2 Turns (QC): 88 Walk 150 ft (QC): 88 Walking 10ft on Uneven Surface: 88 1 Step (curb) (QC): 88 4 Steps (QC): 88 12 Steps (QC): 88 Picking up an Object (QC): 88 Wheel 50 feet with 2 turns (QC: 6 Wheel 150 feet: 6 PT Plan Treatment/Plan Treatment Plan: Continue Plan of Care Treatment Plan: Bed Mobility, Education, Functional Activity [place], Functional Strength, Group Therapy, Gait, Safety, Therapeutic Exercise, Transfers Treatment Duration: Dec 21, 2019 Frequency: At least 5 of 7 days/Wk (IRF) Estimated Hrs Per Day: 1.5 hours per day Patient and/or Family Agrees t: Yes Safety Risks/Education Patient Education: Gait Training, Transfer Techniques, Correct Positioning, W/C Management, Disease Process, Safety Issues Teaching Recipient: Patient Teaching Methods: Demonstration, Discussion Response to Teaching: Verbalize Understanding, Return Demonstration, Reinforcement Needed Time/GCodes Time In: 930 Time Out: 1015 Total Billed Treatment Time: 45 Total Billed Treatment 1,GT20m,EX15m,FA10m FOSTER INFANTE PUBLICITY CONSULTANT Dec 06, 2019 10:17
--- NOTE | 2019-12-06 10:27 | Progress Note - Ortho ---
Progress Note Subjective Date of Exam 12/06/19 Chief Complaint Pain and swelling left knee secondary to aggravation of osteoarthritis HPI/Events since last exam Mr. Gonzalez is doing better with regards to his left knee. He states swelling is down. He still has some pain but pain is lessening is able to move it better. He is participating in physical therapy with less knee symptoms. He continues on the Naprosyn 500 mg twice a day with food and has had no problems taking the Naprosyn. He's noticed no bruising. No GI complaints. Review of Systems Reviewed and no additions or changes Allergies: Coded Allergies: Penicillins (Verified Allergy, Unknown, rash, 11/30/19) Home Meds Reported Medications Cyclobenzaprine HCl (Cyclobenzaprine HCl) 10 Mg Tablet, 10 MG PO BID PRN for MUSCLE SPASMS, TAB 12/03/19 Acetaminophen (Tylenol Extra Strength) 500 Mg Tablet, 500 MG PO Q6H PRN for PAIN-MILD (1-4), TAB 11/30/19 Objective Exam Constitutional: [] HEENT: [] Neck: [] Cardiovascular: [] Respiratory: [] Gastrointestinal: [] Genitourinary: [] Skin: [] Back/Spine: [] Extremities: [Effusion still present in the left knee but significantly less than initial evaluation. Full extension to 100 of flexion with some discomfort with increasing flexion. No instability. No joint line pain. Continued patellofemoral pain] Neurologic: [] Psychiatric: [] Hematologic/lymphatic/immunologic: [] Vital Signs Vital Signs Date Time Temp Pulse Resp B/P (MAP) Pulse Ox O2 Delivery O2 Flow Rate FiO2 12/06/19 08:40 Room Air 12/06/19 05:04 35.9 73 20 116/74 (88) 95 Room Air 12/05/19 20:42 Room Air 12/05/19 17:57 35.3 69 20 130/89 (103) 96 Room Air I & O 12/06/19 07:00 Intake Total 2400 ml Output Total 2350 ml Balance 50 ml Lab Results Laboratory Tests 12/06/19 05:08: White Blood Count 6.5, Red Blood Count 4.74, Hemoglobin 14.2, Hematocrit 44, Mean Corpuscular Volume 92, Mean Corpuscular Hemoglobin 30, Mean Corpuscular Hemoglobin Concent 33, Red Cell Distribution Width 12.9, Platelet Count 621H, Mean Platelet Volume 9.5, Neutrophils (%) (Auto) 53, Lymphocytes (%) (Auto) 33, Monocytes (%) (Auto) 9, Eosinophils (%) (Auto) 4, Basophils (%) (Auto) 0, Neutrophils # (Auto) 3.4, Lymphocytes # (Auto) 2.2, Monocytes # (Auto) 0.6, Eosinophils # (Auto) 0.3, Basophils # (Auto) 0.0, Sodium Level 141, Potassium Level 4.2, Chloride Level 106, Carbon Dioxide Level 27, Anion Gap 8, Blood Urea Nitrogen 18, Creatinine 0.94, Estimat Glomerular Filtration Rate > 60, BUN/Creatinine Ratio 19, Glucose Level 86, Calcium Level 9.3, Corrected Calcium 9.7, Total Bilirubin 0.2, Aspartate Amino Transf (AST/SGOT) 25, Alanine Aminotransferase (ALT/SGPT) 47, Alkaline Phosphatase 88, Total Protein 7.9, Albumin 3.5 Assessment and Plan Assessment Improvement on Naprosyn 500 mg twice daily with food Problem List Unchanged Plan Continue with Naprosyn 500 mg twice a day with food. If his symptoms improve si gnificantly or resolved completely he can discontinue the Naprosyn and use as needed. He is from [place] and if he continues with problems he certainly could follow-up with one of the orthopedist in the [id number]. I be happy to see me in the office if he wants to continue under my care here in [place]. Final Diagonsis Osteoarthritis left knee Level of the visit: Level 3 Clinical Quality Measures DVT/VTE Risk/Contraindication: Risk Factor Score Per Nursin RFS Level Per Nursing on Admit: 3=High SEA GAR MD Dec 06, 2019 10:27
--- NOTE | 2019-12-06 10:59 | Speech Therapy Daily Note ---
Speech Daily Progress Note Subjective Date Seen by Provider: Dec 06, 2019 Time Seen by Provider: 00:30 Patient alert and sitting up in his recliner. Patient participates well with redirection due to continuing to talk during session. Objective Patient completed a series of memory tasks for recall of groups of words/items presented orally with 75% given moderate cues. Assessment Assessment Current Status: Good Progress Treatment Plan Continue Plan of Care Speech Short Term Goals Short Term Goals Short Term Goals 1) The patient will complete memory tasks related to his daily needs at 90% or greater with minimal cues. 2) The patient will complete safety awareness tasks related to his daily needs at 90% or greater with minimal cues. 3) The patient will complete problem solving tasks related to his daily needs at 90% or greater with minimal cues. Speech Shipping Hand Goals Fdc Goals Patient will improve cognitive-communication necessary for safety and daily living tasks with minimal assist. Speech-Plan Patient/Family Goals Patient/Family Goals: Patient plans on returning home with family support upon discharge. Treatment Plan Speech Therapy Treatment Plan: Continue Plan of Care Treatment Duration: Dec 10, 2019 Frequency: 4 times per week (Patient will receive skilled ST 4-5x per week) Estimated Hrs Per Day: .5 hour per day Rehab Potential: Fair Barriers to Learning: Patient's mild cognitive deficits Pt/Family Agrees to Plan: Yes Safety Risks/Education Teaching Recipient: Patient Teaching Methods: Demonstration, Discussion Response to Teaching: Verbalize Understanding, Return Demonstration Education Topics Provided: Continued safety within his room Time Speech Therapy Time In: 09:00 Speech Therapy Time Out: 09:30 Total Billed Time: 930 Billed Treatment Time 1, ROYAL Lowry Dec 06, 2019 10:59
--- NOTE | 2019-12-06 11:15 | Progress Note ---
KALYANI THACKER MED STUDENT 12/06/19 1115: Progress Note 54 yo M presents post-hospital stay for rehabilitation. pt history includes multiple sclerosis Therapy progression pt states that therapy has been going very well pt states that pain and swelling in L knee are decreasing, making it easier during therapy sessions Goals pt stated that he wants to be "sure" on his feet pt previously used walker. pt stated he wanted to just be dependent on the walker and not on other people pt stated that he would like to be able to volunteer and go to [place] without anyone else's help MELISSA JUAN DO 12/06/192035: Supervisory-Addendum Brief Verification & Attestation Participated in pt care: history, MDM, physical Personally performed: exam, history, MDM, supervision of care Care discussed with: Medical Student Procedures: n/a Results interpretation: Verified all documentation Verification and Attestation of Medical Student E/M Service A medical student performed and documented this service in my presence. I reviewed and verified all information documented by the medical student and made modifications to such information, when appropriate. I personally performed the physical exam and medical decision making. Melissa Juan, Dec 06, 2019,20:35 KALYANI THACKER MED STUDENT Dec 06, 2019 11:15 MELISSA JUAN DO Dec 06, 2019 20:36
--- NOTE | 2019-12-06 11:35 | PM&R Progress Note ---
Subjective HPI/CC On Admission Date Seen by Provider: Dec 06, 2019 Time Seen by Provider: 10:00 Subjective/Events-last exam 12/06/19: Labs remain stable, Platelets at 621,000 Left knee better Standing with only one assist now Overall doing a lot better 12/05/19: Left knee pain improved Naproxen helpful No falls Feels rested up 12/04/19: BM moved 3 days ago so he took laxatives Left knee pain improved 12/03/19: Left knee is better Chronic right-sided weakness will be managed with therapy Fall risk prevention 12/02/19: Naproxen was started yesterday by Dr. Nash Still continues to talk about the left knee pain Bowels are moving pretty well X-ray of the left knee shows no fracture Sister at the bedside today Very talkative Left knee X-ray and Dr. Nash consult for left knee pain Bowels are moving well Eating and drinking well Checked meds and labs Conferred with RN Reviewed therapy notes Review of Systems General: Fatigue, Malaise Neurological: Weakness Objective Exam Vital Signs Vital Signs Date Time Temp Pulse Resp B/P (MAP) Pulse Ox O2 Delivery O2 Flow Rate FiO2 12/06/19 18:00 36.8 84 21 121/73 (89) 97 Room Air Capillary Refill : Less Than 3 Seconds General Appearance: No Apparent Distress, WD/WN, Chronically ill HEENT: PERRL/EOMI, Normal ENT Inspection, Pharynx Normal Neck: Full Range of Motion, Normal Inspection, Non Tender, Supple, Carotid Bruit Respiratory: Chest Non Tender, Lungs Clear, Normal Breath Sounds, No Accessory Muscle Use, No Respiratory Distress Cardiovascular: Regular Rate, Rhythm, No Edema, No Gallop, No JVD, No Murmur, Normal Peripheral Pulses Gastrointestinal: Normal Bowel Sounds, No Organomegaly, No Pulsatile Mass, Non Tender, Soft Back: Normal Inspection, No CVA Tenderness, No Vertebral Tenderness Extremity: Normal Capillary Refill, Normal Inspection, Normal Range of Motion, Non Tender, No Calf Tenderness, No Pedal Edema Neurologic/Psychiatric: Alert, Oriented x3, No Motor/Sensory Deficits, Normal Mood/Affect, community association manager II-XII Norm as Tested, Abnormal Gait, Motor Weakness (3/5 legs) Skin: Normal Color, Warm/Dry Lymphatic: No Adenopathy Results/Procedures Lab Laboratory Tests 12/06/19 05:08 Patient resulted labs reviewed. FIM Transfers Therapy Code Descriptions/Definitions Functional [place] Measure: 0=Not Assessed/NA 4=Minimal Assistance 1=Total Assistance 5=Supervision or Setup 2=Maximal Assistance 6=Modified [place] 3=Moderate Assistance 7=Complete IndependenceSCALE: Activities may be completed with or without assistive devices. 9-Cuyhwvemuh-ounnuxd completes the activity by him/herself with no assistance from a helper. 5-Set-up or Clean-up Assistance-helper sets up or cleans up; patient completes activity. [place] assists only prior to or following the activity. 4-Supervision or Touching Assistance-helper provides verbal cues and/or touching/steadying and/or contact guard assistance as patient completes activity. Assistance may be provided throughout the activity or intermittently. 3-Partial/Moderate Assistance-helper does LESS THAN HALF the effort. [place] lifts, holds or supports trunk or limbs, but provides less than half the effort. 2-Substantial/Maximal Assistance-helper does MORE THAN HALF the effort. [place] lifts or holds trunk or limbs and provides more than half the effort. 6-Acprlwbsq-hcveep does ALL the effort. Patient does none of the effort to complete the activity. Or, the assistance of 2 or more helpers is required for the patient to complete the activity. If activity was not attempted, code reason: 7-Patient Refused. 9-Not Applicable-not attempted and the patient did not perform the activity before the current illness, exacerbation or injury. 10-Not Attempted due to Environmental Limitations-(lack of equipment, weather restraints, etc.). 88-Not Attempted due to Medical Conditions or Safety Concerns. Roll Left to Right (QC): 6 Sit to Lying (QC): 3 Sit to Stand (QC): 4 Chair/Wnn-xc-Fjwrp Xfer(QC): 4 Car Transfer (QC): 1 Gait Training Does the Patient Walk?: Yes Distance: 2' Walk 10 feet (QC): 3 Walk 50 ft with 2 Turns(QC): 88 Walk 150 ft (QC): 88 Walking 10ft/uneven surface-QC: 88 Gait Persons Needed: 1 Gait Assistive Device: Parallel Bars Wheelchair Training Does the Pt Use a Wheelchair?: Yes Distance: 150'x2 Wheel 50 ft with 2 turns (QC): 4 Wheel 150 ft (QC): 5 Type of Wheelchair: Manual Stair Training 1 Step (curb) (QC): 88 4 Steps (QC): 88 12 Steps (QC): 88 Balance Picking up an Object (QC): 88 ADL-Treatment Eating (QC): 6 Oral Hygiene (QC): 6 (completes at sink with IND in w/c. ) Shower/Bathe Self (QC): 3 (Mod A) Upper Body Dressing (QC): 5 (s/u EOB) Lower Body Dressing (QC): 3 (Pt able to thread bilaterally with increased effort. Pt educated on AE use, denies use stating how he completes at home. Pt sit to stand from EOB with heightened bed and CGA. Pt's pants hiked with max A as pt unable to take hands from walker. ) On/Off Footwear (QC): 4 Toileting Hygiene (QC): 1 (Pt incontinent of bladder) Assessment/Plan Assessment and Plan Assess & Plan/Chief Complaint Assessment: MS flare Fall s/p UTI New onset AF w/RVR Left knee pain Thrombocytosis Plan: Ortho consult IRF protocol Home meds BM regimen 12/01/19: Very talkative Consult Dr. Nash for left knee pain Bowels moving well Sister at bedside today 12/02/19: Continue Naproxen for left knee pain Bowels moving well Right side is still very weak 12/03/19: Continue left knee treatment Chronic right side weakness Fall prevention education 12/04/19: Naproxen BID Knee pain management 12/05/19: Maintain left knee pain management Falls still increased risk 12/06/19: Continue intensive therapy Naproxen for left knee pain Appreciate Dr. Nash (1) Left knee pain (2) Atrial fibrillation (3) History of UTI (4) Fall (5) Multiple sclerosis GEORGI WATT DO Dec 06, 2019 11:35
--- NOTE | 2019-12-06 14:35 | Physical Therapy Daily Note ---
PT Daily Note-Current Subjective Pt. up in recliner states he is willing to work but feels like he has just had BM in his pants. Agrees to sit to stands, TRFs and short bout of gait as well as clean and change clothing Pain Location: No Pain Reported Mental Status Patient Orientation: Person, Place, Time, Situation Transfers SCALE: Activities may be completed with or without assistive devices. 0-Wklbnjjhgg-uatfsyv completes the activity by him/herself with no assistance from a helper. 5-Set-up or Clean-up Assistance-helper sets up or cleans up; patient completes activity. [place] assists only prior to or following the activity. 4-Supervision or Touching Assistance-helper provides verbal cues and/or touching/steadying and/or contact guard assistance as patient completes activity. Assistance may be provided throughout the activity or intermittently. 3-Partial/Moderate Assistance-helper does LESS THAN HALF the effort. [place] lifts, holds or supports trunk or limbs, but provides less than half the effort. 2-Substantial/Maximal Assistance-helper does MORE THAN HALF the effort. [place] lifts or holds trunk or limbs and provides more than half the effort. 1-Tzcrbyeax-luxyps does ALL the effort. Patient does none of the effort to compl ete the activity. Or, the assistance of 2 or more helpers is required for the patient to complete the activity. If activity was not attempted, code reason: 7-Patient Refused. 9-Not Applicable-not attempted and the patient did not perform the activity before the current illness, exacerbation or injury. 10-Not Attempted due to Environmental Limitations-(lack of equipment, weather restraints, etc.). 88-Not Attempted due to Medical Conditions or Safety Concerns. Roll Left & Right (QC): 6 Sit to Lying (QC): 6 Lying to Sitting/Side of Bed(Q: 6 Sit to Stand (QC): 4 Chair/Nfn-zs-Uqljx Xfer(QC): 3 Weight Bearing Right Lower Extremity: Right Full Weight Bearing Left Lower Extremity: Left Full Weight Bearing Gait Training Does the Patient Walk?: Yes Gait Assistive Device: FWW 5 ft chair to bed min assist FWW with a turn and approach to bed, side steps to right etc all slow, poor foot clearance etc Exercises Seated Therapy Exercises: Sit to stand, Long arc quads, Hip flexion, Hip abd/add Seated Reps: 10 Treatments pt. with BM in briefs, pants and on linen in chair, several sit to stands, for doffing donning and cleaning required, pt. did assist somewhat for pants up down and some cleansing in front. short gait bout to bed from recliner . indep sit to sup, seated LE exercises Assessment much improved sit to stand as well as gait and stance stability, also getting LEs in out bed SBA PT Short Term Goals Short Term Goals Time Frame: Dec 07, 2019 Roll Left & Right: 4 Sit to lyin Lying to sitting on side of be: 3 Sit to stand: 2 Chair/qox-ub-mmnon transfer: 2 PT Long-Term Goals Long-Term Goals PT Security Installation Technician Goals Time Frame: Dec 21, 2019 Roll Left & Right (QC): 6 Sit to Lying (QC): 4 Lying-Sitting on Side/Bed(QC): 4 Sit to Stand (QC): 3 Chair/Web-wu-Czbcj Xfer(QC): 3 Toilet Transfer (QC): 3 Car Transfer (QC): 3 Does the Patient Walk: No and Walking Goal NOT indicated Walk 10 feet (QC): 88 Walk 50ft with 2 Turns (QC): 88 Walk 150 ft (QC): 88 Walking 10ft on Uneven Surface: 88 1 Step (curb) (QC): 88 4 Steps (QC): 88 12 Steps (QC): 88 Picking up an Object (QC): 88 Wheel 50 feet with 2 turns (QC: 6 Wheel 150 feet: 6 PT Plan Treatment/Plan Treatment Plan: Continue Plan of Care Treatment Plan: Bed Mobility, Education, Functional Activity [place], Functional Strength, Group Therapy, Gait, Safety, Therapeutic Exercise, Transfers Treatment Duration: Dec 21, 2019 Frequency: At least 5 of 7 days/Wk (IRF) Estimated Hrs Per Day: 1.5 hours per day Patient and/or Family Agrees t: Yes Safety Risks/Education Patient Education: Transfer Techniques, Correct Positioning, Disease Process, Safety Issues Teaching Recipient: Patient Teaching Methods: Demonstration, Discussion Response to Teaching: Verbalize Understanding, Return Demonstration, Reinforcement Needed Time/GCodes Time In: 1400 Time Out: 1430 Total Billed Treatment Time: 30 Total Billed Treatment 1,FA30m FOSTER INFANTE DEAN OF EDUCATION Dec 06, 2019 14:35
[2019-12-06 18:00] VITALS: BP 121/73
[2019-12-06] MEDS: ENOXAPARIN 40 MG/0.4 ML (LOVENOX) SYR SC SCH (20:18)
[2019-12-07 05:36] VITALS: BP 119/80
[2019-12-07] MEDS: NAPROXEN 250 MG (NAPROSYN) TABLET PO SCH ×2 (08:21→18:34)
[2019-12-07] MEDS: SENNA W/DOCUSATE (SENOKOT S) TABLET PO SCH ×2 (08:21→20:23)
[2019-12-07] MEDS: meTOproloL SUCCINATE 50 MG (TOPROL XL) TAB PO SCH (08:22)
[2019-12-07] MEDS: ASPIRIN 81 MG CHEW (CHILDREN'S ASA) PO SCH (08:22)
[2019-12-07] MEDS: DOCUSATE SODIUM 100 MG (COLACE) CAP PO SCH ×2 (08:22→20:22)
[2019-12-07] MEDS: polyethylene glycoL POWDER 17 GM (MIRALAX) PACK PO SCH ×2 (09:00→20:22)
--- NOTE | 2019-12-07 09:16 | Occupational Ther Daily Note ---
OT Current Status-Daily Note Subjective Pt seen in bed. Pt states 2/10 pain in low back and 1/10 pain in L knee. Pt agrees to OT tx session, desiring shower. Pt in recliner upon OT entry, pt agrees to therapy. Mental Status/Objective Patient Orientation: Person, Place, Situation ADL-Treatment Therapy Code Descriptions/Definitions Functional [place] Measure: 0=Not Assessed/NA 4=Minimal Assistance 1=Total Assistance 5=Supervision or Setup 2=Maximal Assistance 6=Modified [place] 3=Moderate Assistance 7=Complete IndependenceSCALE: Activities may be completed with or without assistive devices. 1-Wbmpueoiwl-ysfjcuf completes the activity by him/herself with no assistance from a helper. 5-Set-up or Clean-up Assistance-helper sets up or cleans up; patient completes activity. [place] assists only prior to or following the activity. 4-Supervision or Touching Assistance-helper provides verbal cues and/or touching/steadying and/or contact guard assistance as patient completes activity. Assistance may be provided throughout the activity or intermittently. 3-Partial/Moderate Assistance-helper does LESS THAN HALF the effort. [place] lifts, holds or supports trunk or limbs, but provides less than half the effort. 2-Substantial/Maximal Assistance-helper does MORE THAN HALF the effort. [place] lifts or holds trunk or limbs and provides more than half the effort. 1-Ynipfrysx-uglowh does ALL the effort. Patient does none of the effort to complete the activity. Or, the assistance of 2 or more helpers is required for the patient to complete the activity. If activity was not attempted, code reason: 7-Patient Refused. 9-Not Applicable-not attempted and the patient did not perform the activity before the current illness, exacerbation or injury. 10-Not Attempted due to Environmental Limitations-(lack of equipment, weather restraints, etc.). 88-Not Attempted due to Medical Conditions or Safety Concerns. Eating (QC): 6 Oral Hygiene (QC): 6 (places w/c in front of sink and completes with IND.) Bathing Location: L Arm, R Arm, L Upper Leg, R Upper Leg, L Lower Leg (including foot), R Lower Leg (including foot), Chest, Abdomen, Perineal Area Shower/Bathe Self (QC): 3 (min A in stance for bottom hyginee) Upper Body Dressing (QC): 5 (s/u) Lower Body Dressing (QC): 4 (CGA during stance, CGA while reaching. Pt very verbal during dressing, especially while attempting to raise LLE. Pt states no pain, but strenuous activity. Pt is trained on surveillance supervisor and sock aide use this session.) On/Off Footwear: 3 (min A to thread LLE over toes as pt has strenuous grunts during donning. Pt states no pain, but strenuous activity. Pt is trained on surveillance supervisor and sock aide use this session) Toileting Hygiene (QC): 3 (min A in stnace.) Toilet Transfer (QC): 4 (CGA during shower transfer. Cues for hand placement.) Other Treatment Pt seen in bed, bed mob with SBA. Pt sit to stand with CGA and ambulates ~4 feet to w/c. Pt pushes self with min A for placement of w/c, transfers into shower with walker use and cues for placement. Pt requires assist with bottom only during shower. With LB dressing, pt requires multiple rest breaks, pt expresses strain during LLE dressing, OT to train pt on AE for LLE. Pt utilizes w/c with SBA to therapy gym, compeltes 10 min mod resistance arm bike and 5 min max resistance arm bike for increased functional endurance/ activity training. Pt returns to room, educated on sock aide use and pt return demonstrates to LLE with minimal cues. Pt left in recliner with all needs met, call light in reach. Pt completes AE training in recliner chair with education/ demonstration of surveillance supervisor, dressing stick, and sock aide. Pt dons pants 3x and doffs with increased IND (s/u, min cues) and completes sock doffing with dressing stick/ donning with sock aide bilaterally with less c/o "strenuous activity." Pt left in recliner with all needs met. Education OT Patient Education: Correct positioning, Exercise program, Home exercise program, Modified ADL techniques, Purpose of tx/functional activities, Transfer techniques, Use of adapted equipment, W/C management Teaching Recipient: Patient Teaching Methods: Demonstration, Discussion Response to Teaching: Verbalize Understanding, Return Demonstration, Reinforcement Needed OT Short Term Goals Short Term Goals Toileting hygiene: 2 Lower body dressin OT Ios Software Engineer Goals [employer] Software Engineer Goals Time Frame: Dec 14, 2019 Eating (QC): 6 Oral Hygiene (QC): 6 Toileting Hygiene (QC): 6 Shower/Bathe Self (QC): 6 Upper Body Dressing (QC): 6 Lower Body Dressing (QC): 6 On/Off Footwear (QC): 6 Additional Goals: 1-Demonstrate ADL Tasks, 2-Verbalize Understanding, 3- ImproveStrength/[place] 1=Demonstrate adherence to instructed precautions during ADL tasks. 2=Patient will verbalize/demonstrate understanding of assistive devices/modifications for ADL. 3=Patient will improve strength/tolerance for activity to enable patient to perform ADL's. OT Education/Plan Problem List/Assessment Assessment: Decreased Activ Tolerance, Decreased UE Strength, Dependent Transfers, Edema, Impaired Funct Balance, Impaired I ADL's, Impaired Self-Care Skills Discharge Recommendations Plan/Recommendations: Continue POC Therapy Discharge Recommendati: Intermittent Supervision, Home & Family Equpiment Recommendations-D/C: Concrete Truck Driver, Sock Aide, Dressing Stick Treatment Plan/Plan of Care Treatment,Training & Education: Yes Patient would benefit from OT for education, treatment and training to promote independence in ADL's, mobility, safety and/or upper extremity function for ADL's. Plan of Care: ADL Retraining, Caregiver Training, Cognitive Retraining, Concurrent Therapy, Functional Mobility, Group Exercise/Act as Ind, UE Funct Exercise/Act, W/C Management Training Treatment Duration: Dec 14, 2019 Frequency: At least 5 of 7 days/Wk (IRF) Estimated Hrs Per Day: 1.5 hours per day Agreement: Yes Rehab Potential: Fair Time/GCodes Start Time: 08:00 (1115) Stop Time: 09:15 (1130) Total Time Billed (hr/min): 90 Billed Treatment Time 1, ADL 4 (60), EX (15)= (75) 1, ADL (15) MAYKEL LUCAS OTR Dec 07, 2019 09:16
--- NOTE | 2019-12-07 10:43 | PM&R Progress Note ---
Subjective HPI/CC On Admission Date Seen by Provider: Dec 07, 2019 Time Seen by Provider: 09:00 Subjective/Events-last exam 12/07/19: Continue Naproxen since it is helping his left knee pain Overall feels like he is gaining strength Bowels are moving well 12/06/19: Labs remain stable, Platelets at 621,000 Left knee better Standing with only one assist now Overall doing a lot better 12/05/19: Left knee pain improved Naproxen helpful No falls Feels rested up 12/04/19: BM moved 3 days ago so he took laxatives Left knee pain improved 12/03/19: Left knee is better Chronic right-sided weakness will be managed with therapy Fall risk prevention 12/02/19: Naproxen was started yesterday by Dr. Nash Still continues to talk about the left knee pain Bowels are moving pretty well X-ray of the left knee shows no fracture Sister at the bedside today Very talkative Left knee X-ray and Dr. Nash consult for left knee pain Bowels are moving well Eating and drinking well Checked meds and labs Conferred with RN Reviewed therapy notes Review of Systems General: Fatigue, Malaise Neurological: Weakness Objective Exam Vital Signs Vital Signs Date Time Temp Pulse Resp B/P (MAP) Pulse Ox O2 Delivery O2 Flow Rate FiO2 12/07/19 16:32 36.4 68 16 119/84 (96) 96 Room Air Capillary Refill : Less Than 3 Seconds General Appearance: No Apparent Distress, WD/WN, Chronically ill HEENT: PERRL/EOMI, Normal ENT Inspection, Pharynx Normal Neck: Full Range of Motion, Normal Inspection, Non Tender, Supple, Carotid Bruit Respiratory: Chest Non Tender, Lungs Clear, Normal Breath Sounds, No Accessory Muscle Use, No Respiratory Distress Cardiovascular: Regular Rate, Rhythm, No Edema, No Gallop, No JVD, No Murmur, Normal Peripheral Pulses Gastrointestinal: Normal Bowel Sounds, No Organomegaly, No Pulsatile Mass, Non Tender, Soft Back: Normal Inspection, No CVA Tenderness, No Vertebral Tenderness Extremity: Normal Capillary Refill, Normal Inspection, Normal Range of Motion, Non Tender, No Calf Tenderness, No Pedal Edema Neurologic/Psychiatric: Alert, Oriented x3, No Motor/Sensory Deficits, Normal Mood/Affect, clay temperer II-XII Norm as Tested, Abnormal Gait, Motor Weakness (3/5 legs) Skin: Normal Color, Warm/Dry Lymphatic: No Adenopathy Results/Procedures Lab Patient resulted labs reviewed. FIM Transfers Therapy Code Descriptions/Definitions Functional [place] Measure: 0=Not Assessed/NA 4=Minimal Assistance 1=Total Assistance 5=Supervision or Setup 2=Maximal Assistance 6=Modified [place] 3=Moderate Assistance 7=Complete IndependenceSCALE: Activities may be completed with or without assistive devices. 0-Fgxelxkcsk-mhwaxsc completes the activity by him/herself with no assistance from a helper. 5-Set-up or Clean-up Assistance-helper sets up or cleans up; patient completes activity. [place] assists only prior to or following the activity. 4-Supervision or Touching Assistance-helper provides verbal cues and/or touching/steadying and/or contact guard assistance as patient completes activity. Assistance may be provided throughout the activity or intermittently. 3-Partial/Moderate Assistance-helper does LESS THAN HALF the effort. [place] lifts, holds or supports trunk or limbs, but provides less than half the effort. 2-Substantial/Maximal Assistance-helper does MORE THAN HALF the effort. [place] lifts or holds trunk or limbs and provides more than half the effort. 8-Yygyqlhkw-jyzooa does ALL the effort. Patient does none of the effort to complete the activity. Or, the assistance of 2 or more helpers is required for the patient to complete the activity. If activity was not attempted, code reason: 7-Patient Refused. 9-Not Applicable-not attempted and the patient did not perform the activity bef ore the current illness, exacerbation or injury. 10-Not Attempted due to Environmental Limitations-(lack of equipment, weather r estraints, etc.). 88-Not Attempted due to Medical Conditions or Safety Concerns. Roll Left to Right (QC): 6 Sit to Lying (QC): 6 Sit to Stand (QC): 4 Chair/Uhb-dc-Fsfal Xfer(QC): 3 Car Transfer (QC): 1 Gait Training Does the Patient Walk?: Yes Distance: 2' Walk 10 feet (QC): 3 Walk 50 ft with 2 Turns(QC): 88 Walk 150 ft (QC): 88 Walking 10ft/uneven surface-QC: 88 Gait Persons Needed: 1 Gait Assistive Device: FWW Wheelchair Training Does the Pt Use a Wheelchair?: Yes Distance: 150'x2 Wheel 50 ft with 2 turns (QC): 4 Wheel 150 ft (QC): 5 Type of Wheelchair: Manual Stair Training 1 Step (curb) (QC): 88 4 Steps (QC): 88 12 Steps (QC): 88 Balance Picking up an Object (QC): 88 ADL-Treatment Eating (QC): 6 Oral Hygiene (QC): 6 (places w/c in front of sink and completes with IND.) Bathing Location: L Arm, R Arm, L Upper Leg, R Upper Leg, L Lower Leg (including foot), R Lower Leg (including foot), Chest, Abdomen, Perineal Area Shower/Bathe Self (QC): 3 (min A in stance for bottom hyginee) Upper Body Dressing (QC): 5 (s/u) Lower Body Dressing (QC): 4 (CGA during stance, CGA while reaching. Pt very verbal during dressing, especially while attempting to raise LLE. Pt states no pain, but strenuous activity. Pt is trained on assistant county engineer and sock aide use this session.) On/Off Footwear (QC): 3 (min A to thread LLE over toes as pt has strenuous gru nts during donning. Pt states no pain, but strenuous activity. Pt is trained on assistant county engineer and sock aide use this session) Toileting Hygiene (QC): 3 (min A in stnace.) Toilet Transfer (QC): 4 (CGA during shower transfer. Cues for hand placement.) Assessment/Plan Assessment and Plan Assess & Plan/Chief Complaint Assessment: MS flare Fall s/p UTI New onset AF w/RVR Left knee pain Thrombocytosis Plan: Ortho consult IRF protocol Home meds BM regimen 12/01/19: Very talkative Consult Dr. Nash for left knee pain Bowels moving well Sister at bedside today 12/02/19: Continue Naproxen for left knee pain Bowels moving well Right side is still very weak 12/03/19: Continue left knee treatment Chronic right side weakness Fall prevention education 12/04/19: Naproxen BID Knee pain management 12/05/19: Maintain left knee pain management Falls still increased risk 12/06/19: Continue intensive therapy Naproxen for left knee pain Appreciate Dr. Nash 12/07/19: Continue Naproxen Bowel regimen good Discharge soon (1) Left knee pain (2) Atrial fibrillation (3) History of UTI (4) Fall (5) Multiple sclerosis GEORGI WATT DO Dec 07, 2019 10:43
--- NOTE | 2019-12-07 12:29 | Physical Therapy Daily Note ---
PT Daily Note-Current Subjective Pt sitting in recliner upon arrival. Pt agrees to PT. Pain Location: No Pain Reported Mental Status Patient Orientation: Person, Place, Situation Transfers SCALE: Activities may be completed with or without assistive devices. 1-Ahjysslfsw-foabras completes the activity by him/herself with no assistance from a helper. 5-Set-up or Clean-up Assistance-helper sets up or cleans up; patient completes activity. Nettie assists only prior to or following the activity. 4-Supervision or Touching Assistance-helper provides verbal cues and/or touching/steadying and/or contact guard assistance as patient completes activity. Assistance may be provided throughout the activity or intermittently. 3-Partial/Moderate Assistance-helper does LESS THAN HALF the effort. Nettie lifts, holds or supports trunk or limbs, but provides less than half the effort. 2-Substantial/Maximal Assistance-helper does MORE THAN HALF the effort. Nettie lifts or holds trunk or limbs and provides more than half the effort. 7-Rmguqkefh-qyqedb does ALL the effort. Patient does none of the effort to complete the activity. Or, the assistance of 2 or more helpers is required for the patient to complete the activity. If activity was not attempted, code reason: 7-Patient Refused. 9-Not Applicable-not attempted and the patient did not perform the activity before the current illness, exacerbation or injury. 10-Not Attempted due to Environmental Limitations-(lack of equipment, weather restraints, etc.). 88-Not Attempted due to Medical Conditions or Safety Concerns. Sit to Stand (QC): 5 Weight Bearing Right Lower Extremity: Right Full Weight Bearing Left Lower Extremity: Left Full Weight Bearing Gait Training Does the Patient Walk?: Yes Distance: 100' Walk 10 feet (QC): 4 Walk 50 ft with 2 Turns(QC): 4 Gait Persons Needed: 1 Gait Assistive Device: FWW Pt has difficulty DF so pt's R foot drags or scoots across floor when amb. Wheelchair Training Does the Pt Use a Wheelchair?: Yes Wheel 50 ft with 2 turns (QC): 5 Wheel 150 ft (QC): 5 Type of Wheelchair: Manual Exercises Seated Therapy Exercises: Ankle pumps (AAROM for R foot), Long arc quads, Hip flexion, Kicking activity, Hip abd/add, Glut set Seated Reps: 20 Treatments Pt transfers to standing and amb. in hallway. Pt completes Seated EX in [facility] with assistance on RLE. Pt uses NuStep for 10m at WL 3. Pt propels WCH back to room at end of tx and transfers back to recliner with all needs met. Pt has call light in hand. Assessment Current Status: Good Progress Pt is improving with ambulation and distance traveled. PT Short Term Goals Short Term Goals Time Frame: Dec 07, 2019 Roll Left & Right: 4 Sit to lyin Lying to sitting on side of be: 3 Sit to stand: 2 Chair/ize-bs-ecdkx transfer: 2 PT Market Investigator Goals Intermediate Goals PT Market Investigator Goals Time Frame: Dec 21, 2019 Roll Left & Right (QC): 6 Sit to Lying (QC): 4 Lying-Sitting on Side/Bed(QC): 4 Sit to Stand (QC): 3 Chair/Igb-bh-Dpmjs Xfer(QC): 3 Toilet Transfer (QC): 3 Car Transfer (QC): 3 Does the Patient Walk: No and Walking Goal NOT indicated Walk 10 feet (QC): 88 Walk 50ft with 2 Turns (QC): 88 Walk 150 ft (QC): 88 Walking 10ft on Uneven Surface: 88 1 Step (curb) (QC): 88 4 Steps (QC): 88 12 Steps (QC): 88 Picking up an Object (QC): 88 Wheel 50 feet with 2 turns (QC: 6 Wheel 150 feet: 6 PT Plan Problem List Problem List: Activity Tolerance, Functional Strength, Safety, Gait Treatment/Plan Treatment Plan: Continue Plan of Care Treatment Plan: Bed Mobility, Education, Functional Activity [place], Functional Strength, Group Therapy, Gait, Safety, Therapeutic Exercise, Transfers Treatment Duration: Dec 21, 2019 Frequency: At least 5 of 7 days/Wk (IRF) Estimated Hrs Per Day: 1.5 hours per day Patient and/or Family Agrees t: Yes Safety Risks/Education Patient Education: Gait Training, Transfer Techniques, Correct Positioning, Safety Issues Teaching Recipient: Patient Teaching Methods: Discussion Response to Teaching: Verbalize Understanding Time/GCodes Time In: 930 Time Out: 1015 Total Billed Treatment Time: 45 Total Billed Treatment 1, GT (20m) & EX x2 (25m) LUCIA MARIE PTA Dec 07, 2019 12:28
--- NOTE | 2019-12-07 13:28 | NUR ---
"RD ASSESSMENT PMHx: MS; CA(prostate); afib; chronic constipation; PT INTERACTION: Pt was awake and pleasant during nutrition follow-up. Pt states he has been eating well since last assessment. Note avg PO intake 100% x4d, per chart review. Pt states some issues with constipation since last assessment. Note last BM was 12/05, and pt currently on bowel regimen of colace BID; senna BID; and miralax BID, per chart review. ABNORMAL NUTRITION-RELATED LAB VALUES Labs WNL at this time Est. kcal needs: 1975 kcal | 15 kcal/kg Est. Pro needs: 106 g Pro | 0.8 g Pro/kg PES STATEMENT: Given current appetite and PO intake, no nutrition diagnosis at this time (NO-1.1) INTERVENTION: Continue with current diet order of Regular diet. Will continue to follow and reassess as pt needs, intake, and status change. MONITOR/EVALUATE: PO Intake; Plan of Care; Hydration Status; Weight Status; Lab Values Nicole Macedo, MS, RD, LD"
--- NOTE | 2019-12-07 14:30 | Physical Therapy Daily Note ---
PT Daily Note-Current Subjective Patient agrees to PT. No c/o. Mental Status Patient Orientation: Normal For Age Transfers SCALE: Activities may be completed with or without assistive devices. 1-Mjngzwxygq-trixwuv completes the activity by him/herself with no assistance from a helper. 5-Set-up or Clean-up Assistance-helper sets up or cleans up; patient completes activity. [place] assists only prior to or following the activity. 4-Supervision or Touching Assistance-helper provides verbal cues and/or touching/steadying and/or contact guard assistance as patient completes activity. Assistance may be provided throughout the activity or intermittently. 3-Partial/Moderate Assistance-helper does LESS THAN HALF the effort. [place] lifts, holds or supports trunk or limbs, but provides less than half the effort. 2-Substantial/Maximal Assistance-helper does MORE THAN HALF the effort. [place] lifts or holds trunk or limbs and provides more than half the effort. 1-Bxdnfbwgq-hyqwaz does ALL the effort. Patient does none of the effort to c omplete the activity. Or, the assistance of 2 or more helpers is required for the patient to complete the activity. If activity was not attempted, code reason: 7-Patient Refused. 9-Not Applicable-not attempted and the patient did not perform the activity before the current illness, exacerbation or injury. 10-Not Attempted due to Environmental Limitations-(lack of equipment, weather restraints, etc.). 88-Not Attempted due to Medical Conditions or Safety Concerns. Sit to Stand (QC): 4 sit to stand x 4 sets Weight Bearing Right Lower Extremity: Right Full Weight Bearing Left Lower Extremity: Left Full Weight Bearing Gait Training Does the Patient Walk?: Yes Distance: 175' x 2, 150' x 1, 100' x 1 Walk 10 feet (QC): 4 Walk 50 ft with 2 Turns(QC): 4 Walk 150 ft (QC): 4 Gait Assistive Device: FWW right LE slight lag/functional gait sequence/right hip hike to clear foot Exercises NuStep Minutes: 10 NuStep Workload: 4 (to improve endurance and functional strength) Assessment Patient does require recovery periods due to fatigue. Highly motivated with progress. Increase activity as tolerated by patient. PT Short Term Goals Short Term Goals Time Frame: Dec 07, 2019 Roll Left & Right: 4 Sit to lyin Lying to sitting on side of be: 3 Sit to stand: 2 Chair/nmx-az-jzzjc transfer: 2 PT Snf Goals Snf Goals PT Senior Telecommunications Consultant Goals Time Frame: Dec 21, 2019 Roll Left & Right (QC): 6 Sit to Lying (QC): 4 Lying-Sitting on Side/Bed(QC): 4 Sit to Stand (QC): 3 Chair/Qbb-wo-Bultf Xfer(QC): 3 Toilet Transfer (QC): 3 Car Transfer (QC): 3 Does the Patient Walk: No and Walking Goal NOT indicated Walk 10 feet (QC): 88 Walk 50ft with 2 Turns (QC): 88 Walk 150 ft (QC): 88 Walking 10ft on Uneven Surface: 88 1 Step (curb) (QC): 88 4 Steps (QC): 88 12 Steps (QC): 88 Picking up an Object (QC): 88 Wheel 50 feet with 2 turns (QC: 6 Wheel 150 feet: 6 PT Plan Treatment/Plan Treatment Plan: Continue Plan of Care Treatment Plan: Bed Mobility, Education, Functional Activity [place], Functional Strength, Group Therapy, Gait, Safety, Therapeutic Exercise, Transfers Treatment Duration: Dec 21, 2019 Frequency: At least 5 of 7 days/Wk (IRF) Estimated Hrs Per Day: 1.5 hours per day Patient and/or Family Agrees t: Yes Time/GCodes Time In: 1340 Time Out: 1425 Total Billed Treatment Time: 45 Total Billed Treatment 1 visit GT x 2 35 min EX 10 min LOU DOUGLAS PT Dec 07, 2019 14:30
[2019-12-07 16:32] VITALS: BP 119/84
[2019-12-07] MEDS: ENOXAPARIN 40 MG/0.4 ML (LOVENOX) SYR SC SCH (21:09)
--- NOTE | 2019-12-09 08:32 | PM&R Progress Note ---
Subjective HPI/CC On Admission Date Seen by Provider: Dec 09, 2019 Time Seen by Provider: 08:45 Subjective/Events-last exam 12/09/19: No major issues No significant clinical status changes Left knee much improved with the Naproxen Overall feels like he is progressing nicely 12/08/19: Naproxen really helping the left knee pain Walked back and forth to the gym and really making some progress Loose stools will hold laxatives Check meds and labs 12/07/19: Continue Naproxen since it is helping his left knee pain Overall feels like he is gaining strength Bowels are moving well 12/06/19: Labs remain stable, Platelets at 621,000 Left knee better Standing with only one assist now Overall doing a lot better 12/05/19: Left knee pain improved Naproxen helpful No falls Feels rested up 12/04/19: BM moved 3 days ago so he took laxatives Left knee pain improved 12/03/19: Left knee is better Chronic right-sided weakness will be managed with therapy Fall risk prevention 12/02/19: Naproxen was started yesterday by Dr. Nash Still continues to talk about the left knee pain Bowels are moving pretty well X-ray of the left knee shows no fracture Sister at the bedside today Very talkative Left knee X-ray and Dr. Nash consult for left knee pain Bowels are moving well Eating and drinking well Checked meds and labs Conferred with RN Reviewed therapy notes Review of Systems General: Fatigue, Malaise Neurological: Weakness Objective Exam Vital Signs Vital Signs Date Time Temp Pulse Resp B/P (MAP) Pulse Ox O2 Delivery O2 Flow Rate FiO2 12/09/19 20:30 Room Air 12/09/19 16:45 36.2 82 16 116/68 (84) 93 Capillary Refill : Less Than 3 Seconds General Appearance: No Apparent Distress, WD/WN, Chronically ill HEENT: PERRL/EOMI, Normal ENT Inspection, Pharynx Normal Neck: Full Range of Motion, Normal Inspection, Non Tender, Supple, Carotid Bruit Respiratory: Chest Non Tender, Lungs Clear, Normal Breath Sounds, No Accessory Muscle Use, No Respiratory Distress Cardiovascular: Regular Rate, Rhythm, No Edema, No Gallop, No JVD, No Murmur, Normal Peripheral Pulses Gastrointestinal: Normal Bowel Sounds, No Organomegaly, No Pulsatile Mass, Non Tender, Soft Back: Normal Inspection, No CVA Tenderness, No Vertebral Tenderness Extremity: Normal Capillary Refill, Normal Inspection, Normal Range of Motion, Non Tender, No Calf Tenderness, No Pedal Edema Neurologic/Psychiatric: Alert, Oriented x3, No Motor/Sensory Deficits, Normal Mood/Affect, strategic marketing manager II-XII Norm as Tested, Abnormal Gait, Motor Weakness (3/5 legs) Skin: Normal Color, Warm/Dry Lymphatic: No Adenopathy Results/Procedures Lab Patient resulted labs reviewed. FIM Transfers Therapy Code Descriptions/Definitions Functional [place] Measure: 0=Not Assessed/NA 4=Minimal Assistance 1=Total Assistance 5=Supervision or Setup 2=Maximal Assistance 6=Modified [place] 3=Moderate Assistance 7=Complete IndependenceSCALE: Activities may be completed with or without assistive devices. 4-Tbozvvyfnx-lxyyxxm completes the activity by him/herself with no assistance from a helper. 5-Set-up or Clean-up Assistance-helper sets up or cleans up; patient completes activity. [place] assists only prior to or following the activity. 4-Supervision or Touching Assistance-helper provides verbal cues and/or touching/steadying and/or contact guard assistance as patient completes activity. Assistance may be provided throughout the activity or intermittently. 3-Partial/Moderate Assistance-helper does LESS THAN HALF the effort. [place] lifts, holds or supports trunk or limbs, but provides less than half the effort. 2-Substantial/Maximal Assistance-helper does MORE THAN HALF the effort. [place] lifts or holds trunk or limbs and provides more than half the effort. 5-Xhvlkctzh-sxzjkt does ALL the effort. Patient does none of the effort to complete the activity. Or, the assistance of 2 or more helpers is required for the patient to complete the activity. If activity was not attempted, code reason: 7-Patient Refused. 9-Not Applicable-not attempted and the patient did not perform the activity before the current illness, exacerbation or injury. 10-Not Attempted due to Environmental Limitations-(lack of equipment, weather restraints, etc.). 88-Not Attempted due to Medical Conditions or Safety Concerns. Roll Left to Right (QC): 6 Sit to Lying (QC): 6 Sit to Stand (QC): 4 Chair/Dmm-vn-Nxfhn Xfer(QC): 3 Car Transfer (QC): 1 Gait Training Does the Patient Walk?: Yes Distance: 175' x 2, 150' x 1, 100' x 1 Walk 10 feet (QC): 4 Walk 50 ft with 2 Turns(QC): 4 Walk 150 ft (QC): 4 Walking 10ft/uneven surface-QC: 88 Gait Persons Needed: 1 Gait Assistive Device: FWW Wheelchair Training Does the Pt Use a Wheelchair?: Yes Distance: 150'x2 Wheel 50 ft with 2 turns (QC): 5 Wheel 150 ft (QC): 5 Type of Wheelchair: Manual Stair Training 1 Step (curb) (QC): 88 4 Steps (QC): 88 12 Steps (QC): 88 Balance Picking up an Object (QC): 88 ADL-Treatment Eating (QC): 6 Oral Hygiene (QC): 6 (places w/c in front of sink and completes with IND.) Bathing Location: L Arm, R Arm, L Upper Leg, R Upper Leg, L Lower Leg (including foot), R Lower Leg (including foot), Chest, Abdomen, Perineal Area Shower/Bathe Self (QC): 3 (min A in stance for bottom hyginee) Upper Body Dressing (QC): 5 (s/u) Lower Body Dressing (QC): 4 (CGA during stance, CGA while reaching. Pt very verbal during dressing, especially while attempting to raise LLE. Pt states no pain, but strenuous activity. Pt is trained on perinatal director and sock aide use this session.) On/Off Footwear (QC): 3 (min A to thread LLE over toes as pt has strenuous grunts during donning. Pt states no pain, but strenuous activity. Pt is trained on perinatal director and sock aide use this session) Toileting Hygiene (QC): 3 (min A in stnace.) Toilet Transfer (QC): 4 (CGA during shower transfer. Cues for hand placement.) Assessment/Plan Assessment and Plan Assess & Plan/Chief Complaint Assessment: MS flare Fall s/p UTI New onset AF w/RVR Left knee pain Thrombocytosis Plan: Ortho consult IRF protocol Home meds BM regimen 12/01/19: Very talkative Consult Dr. Nash for left knee pain Bowels moving well Sister at bedside today 12/02/19: Continue Naproxen for left knee pain Bowels moving well Right side is still very weak 12/03/19: Continue left knee treatment Chronic right side weakness Fall prevention education 12/04/19: Naproxen BID Knee pain management 12/05/19: Maintain left knee pain management Falls still increased risk 12/06/19: Continue intensive therapy Naproxen for left knee pain Appreciate Dr. Nash 12/07/19: Continue Naproxen Bowel regimen good Discharge soon 12/08/19: Dramatic improvement Increase aggressive therapy with walking and fall prevention 12/09/19: Pain meds doing well BM regimen (1) Left knee pain (2) Atrial fibrillation (3) History of UTI (4) Fall (5) Multiple sclerosis GEORGI WATT DO Dec 09, 2019 08:32
--- NOTE | 2019-12-09 08:32 | PM&R Progress Note ---
Subjective HPI/CC On Admission Date Seen by Provider: Dec 08, 2019 Time Seen by Provider: 08:45 Subjective/Events-last exam 12/08/19: Naproxen really helping the left knee pain Walked back and forth to the gym and really making some progress Loose stools will hold laxatives Check meds and labs 12/07/19: Continue Naproxen since it is helping his left knee pain Overall feels like he is gaining strength Bowels are moving well 12/06/19: Labs remain stable, Platelets at 621,000 Left knee better Standing with only one assist now Overall doing a lot better 12/05/19: Left knee pain improved Naproxen helpful No falls Feels rested up 12/04/19: BM moved 3 days ago so he took laxatives Left knee pain improved 12/03/19: Left knee is better Chronic right-sided weakness will be managed with therapy Fall risk prevention 12/02/19: Naproxen was started yesterday by Dr. Nash Still continues to talk about the left knee pain Bowels are moving pretty well X-ray of the left knee shows no fracture Sister at the bedside today Very talkative Left knee X-ray and Dr. Nash consult for left knee pain Bowels are moving well Eating and drinking well Checked meds and labs Conferred with RN Reviewed therapy notes Review of Systems General: Fatigue, Malaise Musculoskeletal: leg pain Neurological: Weakness Objective Exam Vital Signs Vital Signs Date Time Temp Pulse Resp B/P (MAP) Pulse Ox O2 Delivery O2 Flow Rate FiO2 12/07/19 20:30 Room Air 12/07/19 16:32 36.4 68 16 119/84 (96) 96 Capillary Refill : Less Than 3 Seconds General Appearance: No Apparent Distress, WD/WN, Chronically ill HEENT: PERRL/EOMI, Normal ENT Inspection, Pharynx Normal Neck: Full Range of Motion, Normal Inspection, Non Tender, Supple, Carotid Bruit Respiratory: Chest Non Tender, Lungs Clear, Normal Breath Sounds, No Accessory Muscle Use, No Respiratory Distress Cardiovascular: Regular Rate, Rhythm, No Edema, No Gallop, No JVD, No Murmur, Normal Peripheral Pulses Gastrointestinal: Normal Bowel Sounds, No Organomegaly, No Pulsatile Mass, Non Tender, Soft Back: Normal Inspection, No CVA Tenderness, No Vertebral Tenderness Extremity: Normal Capillary Refill, Normal Inspection, Normal Range of Motion, Non Tender, No Calf Tenderness, No Pedal Edema Neurologic/Psychiatric: Alert, Oriented x3, No Motor/Sensory Deficits, Normal Mood/Affect, gmat instructor II-XII Norm as Tested, Abnormal Gait, Motor Weakness (3/5 legs) Skin: Normal Color, Warm/Dry Lymphatic: No Adenopathy Results/Procedures Lab Patient resulted labs reviewed. FIM Transfers Therapy Code Descriptions/Definitions Functional [place] Measure: 0=Not Assessed/NA 4=Minimal Assistance 1=Total Assistance 5=Supervision or Setup 2=Maximal Assistance 6=Modified [place] 3=Moderate Assistance 7=Complete IndependenceSCALE: Activities may be completed with or without assistive devices. 6-Gzjqstrcgv-jomfbqr completes the activity by him/herself with no assistance from a helper. 5-Set-up or Clean-up Assistance-helper sets up or cleans up; patient completes activity. [place] assists only prior to or following the activity. 4-Supervision or Touching Assistance-helper provides verbal cues and/or touching/steadying and/or contact guard assistance as patient completes activity. Assistance may be provided throughout the activity or intermittently. 3-Partial/Moderate Assistance-helper does LESS THAN HALF the effort. [place] lifts, holds or supports trunk or limbs, but provides less than half the effort. 2-Substantial/Maximal Assistance-helper does MORE THAN HALF the effort. [place] lifts or holds trunk or limbs and provides more than half the effort. 0-Nabburtxb-ltftha does ALL the effort. Patient does none of the effort to complete the activity. Or, the assistance of 2 or more helpers is required for the patient to complete the activity. If activity was not attempted, code reason: 7-Patient Refused. 9-Not Applicable-not attempted and the patient did not perform the activity before the current illness, exacerbation or injury. 10-Not Attempted due to Environmental Limitations-(lack of equipment, weather restraints, etc.). 88-Not Attempted due to Medical Conditions or Safety Concerns. Roll Left to Right (QC): 6 Sit to Lying (QC): 6 Sit to Stand (QC): 4 Chair/Eoo-cn-Blkoc Xfer(QC): 3 Car Transfer (QC): 1 Gait Training Does the Patient Walk?: Yes Distance: 175' x 2, 150' x 1, 100' x 1 Walk 10 feet (QC): 4 Walk 50 ft with 2 Turns(QC): 4 Walk 150 ft (QC): 4 Walking 10ft/uneven surface-QC: 88 Gait Persons Needed: 1 Gait Assistive Device: FWW Wheelchair Training Does the Pt Use a Wheelchair?: Yes Distance: 150'x2 Wheel 50 ft with 2 turns (QC): 5 Wheel 150 ft (QC): 5 Type of Wheelchair: Manual Stair Training 1 Step (curb) (QC): 88 4 Steps (QC): 88 12 Steps (QC): 88 Balance Picking up an Object (QC): 88 ADL-Treatment Eating (QC): 6 Oral Hygiene (QC): 6 (places w/c in front of sink and completes with IND.) Bathing Location: L Arm, R Arm, L Upper Leg, R Upper Leg, L Lower Leg (including foot), R Lower Leg (including foot), Chest, Abdomen, Perineal Area Shower/Bathe Self (QC): 3 (min A in stance for bottom hyginee) Upper Body Dressing (QC): 5 (s/u) Lower Body Dressing (QC): 4 (CGA during stance, CGA while reaching. Pt very verbal during dressing, especially while attempting to raise LLE. Pt states no pain, but strenuous activity. Pt is trained on software technical lead and sock aide use this session.) On/Off Footwear (QC): 3 (min A to thread LLE over toes as pt has strenuous grunts during donning. Pt states no pain, but strenuous activity. Pt is trained on software technical lead and sock aide use this session) Toileting Hygiene (QC): 3 (min A in stnace.) Toilet Transfer (QC): 4 (CGA during shower transfer. Cues for hand placement.) Assessment/Plan Assessment and Plan Assess & Plan/Chief Complaint Assessment: MS flare Fall s/p UTI New onset AF w/RVR Left knee pain Thrombocytosis Plan: Ortho consult IRF protocol Home meds BM regimen 12/01/19: Very talkative Consult Dr. Nash for left knee pain Bowels moving well Sister at bedside today 12/02/19: Continue Naproxen for left knee pain Bowels moving well Right side is still very weak 12/03/19: Continue left knee treatment Chronic right side weakness Fall prevention education 12/04/19: Naproxen BID Knee pain management 12/05/19: Maintain left knee pain management Falls still increased risk 12/06/19: Continue intensive therapy Naproxen for left knee pain Appreciate Dr. Nash 12/07/19: Continue Naproxen Bowel regimen good Discharge soon 12/08/19: Dramatic improvement Increase aggressive therapy with walking and fall prevention (1) Left knee pain (2) Atrial fibrillation (3) History of UTI (4) Fall (5) Multiple sclerosis GEORGI WATT DO Dec 09, 2019 08:32
--- NOTE | 2019-12-09 09:48 | Occupational Ther Daily Note ---
OT Current Status-Daily Note Subjective Pt seen in bed this am. Agrees to shower. Pt states minimal pain in B knees this am, states may be due to not ambulating as much as home environment. Pt seen in recliner, pt states 1/10 pain in B knees and 2/10 in low back. Pt agreeable to OT tx session. Mental Status/Objective Patient Orientation: Person, Place, Situation ADL-Treatment Therapy Code Descriptions/Definitions Functional [place] Measure: 0=Not Assessed/NA 4=Minimal Assistance 1=Total Assistance 5=Supervision or Setup 2=Maximal Assistance 6=Modified [place] 3=Moderate Assistance 7=Complete IndependenceSCALE: Activities may be completed with or without assistive devices. 1-Icqcyfvzjy-ngjkhxy completes the activity by him/herself with no assistance from a helper. 5-Set-up or Clean-up Assistance-helper sets up or cleans up; patient completes activity. [place] assists only prior to or following the activity. 4-Supervision or Touching Assistance-helper provides verbal cues and/or touching/steadying and/or contact guard assistance as patient completes activity. Assistance may be provided throughout the activity or intermittently. 3-Partial/Moderate Assistance-helper does LESS THAN HALF the effort. [place] lifts, holds or supports trunk or limbs, but provides less than half the effort. 2-Substantial/Maximal Assistance-helper does MORE THAN HALF the effort. [place] lifts or holds trunk or limbs and provides more than half the effort. 0-Vqzgrjduq-gqwspk does ALL the effort. Patient does none of the effort to complete the activity. Or, the assistance of 2 or more helpers is required for the patient to complete the activity. If activity was not attempted, code reason: 7-Patient Refused. 9-Not Applicable-not attempted and the patient did not perform the activity before the current illness, exacerbation or injury. 10-Not Attempted due to Environmental Limitations-(lack of equipment, weather restraints, etc.). 88-Not Attempted due to Medical Conditions or Safety Concerns. Eating (QC): 6 Oral Hygiene (QC): 6 Bathing Location: L Arm, R Arm, L Upper Leg, R Upper Leg, L Lower Leg (including foot), R Lower Leg (including foot), Chest, Abdomen, Buttocks, Perineal Area Shower/Bathe Self (QC): 4 (SBA for shower in stance. SUP other showering task s.) Upper Body Dressing (QC): 6 (gathers and dons) Lower Body Dressing (QC): 4 (CGA during task in stance.) On/Off Footwear: 5 (s/u- sock aide handed to pt.) Toileting Hygiene (QC): 4 (SBA- pt has minimal blood on towel. Pt's bottom assessed for wound without finding. ointment and augustina lotion applied- pt states has been scratching R posterior thigh. Pt's nurse notified.) Toilet Transfer (QC): 4 (CGA) Other Treatment Pt agrees to shower. SUP for bed mob. Pt uses bed rails, states none at home. Pt is encouraged to begin bed mob without use of AD. Pt sit to stand and ambulates to shower with CGA. Pt completes with SUP-SBA. pt dresses in shower with increased IND, use of grab bars in stance. Oral hygiene in w/c with IND. Pt pushes self to gym with IND, completes standing/ fine motor task at tabletop with cues for leg/ hand positioning. Pt states needed break after ~4 min standing. Pt states increased fatigue during stance, agrees to sit during fine motor/ reaching/ cognitive task- completes with success with minimal cues for thinking ahead. Good attention to task. Pt returns to room, SBA for transfer from w/c to recliner. All needs met, call light in reach. Pt sit to stand from recliner with 2WW and transfers to w/c. Pt propels self to therapy gym, completing 10 min mod resist arm bike to increase fx activity tolerance and UE strength with cues for purpose. No break throughout 10 min. Pt returns to room, sits in recliner with SBA, denies needs, call light in reach. Education OT Patient Education: Correct positioning, Energy conservation, Modified ADL techniques, Purpose of tx/functional activities, Safety issues, Transfer techniques, Use of adapted equipment Teaching Recipient: Patient Teaching Methods: Demonstration, Discussion Response to Teaching: Verbalize Understanding, Return Demonstration, Reinforcement Needed OT Short Term Goals Short Term Goals Toileting hygiene: 2 Lower body dressin OT Captain Room Service Goals Half-Way Goals Time Frame: Dec 14, 2019 Eating (QC): 6 Oral Hygiene (QC): 6 Toileting Hygiene (QC): 6 Shower/Bathe Self (QC): 6 Upper Body Dressing (QC): 6 Lower Body Dressing (QC): 6 On/Off Footwear (QC): 6 Additional Goals: 1-Demonstrate ADL Tasks, 2-Verbalize Understanding, 3- ImproveStrength/[place] 1=Demonstrate adherence to instructed precautions during ADL tasks. 2=Patient will verbalize/demonstrate understanding of assistive devices/modifications for ADL. 3=Patient will improve strength/tolerance for activity to enable patient to perform ADL's. OT Education/Plan Problem List/Assessment Assessment: Decreased Activ Tolerance, Decreased UE Strength, Dependent Transfers, Impaired Funct Balance, Impaired I ADL's, Impaired Self-Care Skills Discharge Recommendations Plan/Recommendations: Continue POC Therapy Discharge Recommendati: Home & Family Treatment Plan/Plan of Care Treatment,Training & Education: Yes Patient would benefit from OT for education, treatment and training to promote independence in ADL's, mobility, safety and/or upper extremity function for ADL's. Plan of Care: ADL Retraining, Caregiver Training, Cognitive Retraining, Concurrent Therapy, Functional Mobility, Group Exercise/Act as Ind, UE Funct Exercise/Act, W/C Management Training Treatment Duration: Dec 14, 2019 Frequency: At least 5 of 7 days/Wk (IRF) Estimated Hrs Per Day: 1.5 hours per day Agreement: Yes Rehab Potential: Fair Time/GCodes Start Time: 08:00 (1145) Stop Time: 09:00 (1200) Total Time Billed (hr/min): 75 Billed Treatment Time 1, ADL 2, FA 2 (60) 1, EX (15) Total: 75 MAYKEL LUCAS OTR Dec 09, 2019 09:47
--- NOTE | 2019-12-09 11:01 | Physical Therapy Daily Note ---
PT Daily Note-Current Subjective Pt sitting in recliner upon arrival. Pt agrees to PT. Pain Location: No Pain Reported Mental Status Patient Orientation: Person, Place, Situation Transfers SCALE: Activities may be completed with or without assistive devices. 1-Aijwcuvtqb-qxdjkbi completes the activity by him/herself with no assistance from a helper. 5-Set-up or Clean-up Assistance-helper sets up or cleans up; patient completes activity. [place] assists only prior to or following the activity. 4-Supervision or Touching Assistance-helper provides verbal cues and/or touching/steadying and/or contact guard assistance as patient completes activity. Assistance may be provided throughout the activity or intermittently. 3-Partial/Moderate Assistance-helper does LESS THAN HALF the effort. [place] lifts, holds or supports trunk or limbs, but provides less than half the effort. 2-Substantial/Maximal Assistance-helper does MORE THAN HALF the effort. [place] lifts or holds trunk or limbs and provides more than half the effort. 0-Dynesydvq-hueblk does ALL the effort. Patient does none of the effort to complete the activity. Or, the assistance of 2 or more helpers is required for the patient to complete the activity. If activity was not attempted, code reason: 7-Patient Refused. 9-Not Applicable-not attempted and the patient did not perform the activity before the current illness, exacerbation or injury. 10-Not Attempted due to Environmental Limitations-(lack of equipment, weather restraints, etc.). 88-Not Attempted due to Medical Conditions or Safety Concerns. Sit to Stand (QC): 4 Weight Bearing Right Lower Extremity: Right Full Weight Bearing Left Lower Extremity: Left Full Weight Bearing Gait Training Does the Patient Walk?: Yes Distance: 100' Walk 10 feet (QC): 4 Walk 50 ft with 2 Turns(QC): 4 Gait Persons Needed: 1 Wheelchair Training Does the Pt Use a Wheelchair?: Yes Wheel 50 ft with 2 turns (QC): 5 Wheel 150 ft (QC): 5 Type of Wheelchair: Manual Exercises Seated Therapy Exercises: Ankle pumps, Long arc quads, Hip flexion, Kicking a ctivity, Hip abd/add Seated Reps: 20 NuStep Minutes: 15 NuStep Workload: 3 Treatments Pt transfers to standing and amb. in hallway. Pt uses NuStep then completes Seated EX with AAROM for R LE. Pt propels self in hallway and back to room. Pt transfers to recliner to rest with all needs met, call light in hand. Assessment Current Status: Good Progress Pt is gaining strength but still remains weak on R LE. PT Short Term Goals Short Term Goals Time Frame: Dec 07, 2019 Roll Left & Right: 4 Sit to lyin Lying to sitting on side of be: 3 Sit to stand: 2 Chair/vqb-tx-ikcfj transfer: 2 PT Shell Grader Goals Shell Grader Goals PT Alf Goals Time Frame: Dec 21, 2019 Roll Left & Right (QC): 6 Sit to Lying (QC): 4 Lying-Sitting on Side/Bed(QC): 4 Sit to Stand (QC): 3 Chair/Atn-rc-Ddiwo Xfer(QC): 3 Toilet Transfer (QC): 3 Car Transfer (QC): 3 Does the Patient Walk: No and Walking Goal NOT indicated Walk 10 feet (QC): 88 Walk 50ft with 2 Turns (QC): 88 Walk 150 ft (QC): 88 Walking 10ft on Uneven Surface: 88 1 Step (curb) (QC): 88 4 Steps (QC): 88 12 Steps (QC): 88 Picking up an Object (QC): 88 Wheel 50 feet with 2 turns (QC: 6 Wheel 150 feet: 6 PT Plan Problem List Problem List: Activity Tolerance, Functional Strength, Safety Treatment/Plan Treatment Plan: Continue Plan of Care Treatment Plan: Bed Mobility, Education, Functional Activity [place], Functional Strength, Group Therapy, Gait, Safety, Therapeutic Exercise, Transfers Treatment Duration: Dec 21, 2019 Frequency: At least 5 of 7 days/Wk (IRF) Estimated Hrs Per Day: 1.5 hours per day Patient and/or Family Agrees t: Yes Safety Risks/Education Patient Education: Gait Training, Transfer Techniques, Correct Positioning, Safety Issues Teaching Recipient: Patient Teaching Methods: Discussion Response to Teaching: Verbalize Understanding Time/GCodes Time In: 1000 Time Out: 1045 Total Billed Treatment Time: 45 Total Billed Treatment 1, GT (15m) & EX x2 (30m) LUCIA MARIE [employer] Dec 09, 2019 11:01
--- NOTE | 2019-12-09 11:24 | Speech Therapy Daily Note ---
Speech Daily Progress Note Subjective Date Seen by Provider: Dec 09, 2019 Time Seen by Provider: 00:30 Patient was resting in his recliner following PT. He stated he really got worked out this morning. Objective Patient completed general information questions at the advanced level with 85% given minimal cues. Assessment Assessment Current Status: Good Progress Treatment Plan Continue Plan of Care Speech Short Term Goals Short Term Goals Short Term Goals 1) The patient will complete memory tasks related to his daily needs at 90% or greater with minimal cues. 2) The patient will complete safety awareness tasks related to his daily needs at 90% or greater with minimal cues. 3) The patient will complete problem solving tasks related to his daily needs at 90% or greater with minimal cues. Speech Long-Term Goals Long-Term Goals Patient will improve cognitive-communication necessary for safety and daily living tasks with minimal assist. Speech-Plan Patient/Family Goals Patient/Family Goals: Patient plans on returning to his home with family upon discharge. Treatment Plan Speech Therapy Treatment Plan: Continue Plan of Care Treatment Duration: Dec 10, 2019 Frequency: 4 times per week (Patient will receive skilled ST 4-5x per week) Estimated Hrs Per Day: .5 hour per day Rehab Potential: Fair Barriers to Learning: Patient's mild cognitive deficits Pt/Family Agrees to Plan: Yes Safety Risks/Education Teaching Recipient: Patient Teaching Methods: Demonstration, Discussion Response to Teaching: Verbalize Understanding, Return Demonstration Education Topics Provided: Continued safety within his room and upon his return home. Time Speech Therapy Time In: 09:00 Speech Therapy Time Out: 09:30 Total Billed Time: 30 Billed Treatment Time 1, ROYAL Lowry Dec 09, 2019 11:24
--- NOTE | 2019-12-09 13:30 | NUR ---
ASSUMED CARE OF PATIENT AT THIS TIME. REPORT REC'D FROM [facility]. AGREE WITH AM ASSESSMENT.
--- NOTE | 2019-12-09 15:47 | Physical Therapy Daily Note ---
PT Daily Note-Current Subjective Pt sitting in recliner upon arrival. Pt agrees to PT. Pain Location: No Pain Reported Mental Status Patient Orientation: Person, Place, Situation Transfers SCALE: Activities may be completed with or without assistive devices. 1-Ydhqejsfag-asfjurs completes the activity by him/herself with no assistance from a helper. 5-Set-up or Clean-up Assistance-helper sets up or cleans up; patient completes activity. [place] assists only prior to or following the activity. 4-Supervision or Touching Assistance-helper provides verbal cues and/or touching/steadying and/or contact guard assistance as patient completes activity. Assistance may be provided throughout the activity or intermittently. 3-Partial/Moderate Assistance-helper does LESS THAN HALF the effort. [place] lifts, holds or supports trunk or limbs, but provides less than half the effort. 2-Substantial/Maximal Assistance-helper does MORE THAN HALF the effort. [place] lifts or holds trunk or limbs and provides more than half the effort. 7-Gjrdxfnvr-nvzzwk does ALL the effort. Patient does none of the effort to complete the activity. Or, the assistance of 2 or more helpers is required for the patient to complete the activity. If activity was not attempted, code reason: 7-Patient Refused. 9-Not Applicable-not attempted and the patient did not perform the activity before the current illness, exacerbation or injury. 10-Not Attempted due to Environmental Limitations-(lack of equipment, weather restraints, etc.). 88-Not Attempted due to Medical Conditions or Safety Concerns. Sit to Stand (QC): 4 Chair/Cvk-tr-Bxdse Xfer(QC): 4 Car Transfer (QC): 4 Weight Bearing Right Lower Extremity: Right Full Weight Bearing Left Lower Extremity: Left Full Weight Bearing Wheelchair Training Does the Pt Use a Wheelchair?: Yes Wheel 50 ft with 2 turns (QC): 5 Wheel 150 ft (QC): 5 Type of Wheelchair: Manual Pt completed Figure 8 x5sets to focus on mobility and turns proficiently. Treatments Pt transfers from recliner to [facility] and propels in hallway, completing 5 Figure 8s. Pt takes rest break then practices car transfer for upcoming appointment. Pt returns to room to transfer to recliner to rest. Pt has all needs met, call light in hand. Assessment Current Status: Good Progress Pt fatigues and needs occasional RB. PT Short Term Goals Short Term Goals Time Frame: Dec 07, 2019 Roll Left & Right: 4 Sit to lyin Lying to sitting on side of be: 3 Sit to stand: 2 Chair/cff-rs-kftmu transfer: 2 PT Border Police Goals Correction Goals PT Border Police Goals Time Frame: Dec 21, 2019 Roll Left & Right (QC): 6 Sit to Lying (QC): 4 Lying-Sitting on Side/Bed(QC): 4 Sit to Stand (QC): 3 Chair/Jel-jb-Spvsk Xfer(QC): 3 Toilet Transfer (QC): 3 Car Transfer (QC): 3 Does the Patient Walk: No and Walking Goal NOT indicated Walk 10 feet (QC): 88 Walk 50ft with 2 Turns (QC): 88 Walk 150 ft (QC): 88 Walking 10ft on Uneven Surface: 88 1 Step (curb) (QC): 88 4 Steps (QC): 88 12 Steps (QC): 88 Picking up an Object (QC): 88 Wheel 50 feet with 2 turns (QC: 6 Wheel 150 feet: 6 PT Plan Problem List Problem List: Activity Tolerance, Functional Strength, Transfer Treatment/Plan Treatment Plan: Continue Plan of Care Treatment Plan: Bed Mobility, Education, Functional Activity [place], Functional Strength, Group Therapy, Gait, Safety, Therapeutic Exercise, Transfers Treatment Duration: Dec 21, 2019 Frequency: At least 5 of 7 days/Wk (IRF) Estimated Hrs Per Day: 1.5 hours per day Patient and/or Family Agrees t: Yes Safety Risks/Education Patient Education: Transfer Techniques, Correct Positioning, W/C Management, Safety Issues Teaching Recipient: Patient Teaching Methods: Discussion Response to Teaching: Verbalize Understanding Time/GCodes Time In: 1430 Time Out: 1500 Total Billed Treatment Time: 30 Total Billed Treatment 1, [facility] (15m) & FA (15m) LUCIA MARIE PTA Dec 09, 2019 15:47
[2019-12-09] MEDS: DOCUSATE SODIUM 100 MG (COLACE) CAP PO SCH ×2 (15:57→20:50)
[2019-12-09] MEDS: ASPIRIN 81 MG CHEW (CHILDREN'S ASA) PO SCH (15:57)
[2019-12-09] MEDS: polyethylene glycoL POWDER 17 GM (MIRALAX) PACK PO SCH ×2 (15:58→20:51)
[2019-12-09] MEDS: meTOproloL SUCCINATE 50 MG (TOPROL XL) TAB PO SCH (15:58)
[2019-12-09] MEDS: SENNA W/DOCUSATE (SENOKOT S) TABLET PO SCH ×2 (15:58→20:51)
[2019-12-09] MEDS: NAPROXEN 250 MG (NAPROSYN) TABLET PO SCH ×2 (15:59→17:08)
[2019-12-09] MEDS: ENOXAPARIN 40 MG/0.4 ML (LOVENOX) SYR SC SCH ×2 (15:59→20:47)
[2019-12-09 16:45] VITALS: BP 116/68
[2019-12-10 05:28] VITALS: BP 118/75
[2019-12-10] MEDS: ASPIRIN 81 MG CHEW (CHILDREN'S ASA) PO SCH (09:40)
[2019-12-10] MEDS: NAPROXEN 250 MG (NAPROSYN) TABLET PO SCH ×2 (09:40→18:15)
[2019-12-10] MEDS: polyethylene glycoL POWDER 17 GM (MIRALAX) PACK PO SCH ×2 (09:41→20:42)
[2019-12-10] MEDS: DOCUSATE SODIUM 100 MG (COLACE) CAP PO SCH ×2 (09:41→20:42)
[2019-12-10] MEDS: SENNA W/DOCUSATE (SENOKOT S) TABLET PO SCH ×2 (09:41→20:42)
[2019-12-10] MEDS: meTOproloL SUCCINATE 50 MG (TOPROL XL) TAB PO SCH (09:41)
--- NOTE | 2019-12-10 10:32 | PM&R Progress Note ---
Subjective HPI/CC On Admission Date Seen by Provider: Dec 10, 2019 Time Seen by Provider: 10:40 Subjective/Events-last exam 12/10/19: Son gets tomorrow and due to COVID policy he will not be able to leave [facility] Loose stools holding laxatives No pain reported 12/09/19: No major issues No significant clinical status changes Left knee much improved with the Naproxen Overall feels like he is progressing nicely 12/08/19: Naproxen really helping the left knee pain Walked back and forth to the gym and really making some progress Loose stools will hold laxatives Check meds and labs 12/07/19: Continue Naproxen since it is helping his left knee pain Overall feels like he is gaining strength Bowels are moving well 12/06/19: Labs remain stable, Platelets at 621,000 Left knee better Standing with only one assist now Overall doing a lot better 12/05/19: Left knee pain improved Naproxen helpful No falls Feels rested up 12/04/19: BM moved 3 days ago so he took laxatives Left knee pain improved 12/03/19: Left knee is better Chronic right-sided weakness will be managed with therapy Fall risk prevention 12/02/19: Naproxen was started yesterday by Dr. Nash Still continues to talk about the left knee pain Bowels are moving pretty well X-ray of the left knee shows no fracture Sister at the bedside today Very talkative Left knee X-ray and Dr. Nash consult for left knee pain Bowels are moving well Eating and drinking well Checked meds and labs Conferred with RN Reviewed therapy notes Review of Systems General: Fatigue, Malaise Objective Exam Vital Signs Vital Signs Date Time Temp Pulse Resp B/P (MAP) Pulse Ox O2 Delivery O2 Flow Rate FiO2 12/10/19 16:30 36.2 63 16 117/68 (84) 97 Room Air Capillary Refill : Less Than 3 Seconds General Appearance: No Apparent Distress, WD/WN, Chronically ill HEENT: PERRL/EOMI, Normal ENT Inspection, Pharynx Normal Neck: Full Range of Motion, Normal Inspection, Non Tender, Supple, Carotid Bruit Respiratory: Chest Non Tender, Lungs Clear, Normal Breath Sounds, No Accessory Muscle Use, No Respiratory Distress Cardiovascular: Regular Rate, Rhythm, No Edema, No Gallop, No JVD, No Murmur, Normal Peripheral Pulses Gastrointestinal: Normal Bowel Sounds, No Organomegaly, No Pulsatile Mass, Non Tender, Soft Back: Normal Inspection, No CVA Tenderness, No Vertebral Tenderness Extremity: Normal Capillary Refill, Normal Inspection, Normal Range of Motion, Non Tender, No Calf Tenderness, No Pedal Edema Neurologic/Psychiatric: Alert, Oriented x3, No Motor/Sensory Deficits, Normal Mood/Affect, perfume compounder II-XII Norm as Tested, Abnormal Gait, Motor Weakness (3/5 legs) Skin: Normal Color, Warm/Dry Lymphatic: No Adenopathy Results/Procedures Lab Patient resulted labs reviewed. FIM Transfers Therapy Code Descriptions/Definitions Functional [place] Measure: 0=Not Assessed/NA 4=Minimal Assistance 1=Total Assistance 5=Supervision or Setup 2=Maximal Assistance 6=Modified [place] 3=Moderate Assistance 7=Complete IndependenceSCALE: Activities may be completed with or without assistive devices. 5-Seatiyumbv-uohhkam completes the activity by him/herself with no assistance from a helper. 5-Set-up or Clean-up Assistance-helper sets up or cleans up; patient completes activity. [employer] assists only prior to or following the activity. 4-Supervision or Touching Assistance-helper provides verbal cues and/or touching/steadying and/or contact guard assistance as patient completes activity. Assistance may be provided throughout the activity or intermittently. 3-Partial/Moderate Assistance-helper does LESS THAN HALF the effort. [employer] lifts, holds or supports trunk or limbs, but provides less than half the effort. 2-Substantial/Maximal Assistance-helper does MORE THAN HALF the effort. [employer] lifts or holds trunk or limbs and provides more than half the effort. 3-Udekexatp-biwqpl does ALL the effort. Patient does none of the effort to complete the activity. Or, the assistance of 2 or more helpers is required for the patient to complete the activity. If activity was not attempted, code reason: 7-Patient Refused. 9-Not Applicable-not attempted and the patient did not perform the activity before the current illness, exacerbation or injury. 10-Not Attempted due to Environmental Limitations-(lack of equipment, weather restraints, etc.). 88-Not Attempted due to Medical Conditions or Safety Concerns. Roll Left to Right (QC): 6 Sit to Lying (QC): 6 Sit to Stand (QC): 4 Chair/Kdg-za-Pqjul Xfer(QC): 4 Car Transfer (QC): 4 Gait Training Does the Patient Walk?: Yes Distance: 100' Walk 10 feet (QC): 4 Walk 50 ft with 2 Turns(QC): 4 Walk 150 ft (QC): 4 Walking 10ft/uneven surface-QC: 88 Gait Persons Needed: 1 Gait Assistive Device: FWW Wheelchair Training Does the Pt Use a Wheelchair?: Yes Distance: 150'x2 Wheel 50 ft with 2 turns (QC): 5 Wheel 150 ft (QC): 5 Type of Wheelchair: Manual Stair Training 1 Step (curb) (QC): 88 4 Steps (QC): 88 12 Steps (QC): 88 Balance Picking up an Object (QC): 88 ADL-Treatment Eating (QC): 6 Oral Hygiene (QC): 6 Bathing Location: L Arm, R Arm, L Upper Leg, R Upper Leg, L Lower Leg (including foot), R Lower Leg (including foot), Chest, Abdomen, Buttocks, Perineal Area Shower/Bathe Self (QC): 4 Upper Body Dressing (QC): 6 Lower Body Dressing (QC): 4 On/Off Footwear (QC): 5 Toileting Hygiene (QC): 4 Toilet Transfer (QC): 4 Assessment/Plan Assessment and Plan Assess & Plan/Chief Complaint Assessment: MS flare Fall s/p UTI New onset AF w/RVR Left knee pain Thrombocytosis Plan: Ortho consult IRF protocol Home meds BM regimen 12/01/19: Very talkative Consult Dr. Nash for left knee pain Bowels moving well Sister at bedside today 12/02/19: Continue Naproxen for left knee pain Bowels moving well Right side is still very weak 12/03/19: Continue left knee treatment Chronic right side weakness Fall prevention education 12/04/19: Naproxen BID Knee pain management 12/05/19: Maintain left knee pain management Falls still increased risk 12/06/19: Continue intensive therapy Naproxen for left knee pain Appreciate Dr. Nash 12/07/19: Continue Naproxen Bowel regimen good Discharge soon 12/08/19: Dramatic improvement Increase aggressive therapy with walking and fall prevention 12/09/19: Pain meds doing well BM regimen 12/10/19: Naproxen for left knee pain Monitor bowels (1) Left knee pain (2) Atrial fibrillation (3) History of UTI (4) Fall (5) Multiple sclerosis GEORGI WATT DO Dec 10, 2019 10:32
--- NOTE | 2019-12-10 11:02 | Physical Therapy Daily Note ---
PT Daily Note-Current Subjective Pt. agrees to Rx. Inquires as to whether or not he will be allowed a pass for a wedding tomorrow. States he has not spoken to anyone about the results of wed. meeting . This MANAGER TELEMARKETING communicated with the Physician and nurse who states pt will not be allowed to go to wedding secondary to covid precautions. Pts. DC date is likely Dec 13. Pt. also shares he has had 2 previous significant head injuries prior to MS Dx Pain Location: No Pain Reported Mental Status Patient Orientation: Person, Place, Time, Situation Transfers SCALE: Activities may be completed with or without assistive devices. 5-Weimjozxmb-wywiouq completes the activity by him/herself with no assistance from a helper. 5-Set-up or Clean-up Assistance-helper sets up or cleans up; patient completes activity. [place] assists only prior to or following the activity. 4-Supervision or Touching Assistance-helper provides verbal cues and/or touching/steadying and/or contact guard assistance as patient completes activity. Assistance may be provided throughout the activity or intermittently. 3-Partial/Moderate Assistance-helper does LESS THAN HALF the effort. [place] lifts, holds or supports trunk or limbs, but provides less than half the effort. 2-Substantial/Maximal Assistance-helper does MORE THAN HALF the effort. [place] lifts or holds trunk or limbs and provides more than half the effort. 5-Sxsslcrtw-fkpavi does ALL the effort. Patient does none of the effort to complete the activity. Or, the assistance of 2 or more helpers is required for the patient to complete the activity. If activity was not attempted, code reason: 7-Patient Refused. 9-Not Applicable-not attempted and the patient did not perform the activity before the current illness, exacerbation or injury. 10-Not Attempted due to Environmental Limitations-(lack of equipment, weather restraints, etc.). 88-Not Attempted due to Medical Conditions or Safety Concerns. Roll Left & Right (QC): 6 Sit to Lying (QC): 6 Lying to Sitting/Side of Bed(Q: 6 Sit to Stand (QC): 6 Chair/Qdp-pt-Osynp Xfer(QC): 5 Weight Bearing Right Lower Extremity: Right Full Weight Bearing Left Lower Extremity: Left Full Weight Bearing Gait Training Does the Patient Walk?: Yes Walk 10 feet (QC): 4 Walk 50 ft with 2 Turns(QC): 4 Gait Persons Needed: 1 Gait Assistive Device: FWW narrow MANUEL, tremors bilat during gait. poor clearance R foot during gait. some circumduction noted Wheelchair Training Does the Pt Use a Wheelchair?: Yes Wheel 50 ft with 2 turns (QC): 6 Wheel 150 ft (QC): 6 Type of Wheelchair: Manual Exercises Supine Ex: Bridging, Ankle pumps (HC stretches right), Quad Set, Rolling, Glut sets, Heel Slides (PROM right), Short Arc Quads, Straight leg raise (assisted bi lat), Hip abd/add (add stretches bilat) Supine Reps: 12 Treatments in out bed SBA, gait 50-60 ft x 3, bilat LE therex in sup and sit , RLE stretches and PROM Assessment Current Status: Good Progress PT Short Term Goals Short Term Goals Time Frame: Dec 07, 2019 Roll Left & Right: 4 Sit to lyin Lying to sitting on side of be: 3 Sit to stand: 2 Chair/zas-mv-lurqd transfer: 2 PT Intermediate Goals Intermediate Goals PT Health Services Coordinator Goals Time Frame: Dec 21, 2019 Roll Left & Right (QC): 6 Sit to Lying (QC): 4 Lying-Sitting on Side/Bed(QC): 4 Sit to Stand (QC): 3 Chair/Juz-ug-Clcrv Xfer(QC): 3 Toilet Transfer (QC): 3 Car Transfer (QC): 3 Does the Patient Walk: No and Walking Goal NOT indicated Walk 10 feet (QC): 88 Walk 50ft with 2 Turns (QC): 88 Walk 150 ft (QC): 88 Walking 10ft on Uneven Surface: 88 1 Step (curb) (QC): 88 4 Steps (QC): 88 12 Steps (QC): 88 Picking up an Object (QC): 88 Wheel 50 feet with 2 turns (QC: 6 Wheel 150 feet: 6 PT Plan Treatment/Plan Treatment Plan: Continue Plan of Care Treatment Plan: Bed Mobility, Education, Functional Activity [place], Functional Strength, Group Therapy, Gait, Safety, Therapeutic Exercise, Transfers Treatment Duration: Dec 21, 2019 Frequency: At least 5 of 7 days/Wk (IRF) Estimated Hrs Per Day: 1.5 hours per day Patient and/or Family Agrees t: Yes Safety Risks/Education Patient Education: Gait Training, Transfer Techniques, Correct Positioning, W/C Management, Disease Process, Safety Issues Teaching Recipient: Patient Teaching Methods: Demonstration, Discussion Response to Teaching: Verbalize Understanding, Return Demonstration, Reinforcement Needed Time/GCodes Time In: 1000 Time Out: 1100 Total Billed Treatment Time: 60 Total Billed Treatment 1,GT20m,EX25mn,FA15m FOSTER INFANTE MANAGER TELEMARKETING Dec 10, 2019 11:02
--- NOTE | 2019-12-10 11:25 | Speech Therapy Daily Note ---
Speech Daily Progress Note Subjective Date Seen by Provider: Dec 10, 2019 Time Seen by Provider: 00:30 Patient alert and sitting in his recliner when I entered his room. Objective Patient completed advanced level of memory tasks at 80% with 20% verbal cuing. Assessment Assessment Current Status: Good Progress Treatment Plan Continue Plan of Care Speech Short Term Goals Short Term Goals Short Term Goals 1) The patient will complete memory tasks related to his daily needs at 90% or greater with minimal cues. 2) The patient will complete safety awareness tasks related to his daily needs at 90% or greater with minimal cues. 3) The patient will complete problem solving tasks related to his daily needs at 90% or greater with minimal cues. Speech Chief Information Security Officer Goals Chief Information Security Officer Goals Patient will improve cognitive-communication necessary for safety and daily living tasks with minimal assist. Speech-Plan Patient/Family Goals Patient/Family Goals: Patient plans on returning home where he lives with family. Treatment Plan Speech Therapy Treatment Plan: Continue Plan of Care Treatment Duration: Dec 10, 2019 Frequency: 4 times per week (Patient will receive skilled ST 4-5x per week) Estimated Hrs Per Day: .5 hour per day Rehab Potential: Fair Barriers to Learning: Patient's mild cognitive deficits related to his medical status, however these deficits are resolving well Pt/Family Agrees to Plan: Yes Safety Risks/Education Teaching Recipient: Patient Teaching Methods: Demonstration, Discussion Response to Teaching: Verbalize Understanding, Return Demonstration Education Topics Provided: Patient's safety upon his return home Time Speech Therapy Time In: 09:00 Speech Therapy Time Out: 09:30 Total Billed Time: 30 Billed Treatment Time 1AN[address] Dec 10, 2019 11:25
--- NOTE | 2019-12-10 11:42 | NUR ---
therapy notices blood on towel after shower near groin area. groin, buttock and other waist areas checked. slightly reddened between legs, where legs rub together, slightly reddened under scrotal area et between cheeks. no open areas noted. zinc lotion/barrier cream applied to reddened areas. dried blood noted from previously scabbed scratch on posterior Rt leg. no longer bleeding at this time. skin on legs very dry, lotion applied to all areas. 2+ pitting edema noted in Rt leg. education given re: SCD's, exercise, and increasing fluid intake/output to prevent further complication., pt voices understanding. will con't to monitor.
--- NOTE | 2019-12-10 12:32 | Occupational Ther Daily Note ---
OT Current Status-Daily Note Subjective Pt alert, lying in bed. Pt agrees to therapy. During bathing blood noted on towel pt was sitting on, reported to nrsg, nrsg aware. No c/o pain. Mental Status/Objective Patient Orientation: Person, Place, Time, Situation ADL-Treatment Pt agrees to shower. Supine <--> EOB, mod I. Close SBA for sit to stand and ambulation to bathroom. SBA to transfer in/out of shower. Pt completed bathing sitting on shower bench, leaning side to side to cleanse buttocks, using hand held shower and grabbars with supervision for safety. After set up, pt able to complete upper body dressing. After set up, pt able to don/doff pants with SBA. Pt took increased time to don clothing due to B LE shaking. Educated pt on use of AE for lower body equipment when fatigued. Pt used sock aide to don sock. Sitting at sink, pt able to complete own oral care. Therapy Code Descriptions/Definitions Functional [place] Measure: 0=Not Assessed/NA 4=Minimal Assistance 1=Total Assistance 5=Supervision or Setup 2=Maximal Assistance 6=Modified [place] 3=Moderate Assistance 7=Complete IndependenceSCALE: Activities may be completed with or without assistive devices. 1-Fmonvlatzv-eczuehv completes the activity by him/herself with no assistance from a helper. 5-Set-up or Clean-up Assistance-helper sets up or cleans up; patient completes activity. [place] assists only prior to or following the activity. 4-Supervision or Touching Assistance-helper provides verbal cues and/or touching/steadying and/or contact guard assistance as patient completes activity. Assistance may be provided throughout the activity or intermittently. 3-Partial/Moderate Assistance-helper does LESS THAN HALF the effort. [place] lifts, holds or supports trunk or limbs, but provides less than half the effort. 2-Substantial/Maximal Assistance-helper does MORE THAN HALF the effort. [place] lifts or holds trunk or limbs and provides more than half the effort. 1-Gyxjsxmdk-dzvbys does ALL the effort. Patient does none of the effort to complete the activity. Or, the assistance of 2 or more helpers is required for the patient to complete the activity. If activity was not attempted, code reason: 7-Patient Refused. 9-Not Applicable-not attempted and the patient did not perform the activity before the current illness, exacerbation or injury. 10-Not Attempted due to Environmental Limitations-(lack of equipment, weather restraints, etc.). 88-Not Attempted due to Medical Conditions or Safety Concerns. Oral Hygiene (QC): 6 Shower/Bathe Self (QC): 4 (Supervision) Upper Body Dressing (QC): 5 Lower Body Dressing (QC): 4 (SBA) On/Off Footwear: 5 Other Treatment Pt demonstrated understanding for UE theraband exercises. Pt utilized light resistance theraband during session, due to difficulty completing full movement with medium resistance theraband. BURT introduced new exercise for int/ext rotation of shldr. After therapy, pt lying in bed. Call light/phone in reach. All needs met in room. Education OT Patient Education: Exercise program, Transfer techniques, Use of adapted equipment Teaching Recipient: Patient Teaching Methods: Demonstration, Discussion Response to Teaching: Verbalize Understanding, Return Demonstration, Reinforcement Needed OT Short Term Goals Short Term Goals Toileting hygiene: 2 Lower body dressin OT Email Designer Goals Email Designer Goals Time Frame: Dec 14, 2019 Eating (QC): 6 Oral Hygiene (QC): 6 Toileting Hygiene (QC): 6 Shower/Bathe Self (QC): 6 Upper Body Dressing (QC): 6 Lower Body Dressing (QC): 6 On/Off Footwear (QC): 6 Additional Goals: 1-Demonstrate ADL Tasks, 2-Verbalize Understanding, 3- ImproveStrength/[place] 1=Demonstrate adherence to instructed precautions during ADL tasks. 2=Patient will verbalize/demonstrate understanding of assistive devices/modifications for ADL. 3=Patient will improve strength/tolerance for activity to enable patient to perform ADL's. OT Education/Plan Problem List/Assessment Assessment: Decreased Activ Tolerance, Decreased UE Strength, Impaired Self- Care Skills Discharge Recommendations Plan/Recommendations: Continue POC Treatment Plan/Plan of Care Patient would benefit from OT for education, treatment and training to promote independence in ADL's, mobility, safety and/or upper extremity function for ADL's. Plan of Care: ADL Retraining, Caregiver Training, Cognitive Retraining, Concurrent Therapy, Functional Mobility, Group Exercise/Act as Ind, UE Funct Exercise/Act, W/C Management Training Treatment Duration: Dec 14, 2019 Frequency: At least 5 of 7 days/Wk (IRF) Estimated Hrs Per Day: 1.5 hours per day Agreement: Yes Rehab Potential: Fair Time/GCodes Start Time: 11:00 Stop Time: 12:00 Total Time Billed (hr/min): 60 Billed Treatment Time 1 visit-ADL 3 (45 min) EX 1 (15 min) ELVIN CROWLEY Dec 10, 2019 12:32
--- NOTE | 2019-12-10 14:45 | Therapy Group Daily Note ---
Therapy Daily Group Note Patient Education Topic Other List Below (TRFs bed and chair and mobility, preparing for independence) Exercises LE Seated Exercise, UE Exercise Session Ratio (pt:therapist): 4:1 Goal of Session: Memory Strategies, Safety with Transfers Goal Met for this Session: Yes Pt Benefit of Group: F/U Use of Strategies @Home, Increased Functional Strength, Socialization Other/Notes Pt. participated in group PT OT session . Pt. came and went via w/c as he states he is tired and fatigued. Pts. reviewed the memory activity of last group session recalling 5 items, all successful. Friday therapy was explained. Bed and chair TRFs were demonstrated and explained in detail. The goal of working toward independence and home was discussed. Seated U&L extremity therex was done with pts leading and demonstrating from written illustration cards. Pt. to room after with all needs met, rock at hand Start Time: 13:00 Stop Time: 14:15 Total Billed Treatment Time: 75 Total Billed Treatment 1,GRP FOSTER INFANTE AGILE QA TESTER Dec 10, 2019 14:45
--- NOTE | 2019-12-10 15:32 | NUR ---
CM/SS PATIENT CARE CONFERENCE and DISCHARGE PLANNING Documentation delayed by 24 hour EMR outage. Reviewed Summary with patient, he is in agreement with his discharge target of Saturday, December 14, 2019. He will return to his home he is establishing with his sister in [place]. Regarding post hospital care and resources, patient is uninsured. Utilization of agencies will need to be those that are [facility] affiliated due to [facility] care or those that will offer financial assistance options. HHC: Team recommended PT and OT, keno writer requesting adding RN due to recent onset afib and new Rx as well as patient's noncompliance regarding historical Rx. [facility] will provide services if PCP Dr. Henderson agrees to follow for HHC orders. DME: Patient will need wheelchair, FWW per DOCUMENTATION COORDINATOR, hip kit. [facility]/Alice is assisting patient with HCBS Physical Disability Waiver. Spare Person assisting in this process. Followup Friday to finalize Discharge.
[2019-12-10 16:30] VITALS: BP 117/68
[2019-12-10] MEDS: ENOXAPARIN 40 MG/0.4 ML (LOVENOX) SYR SC SCH (20:48)
[2019-12-11 06:00] VITALS: BP 119/84
[2019-12-11] MEDS: ASPIRIN 81 MG CHEW (CHILDREN'S ASA) PO SCH (08:19)
[2019-12-11] MEDS: NAPROXEN 250 MG (NAPROSYN) TABLET PO SCH ×2 (08:19→17:40)
[2019-12-11] MEDS: meTOproloL SUCCINATE 50 MG (TOPROL XL) TAB PO SCH (08:19)
[2019-12-11] MEDS: SENNA W/DOCUSATE (SENOKOT S) TABLET PO SCH ×2 (08:21→20:22)
[2019-12-11] MEDS: polyethylene glycoL POWDER 17 GM (MIRALAX) PACK PO SCH ×2 (08:21→20:22)
[2019-12-11] MEDS: DOCUSATE SODIUM 100 MG (COLACE) CAP PO SCH ×2 (08:21→20:22)
--- NOTE | 2019-12-11 11:55 | PM&R Progress Note ---
Subjective HPI/CC On Admission Date Seen by Provider: Dec 11, 2019 Time Seen by Provider: 12:00 Subjective/Events-last exam 12/11/19: Can't go to wedding of son MERRITT 12/10/19 Barrier cream continued 12/10/19: Son gets tomorrow and due to COVID policy he will not be able to leave [facility] Loose stools holding laxatives No pain reported 12/09/19: No major issues No significant clinical status changes Left knee much improved with the Naproxen Overall feels like he is progressing nicely 12/08/19: Naproxen really helping the left knee pain Walked back and forth to the gym and really making some progress Loose stools will hold laxatives Check meds and labs 12/07/19: Continue Naproxen since it is helping his left knee pain Overall feels like he is gaining strength Bowels are moving well 12/06/19: Labs remain stable, Platelets at 621,000 Left knee better Standing with only one assist now Overall doing a lot better 12/05/19: Left knee pain improved Naproxen helpful No falls Feels rested up 12/04/19: MERRITT moved 3 days ago so he took laxatives Left knee pain improved 12/03/19: Left knee is better Chronic right-sided weakness will be managed with therapy Fall risk prevention 12/02/19: Naproxen was started yesterday by Dr. Nash Still continues to talk about the left knee pain Bowels are moving pretty well X-ray of the left knee shows no fracture Sister at the bedside today Very talkative Left knee X-ray and Dr. Nash consult for left knee pain Bowels are moving well Eating and drinking well Checked meds and labs Conferred with RN Reviewed therapy notes Review of Systems General: Fatigue, Malaise Neurological: Weakness Objective Exam Vital Signs Vital Signs Date Time Temp Pulse Resp B/P (MAP) Pulse Ox O2 Delivery O2 Flow Rate FiO2 12/11/19 09:00 Room Air 12/11/19 06:00 36.3 71 18 119/84 (96) 95 Capillary Refill : Less Than 3 Seconds General Appearance: No Apparent Distress, WD/WN, Chronically ill HEENT: PERRL/EOMI, Normal ENT Inspection, Pharynx Normal Neck: Full Range of Motion, Normal Inspection, Non Tender, Supple, Carotid Bruit Respiratory: Chest Non Tender, Lungs Clear, Normal Breath Sounds, No Accessory Muscle Use, No Respiratory Distress Cardiovascular: Regular Rate, Rhythm, No Edema, No Gallop, No JVD, No Murmur, Normal Peripheral Pulses Gastrointestinal: Normal Bowel Sounds, No Organomegaly, No Pulsatile Mass, Non Tender, Soft Back: Normal Inspection, No CVA Tenderness, No Vertebral Tenderness Extremity: Normal Capillary Refill, Normal Inspection, Normal Range of Motion, Non Tender, No Calf Tenderness, No Pedal Edema Neurologic/Psychiatric: Alert, Oriented x3, No Motor/Sensory Deficits, Normal Mood/Affect, it applications manager II-XII Norm as Tested, Abnormal Gait, Motor Weakness (3/5 legs) Skin: Normal Color, Warm/Dry Lymphatic: No Adenopathy Results/Procedures Lab Patient resulted labs reviewed. FIM Transfers Therapy Code Descriptions/Definitions Functional [place] Measure: 0=Not Assessed/NA 4=Minimal Assistance 1=Total Assistance 5=Supervision or Setup 2=Maximal Assistance 6=Modified [place] 3=Moderate Assistance 7=Complete IndependenceSCALE: Activities may be completed with or without assistive devices. 6-Nfzcbfdsad-jkzbctg completes the activity by him/herself with no assistance from a helper. 5-Set-up or Clean-up Assistance-helper sets up or cleans up; patient completes activity. [place] assists only prior to or following the activity. 4-Supervision or Touching Assistance-helper provides verbal cues and/or touching/steadying and/or contact guard assistance as patient completes activity. Assistance may be provided throughout the activity or intermittently. 3-Partial/Moderate Assistance-helper does LESS THAN HALF the effort. [place] lifts, holds or supports trunk or limbs, but provides less than half the effort. 2-Substantial/Maximal Assistance-helper does MORE THAN HALF the effort. [place] lifts or holds trunk or limbs and provides more than half the effort. 1-Hgcxwmobv-timxmr does ALL the effort. Patient does none of the effort to complete the activity. Or, the assistance of 2 or more helpers is required for the patient to complete the activity. If activity was not attempted, code reason: 7-Patient Refused. 9-Not Applicable-not attempted and the patient did not perform the activity before the current illness, exacerbation or injury. 10-Not Attempted due to Environmental Limitations-(lack of equipment, weather restraints, etc.). 88-Not Attempted due to Medical Conditions or Safety Concerns. Roll Left to Right (QC): 6 Sit to Lying (QC): 6 Sit to Stand (QC): 6 Chair/Uej-qt-Ohnsk Xfer(QC): 5 Car Transfer (QC): 4 Gait Training Does the Patient Walk?: Yes Distance: 100' Walk 10 feet (QC): 4 Walk 50 ft with 2 Turns(QC): 4 Walk 150 ft (QC): 4 Walking 10ft/uneven surface-QC: 88 Gait Persons Needed: 1 Gait Assistive Device: FWW Wheelchair Training Does the Pt Use a Wheelchair?: Yes Distance: 150'x2 Wheel 50 ft with 2 turns (QC): 6 Wheel 150 ft (QC): 6 Type of Wheelchair: Manual Stair Training 1 Step (curb) (QC): 88 4 Steps (QC): 88 12 Steps (QC): 88 Balance Picking up an Object (QC): 88 ADL-Treatment Eating (QC): 6 Oral Hygiene (QC): 6 Bathing Location: L Arm, R Arm, L Upper Leg, R Upper Leg, L Lower Leg (including foot), R Lower Leg (including foot), Chest, Abdomen, Buttocks, P erineal Area Shower/Bathe Self (QC): 4 (Supervision) Upper Body Dressing (QC): 5 Lower Body Dressing (QC): 4 (SBA) On/Off Footwear (QC): 5 Toileting Hygiene (QC): 4 Toilet Transfer (QC): 4 Assessment/Plan Assessment and Plan Assess & Plan/Chief Complaint Assessment: MS flare Fall s/p UTI New onset AF w/RVR Left knee pain Thrombocytosis Plan: Ortho consult IRF protocol Home meds BM regimen 12/01/19: Very talkative Consult Dr. Nash for left knee pain Bowels moving well Sister at bedside today 12/02/19: Continue Naproxen for left knee pain Bowels moving well Right side is still very weak 12/03/19: Continue left knee treatment Chronic right side weakness Fall prevention education 12/04/19: Naproxen BID Knee pain management 12/05/19: Maintain left knee pain management Falls still increased risk 12/06/19: Continue intensive therapy Naproxen for left knee pain Appreciate Dr. Nash 12/07/19: Continue Naproxen Bowel regimen good Discharge soon 8/19/20: Dramatic improvement Increase aggressive therapy with walking and fall prevention 12/09/19: Pain meds doing well BM regimen 12/10/19: Naproxen for left knee pain Monitor bowels 12/11/19: Monitor pain Naproxen Fall risk prevention (1) Left knee pain (2) Atrial fibrillation (3) History of UTI (4) Fall (5) Multiple sclerosis GEORGI WATT DO Dec 11, 2019 11:55
--- NOTE | 2019-12-11 12:51 | Physical Therapy Daily Note ---
PT Daily Note-Current Subjective Pt up in chair, ready to go to PT. Pt denied pain. Mental Status Patient Orientation: Person, Place, Situation Transfers SCALE: Activities may be completed with or without assistive devices. 6-Dzcpqfavfe-hvajbdk completes the activity by him/herself with no assistance from a helper. 5-Set-up or Clean-up Assistance-helper sets up or cleans up; patient completes activity. [place] assists only prior to or following the activity. 4-Supervision or Touching Assistance-helper provides verbal cues and/or touching/steadying and/or contact guard assistance as patient completes activity. Assistance may be provided throughout the activity or intermittently. 3-Partial/Moderate Assistance-helper does LESS THAN HALF the effort. [place] lifts, holds or supports trunk or limbs, but provides less than half the effort. 2-Substantial/Maximal Assistance-helper does MORE THAN HALF the effort. [place] lifts or holds trunk or limbs and provides more than half the effort. 1-Dtsycaaid-bnebdl does ALL the effort. Patient does none of the effort to complete the activity. Or, the assistance of 2 or more helpers is required for the patient to complete the activity. If activity was not attempted, code reason: 7-Patient Refused. 9-Not Applicable-not attempted and the patient did not perform the activity before the current illness, exacerbation or injury. 10-Not Attempted due to Environmental Limitations-(lack of equipment, weather restraints, etc.). 88-Not Attempted due to Medical Conditions or Safety Concerns. Weight Bearing Right Lower Extremity: Right Full Weight Bearing Left Lower Extremity: Left Full Weight Bearing Treatments Pt amb with FWW and f/u of w/c x 100ft. Pt used nu-step x 6:30, level 1. Pt back to recliner with call light and all needs met. Assessment Current Status: Good Progress Pt gisela well. Fatigue and tone (R) LE limiting factor. Good performance, good balance. PT Short Term Goals Short Term Goals Time Frame: Dec 07, 2019 Roll Left & Right: 4 Sit to lyin Lying to sitting on side of be: 3 Sit to stand: 2 Chair/rgx-zv-hqwtf transfer: 2 PT Longterm Goals Longterm Goals PT Major Account Manager Goals Time Frame: Dec 21, 2019 Roll Left & Right (QC): 6 Sit to Lying (QC): 4 Lying-Sitting on Side/Bed(QC): 4 Sit to Stand (QC): 3 Chair/Rlc-bd-Junuv Xfer(QC): 3 Toilet Transfer (QC): 3 Car Transfer (QC): 3 Does the Patient Walk: No and Walking Goal NOT indicated Walk 10 feet (QC): 88 Walk 50ft with 2 Turns (QC): 88 Walk 150 ft (QC): 88 Walking 10ft on Uneven Surface: 88 1 Step (curb) (QC): 88 4 Steps (QC): 88 12 Steps (QC): 88 Picking up an Object (QC): 88 Wheel 50 feet with 2 turns (QC: 6 Wheel 150 feet: 6 PT Plan Treatment/Plan Treatment Plan: Continue Plan of Care Treatment Plan: Bed Mobility, Education, Functional Activity [place], Functional Strength, Group Therapy, Gait, Safety, Therapeutic Exercise, Transfers Treatment Duration: Dec 21, 2019 Frequency: At least 5 of 7 days/Wk (IRF) Estimated Hrs Per Day: 1.5 hours per day Patient and/or Family Agrees t: Yes Time/GCodes Time In: 1050 Time Out: 1130 Total Billed Treatment Time: 40 Total Billed Treatment 1, gait x 30', ther ex x 10' LÓPEZ HAMILTON CPTA Dec 11, 2019 12:51
[2019-12-11 17:36] VITALS: BP 108/77
[2019-12-11] MEDS: ENOXAPARIN 40 MG/0.4 ML (LOVENOX) SYR SC SCH (20:20)
[2019-12-12 06:00] VITALS: BP 113/77
[2019-12-12 09:25] VITALS: BP 117/65
[2019-12-12 09:26] VITALS: BP 119/73
[2019-12-12] MEDS: SENNA W/DOCUSATE (SENOKOT S) TABLET PO SCH ×3 (09:27→19:54)
[2019-12-12] MEDS: ASPIRIN 81 MG CHEW (CHILDREN'S ASA) PO SCH (09:27)
[2019-12-12] MEDS: meTOproloL SUCCINATE 50 MG (TOPROL XL) TAB PO SCH (09:28)
[2019-12-12] MEDS: NAPROXEN 250 MG (NAPROSYN) TABLET PO SCH ×2 (09:28→18:23)
[2019-12-12] MEDS: DOCUSATE SODIUM 100 MG (COLACE) CAP PO SCH ×2 (09:30→19:53)
[2019-12-12] MEDS: polyethylene glycoL POWDER 17 GM (MIRALAX) PACK PO SCH ×2 (09:30→19:54)
--- NOTE | 2019-12-12 09:54 | NUR ---
Large green heel protector placed on Rt lower leg. Instr provided re: repositioning, prevention of pressure sores
--- NOTE | 2019-12-12 10:49 | PM&R Progress Note ---
Subjective HPI/CC On Admission Date Seen by Provider: Dec 12, 2019 Time Seen by Provider: 10:45 Subjective/Events-last exam 12/12/19: Patient doing well Naproxen doing well Checked med and labs 12/11/19: Can't go to wedding of son MERRITT 12/10/19 Barrier cream continued 12/10/19: Son gets tomorrow and due to COVID policy he will not be able to leave [facility] Loose stools holding laxatives No pain reported 12/09/19: No major issues No significant clinical status changes Left knee much improved with the Naproxen Overall feels like he is progressing nicely 12/08/19: Naproxen really helping the left knee pain Walked back and forth to the gym and really making some progress Loose stools will hold laxatives Check meds and labs 12/07/19: Continue Naproxen since it is helping his left knee pain Overall feels like he is gaining strength Bowels are moving well 12/06/19: Labs remain stable, Platelets at 621,000 Left knee better Standing with only one assist now Overall doing a lot better 12/05/19: Left knee pain improved Naproxen helpful No falls Feels rested up 12/04/19: BM moved 3 days ago so he took laxatives Left knee pain improved 12/03/19: Left knee is better Chronic right-sided weakness will be managed with therapy Fall risk prevention 12/02/19: Naproxen was started yesterday by Dr. Nash Still continues to talk about the left knee pain Bowels are moving pretty well X-ray of the left knee shows no fracture Sister at the bedside today Very talkative Left knee X-ray and Dr. Nash consult for left knee pain Bowels are moving well Eating and drinking well Checked meds and labs Conferred with RN Reviewed therapy notes Review of Systems General: Fatigue, Malaise Neurological: Weakness Objective Exam Vital Signs Vital Signs Date Time Temp Pulse Resp B/P (MAP) Pulse Ox O2 Delivery O2 Flow Rate FiO2 12/12/19 09:26 66 119/73 (88) 12/12/19 09:25 36.5 18 95 Room Air Capillary Refill : Less Than 3 Seconds General Appearance: No Apparent Distress, WD/WN, Chronically ill HEENT: PERRL/EOMI, Normal ENT Inspection, Pharynx Normal Neck: Full Range of Motion, Normal Inspection, Non Tender, Supple, Carotid Bruit Respiratory: Chest Non Tender, Lungs Clear, Normal Breath Sounds, No Accessory Muscle Use, No Respiratory Distress Cardiovascular: Regular Rate, Rhythm, No Edema, No Gallop, No JVD, No Murmur, Normal Peripheral Pulses Gastrointestinal: Normal Bowel Sounds, No Organomegaly, No Pulsatile Mass, Non Tender, Soft Back: Normal Inspection, No CVA Tenderness, No Vertebral Tenderness Extremity: Normal Capillary Refill, Normal Inspection, Normal Range of Motion, Non Tender, No Calf Tenderness, No Pedal Edema Neurologic/Psychiatric: Alert, Oriented x3, No Motor/Sensory Deficits, Normal Mood/Affect, religious assistant II-XII Norm as Tested, Abnormal Gait, Motor Weakness (3/5 legs) Skin: Normal Color, Warm/Dry Lymphatic: No Adenopathy Results/Procedures Lab Patient resulted labs reviewed. FIM Transfers Therapy Code Descriptions/Definitions Functional [place] Measure: 0=Not Assessed/NA 4=Minimal Assistance 1=Total Assistance 5=Supervision or Setup 2=Maximal Assistance 6=Modified [place] 3=Moderate Assistance 7=Complete IndependenceSCALE: Activities may be completed with or without assistive devices. 8-Bitdlljpyu-nmfakah completes the activity by him/herself with no assistance from a helper. 5-Set-up or Clean-up Assistance-helper sets up or cleans up; patient completes activity. [place] assists only prior to or following the activity. 4-Supervision or Touching Assistance-helper provides verbal cues and/or touching/steadying and/or contact guard assistance as patient completes activity. Assistance may be provided throughout the activity or intermittently. 3-Partial/Moderate Assistance-helper does LESS THAN HALF the effort. [place] lifts, holds or supports trunk or limbs, but provides less than half the effort. 2-Substantial/Maximal Assistance-helper does MORE THAN HALF the effort. [place] lifts or holds trunk or limbs and provides more than half the effort. 3-Piisoxbjp-iahtwh does ALL the effort. Patient does none of the effort to complete the activity. Or, the assistance of 2 or more helpers is required for the patient to complete the activity. If activity was not attempted, code reason: 7-Patient Refused. 9-Not Applicable-not attempted and the patient did not perform the activity before the current illness, exacerbation or injury. 10-Not Attempted due to Environmental Limitations-(lack of equipment, weather restraints, etc.). 88-Not Attempted due to Medical Conditions or Safety Concerns. Roll Left to Right (QC): 6 Sit to Lying (QC): 6 Sit to Stand (QC): 6 Chair/Izu-fd-Zxqut Xfer(QC): 5 Car Transfer (QC): 4 Gait Training Does the Patient Walk?: Yes Distance: 100' Walk 10 feet (QC): 4 Walk 50 ft with 2 Turns(QC): 4 Walk 150 ft (QC): 4 Walking 10ft/uneven surface-QC: 88 Gait Persons Needed: 1 Gait Assistive Device: FWW Wheelchair Training Does the Pt Use a Wheelchair?: Yes Distance: 150'x2 Wheel 50 ft with 2 turns (QC): 6 Wheel 150 ft (QC): 6 Type of Wheelchair: Manual Stair Training 1 Step (curb) (QC): 88 4 Steps (QC): 88 12 Steps (QC): 88 Balance Picking up an Object (QC): 88 ADL-Treatment Eating (QC): 6 Oral Hygiene (QC): 6 Bathing Location: L Arm, R Arm, L Upper Leg, R Upper Leg, L Lower Leg (inc luding foot), R Lower Leg (including foot), Chest, Abdomen, Buttocks, Perineal Area Shower/Bathe Self (QC): 4 (Supervision) Upper Body Dressing (QC): 5 Lower Body Dressing (QC): 4 (SBA) On/Off Footwear (QC): 5 Toileting Hygiene (QC): 4 Toilet Transfer (QC): 4 Assessment/Plan Assessment and Plan Assess & Plan/Chief Complaint Assessment: MS flare Fall s/p UTI New onset AF w/RVR Left knee pain Thrombocytosis Plan: Ortho consult IRF protocol Home meds BM regimen 12/01/19: Very talkative Consult Dr. Nash for left knee pain Bowels moving well Sister at bedside today 12/02/19: Continue Naproxen for left knee pain Bowels moving well Right side is still very weak 12/03/19: Continue left knee treatment Chronic right side weakness Fall prevention education 12/04/19: Naproxen BID Knee pain management 12/05/19: Maintain left knee pain management Falls still increased risk 12/06/19: Continue intensive therapy Naproxen for left knee pain Appreciate Dr. Nash 12/07/19: Continue Naproxen Bowel regimen good Discharge soon 12/08/19: Dramatic improvement Increase aggressive therapy with walking and fall prevention 12/09/19: Pain meds doing well BM regimen 12/10/19: Naproxen for left knee pain Monitor bowels 12/11/19: Monitor pain Naproxen Fall risk prevention 12/12/19: Monitor closely Naproxen Fall risk (1) Left knee pain (2) Atrial fibrillation (3) History of UTI (4) Fall (5) Multiple sclerosis GEORGI WATT DO Dec 12, 2019 10:49
[2019-12-12] MEDS ORDERED: DICLOFENAC 1% GEL 100 GM (VOLTAREN) TUBE TOP PRN (13:45)
[2019-12-12 17:45] VITALS: BP 123/79
[2019-12-12] MEDS: ENOXAPARIN 40 MG/0.4 ML (LOVENOX) SYR SC SCH (19:53)
--- NOTE | 2019-12-13 05:35 | PM&R Progress Note ---
Subjective HPI/CC On Admission Date Seen by Provider: Dec 13, 2019 Time Seen by Provider: 08:00 Subjective/Events-last exam 12/13/19: Labs are good Right leg weakness continues but fall prevention discussed Naproxen will be sent in to his pharmacy [place] planned for tomorrow 12/12/19: Patient doing well Naproxen doing well Checked med and labs 12/11/19: Can't go to wedding of son MERRITT 12/10/19 Barrier cream continued 12/10/19: Son gets tomorrow and due to COVID policy he will not be able to leave [facility] Loose stools holding laxatives No pain reported 12/09/19: No major issues No significant clinical status changes Left knee much improved with the Naproxen Overall feels like he is progressing nicely 12/08/19: Naproxen really helping the left knee pain Walked back and forth to the gym and really making some progress Loose stools will hold laxatives Check meds and labs 12/07/19: Continue Naproxen since it is helping his left knee pain Overall feels like he is gaining strength Bowels are moving well 12/06/19: Labs remain stable, Platelets at 621,000 Left knee better Standing with only one assist now Overall doing a lot better 12/05/19: Left knee pain improved Naproxen helpful No falls Feels rested up 12/04/19: BM moved 3 days ago so he took laxatives Left knee pain improved 12/03/19: Left knee is better Chronic right-sided weakness will be managed with therapy Fall risk prevention 12/02/19: Naproxen was started yesterday by Dr. Nash Still continues to talk about the left knee pain Bowels are moving pretty well X-ray of the left knee shows no fracture Sister at the bedside today Very talkative Left knee X-ray and Dr. Nash consult for left knee pain Bowels are moving well Eating and drinking well Checked meds and labs Conferred with RN Reviewed therapy notes Review of Systems General: Fatigue, Malaise Neurological: Weakness Objective Exam Vital Signs Vital Signs Date Time Temp Pulse Resp B/P (MAP) Pulse Ox O2 Delivery O2 Flow Rate FiO2 12/13/19 16:50 36.3 66 16 102/66 (78) 97 Room Air Capillary Refill : Less Than 3 Seconds General Appearance: No Apparent Distress, WD/WN, Chronically ill HEENT: PERRL/EOMI, Normal ENT Inspection, Pharynx Normal Neck: Full Range of Motion, Normal Inspection, Non Tender, Supple, Carotid Bruit Respiratory: Chest Non Tender, Lungs Clear, Normal Breath Sounds, No Accessory Muscle Use, No Respiratory Distress Cardiovascular: Regular Rate, Rhythm, No Edema, No Gallop, No JVD, No Murmur, Normal Peripheral Pulses Gastrointestinal: Normal Bowel Sounds, No Organomegaly, No Pulsatile Mass, Non Tender, Soft Back: Normal Inspection, No CVA Tenderness, No Vertebral Tenderness Extremity: Normal Capillary Refill, Normal Inspection, Normal Range of Motion, Non Tender, No Calf Tenderness, No Pedal Edema Neurologic/Psychiatric: Alert, Oriented x3, No Motor/Sensory Deficits, Normal M ood/Affect, road passenger firer II-XII Norm as Tested, Abnormal Gait, Motor Weakness (3/5 legs) Skin: Normal Color, Warm/Dry Lymphatic: No Adenopathy Results/Procedures Lab Laboratory Tests 12/13/19 05:05 Patient resulted labs reviewed. FIM Transfers Therapy Code Descriptions/Definitions Functional [place] Measure: 0=Not Assessed/NA 4=Minimal Assistance 1=Total Assistance 5=Supervision or Setup 2=Maximal Assistance 6=Modified [place] 3=Moderate Assistance 7=Complete IndependenceSCALE: Activities may be completed with or without assistive devices. 5-Xzrzootbvi-urtmktt completes the activity by him/herself with no assistance from a helper. 5-Set-up or Clean-up Assistance-helper sets up or cleans up; patient completes activity. [place] assists only prior to or following the activity. 4-Supervision or Touching Assistance-helper provides verbal cues and/or touching/steadying and/or contact guard assistance as patient completes activity. Assistance may be provided throughout the activity or intermittently. 3-Partial/Moderate Assistance-helper does LESS THAN HALF the effort. [place] lifts, holds or supports trunk or limbs, but provides less than half the effort. 2-Substantial/Maximal Assistance-helper does MORE THAN HALF the effort. [place] lifts or holds trunk or limbs and provides more than half the effort. 0-Ukbzmhsab-eztotj does ALL the effort. Patient does none of the effort to complete the activity. Or, the assistance of 2 or more helpers is required for the patient to complete the activity. If activity was not attempted, code reason: 7-Patient Refused. 9-Not Applicable-not attempted and the patient did not perform the activity before the current illness, exacerbation or injury. 10-Not Attempted due to Environmental Limitations-(lack of equipment, weather r estraints, etc.). 88-Not Attempted due to Medical Conditions or Safety Concerns. Roll Left to Right (QC): 6 Sit to Lying (QC): 6 Sit to Stand (QC): 6 Chair/Hmq-xb-Mlnsp Xfer(QC): 5 Car Transfer (QC): 4 Gait Training Does the Patient Walk?: Yes Distance: 100' Walk 10 feet (QC): 4 Walk 50 ft with 2 Turns(QC): 4 Walk 150 ft (QC): 4 Walking 10ft/uneven surface-QC: 88 Gait Persons Needed: 1 Gait Assistive Device: FWW Wheelchair Training Does the Pt Use a Wheelchair?: Yes Distance: 150'x2 Wheel 50 ft with 2 turns (QC): 6 Wheel 150 ft (QC): 6 Type of Wheelchair: Manual Stair Training 1 Step (curb) (QC): 88 4 Steps (QC): 88 12 Steps (QC): 88 Balance Picking up an Object (QC): 88 ADL-Treatment Eating (QC): 6 Oral Hygiene (QC): 6 Bathing Location: L Arm, R Arm, L Upper Leg, R Upper Leg, L Lower Leg (including foot), R Lower Leg (including foot), Chest, Abdomen, Buttocks, Perineal Area Shower/Bathe Self (QC): 4 (Supervision) Upper Body Dressing (QC): 5 Lower Body Dressing (QC): 4 (SBA) On/Off Footwear (QC): 5 Toileting Hygiene (QC): 4 Toilet Transfer (QC): 4 Assessment/Plan Assessment and Plan Assess & Plan/Chief Complaint Assessment: MS flare Fall s/p UTI New onset AF w/RVR Left knee pain Thrombocytosis Plan: Ortho consult IRF protocol Home meds BM regimen 12/01/19: Very talkative Consult Dr. Nash for left knee pain Bowels moving well Sister at bedside today 12/02/19: Continue Naproxen for left knee pain Bowels moving well Right side is still very weak 12/03/19: Continue left knee treatment Chronic right side weakness Fall prevention education 12/04/19: Naproxen BID Knee pain management 12/05/19: Maintain left knee pain management Falls still increased risk 12/06/19: Continue intensive therapy Naproxen for left knee pain Appreciate Dr. Nash 12/07/19: Continue Naproxen Bowel regimen good Discharge soon 12/08/19: Dramatic improvement Increase aggressive therapy with walking and fall prevention 12/09/19: Pain meds doing well BM regimen 12/10/19: Naproxen for left knee pain Monitor bowels 12/11/19: Monitor pain Naproxen Fall risk prevention 12/12/19: Monitor closely Naproxen Fall risk 12/13/19: Discharge is planned for tomorrow Will send in refill of Naproxen at discharge (1) Left knee pain (2) Atrial fibrillation (3) History of UTI (4) Fall (5) Multiple sclerosis GEORGI WATT DO Dec 13, 2019 05:34
[2019-12-13 05:43] LABS: BASOPHILS % (AUTO) 0 % (0-10); EOSINOPHILS # (AUTO) 0.5 10^3/uL (0.0-0.3); EOSINOPHILS % (AUTO) 10 % (0-10); HEMATOCRIT 44 % (40-54); HEMOGLOBIN 14.3 G/DL (13.3-17.7); LYMPHOCYTES % (AUTO) 42 % (12-44); MEAN CORPUSCULAR HEMOGLOBIN 30 PG (25-34); MEAN CORPUSCULAR HGB CONC 33 G/DL (32-36); MEAN CORPUSCULAR VOLUME 92 FL (80-99); MEAN PLATELET VOLUME 10.4 FL (7.4-10.4); MONOCYTES # (AUTO) 0.4 X 10^3 (0.0-1.0); MONOCYTES % (AUTO) 9 % (0-12); NEUTROPHILS # (AUTO) 1.8 X 10^3 (1.8-7.8); NEUTROPHILS % (AUTO) 39 % (42-75); PLATELET COUNT 330 10^3/uL (130-400); RED CELL DISTRIBUTION WIDTH 13.6 % (10.0-14.5); WHITE BLOOD COUNT 4.7 10^3/uL (4.3-11.0)
[2019-12-13 06:00] VITALS: BP 117/77
[2019-12-13 06:03] LABS: ALANINE AMINOTRANSFERASE 29 U/L (0-55); ALBUMIN 3.5 GM/DL (3.2-4.5); ALKALINE PHOSPHATASE 90 U/L (40-136); BILIRUBIN,TOTAL 0.2 MG/DL (0.1-1.0); BUN/CREATININE RATIO 18; CALCIUM 8.7 MG/DL (8.5-10.1); CARBON DIOXIDE 21 MMOL/L (21-32); CHLORIDE 109 MMOL/L (98-107); CREATININE SERUM 0.82 MG/DL (0.60-1.30); GFR ESTIMATED > 60; GLUCOSE 84 MG/DL (70-105); POTASSIUM 4.1 MMOL/L (3.6-5.0); SODIUM 142 MMOL/L (135-145); TOTAL PROTEIN 7.4 GM/DL (6.4-8.2)
--- NOTE | 2019-12-13 10:24 | Occupational Ther Daily Note ---
OT Current Status-Daily Note Subjective Pt seen in recliner. Sister present. Sister provides env of basement as pt will be living in basement upon d/c tomorrow. Pt denies pain Pt seen in recliner, agreeable to OT tx session. No pain stated. ADL-Treatment Therapy Code Descriptions/Definitions Functional [place] Measure: 0=Not Assessed/NA 4=Minimal Assistance 1=Total Assistance 5=Supervision or Setup 2=Maximal Assistance 6=Modified [place] 3=Moderate Assistance 7=Complete IndependenceSCALE: Activities may be completed with or without assistive devices. 0-Pqijqqwluh-egnocml completes the activity by him/herself with no assistance from a helper. 5-Set-up or Clean-up Assistance-helper sets up or cleans up; patient completes activity. [place] assists only prior to or following the activity. 4-Supervision or Touching Assistance-helper provides verbal cues and/or touching/steadying and/or contact guard assistance as patient completes activity. Assistance may be provided throughout the activity or intermittently. 3-Partial/Moderate Assistance-helper does LESS THAN HALF the effort. [place] lifts, holds or supports trunk or limbs, but provides less than half the effort. 2-Substantial/Maximal Assistance-helper does MORE THAN HALF the effort. [place] lifts or holds trunk or limbs and provides more than half the effort. 1-Svpbeiccp-psmgko does ALL the effort. Patient does none of the effort to complete the activity. Or, the assistance of 2 or more helpers is required for the patient to complete the activity. If activity was not attempted, code reason: 7-Patient Refused. 9-Not Applicable-not attempted and the patient did not perform the activity before the current illness, exacerbation or injury. 10-Not Attempted due to Environmental Limitations-(lack of equipment, weather restraints, etc.). 88-Not Attempted due to Medical Conditions or Safety Concerns. Eating (QC): 6 Oral Hygiene (QC): 6 (IND in w/c. ) Bathing Location: L Arm, R Arm, L Upper Leg, R Upper Leg, L Lower Leg (including foot), R Lower Leg (including foot), Chest, Abdomen, Buttocks, P erineal Area Shower/Bathe Self (QC): 4 (SUP showering, SBA in stance. ) Upper Body Dressing (QC): 6 Lower Body Dressing (QC): 4 (SBA in stance for hiking over hips. s/u for AE gathering. ) On/Off Footwear: 3 (min A this date for sock aide and RLE donning. ) Toileting Hygiene (QC): 4 (SBA in stance.) Toilet Transfer (QC): 4 (SBA during transfer.) Other Treatment Pt's sister provides plans for basement- shower still needing finishing as well as kitchenette. Pt will live in walk out basement upon d/c with sister living above. No stairs in/out. Small 2" step into walk in shower. Education provided to pt upon grab bar placement and sc use. Pt completes showering/ dressing in bathroom. Pt educated on safety in home shower, pt agrees he can bring w/c or chair to edge of shower for dressing tasks or placing clothing on so he does not need to get from shower without drying off. Pt nods in agreement. Pt pushes self to gym, completes 10 min arm bike ex for increased activity tolerance. Pt compl etes without break. Ambulates to EOM and completes UE ex with 5# weighted bar: biceps, shoulder flexion, and abdominal twists. Pt states he probably plans to drive at d/c. Pt educated on balance tasks and risks of falling, pt states son has agreed to drive him and pt educated on benefits of staying safe during this time. Pt agrees. Pt left with PT EOM end of session. Pt sit to stand with SBA at walker level, completing 15 min standing/ sitting exercises to address functional balance/ UE functional activity tolerance. Pt requires min cues, able to regulate energy level and state when break required. Pt sits when needed, continuing HEP. Pt stands for 5 min, 2x to complete UE ex with no LOB. Pt sits in recliner, denies toileting, all needs met. Education OT Patient Education: Correct positioning, Energy conservation, Exercise program, Home exercise program, Instructions to caregiver, Modified ADL techniques, Progress toward Goal/Update tx plan, Purpose of tx/functional activities, Safety issues, Transfer techniques, Use of adapted equipment Teaching Recipient: Patient Teaching Methods: Demonstration, Discussion Response to Teaching: Verbalize Understanding, Return Demonstration, Reinforcement Needed OT Short Term Goals Short Term Goals Toileting hygiene: 2 Lower body dressin OT Skilled Nursing Goals Forensic Accountant Goals Time Frame: Dec 14, 2019 Eating (QC): 6 Oral Hygiene (QC): 6 Toileting Hygiene (QC): 6 Shower/Bathe Self (QC): 6 Upper Body Dressing (QC): 6 Lower Body Dressing (QC): 6 On/Off Footwear (QC): 6 Additional Goals: 1-Demonstrate ADL Tasks, 2-Verbalize Understanding, 3- ImproveStrength/[place] 1=Demonstrate adherence to instructed precautions during ADL tasks. 2=Patient will verbalize/demonstrate understanding of assistive devices/modifications for ADL. 3=Patient will improve strength/tolerance for activity to enable patient to perform ADL's. OT Education/Plan Problem List/Assessment Assessment: Decreased Activ Tolerance, Decreased UE Strength, Dependent Transfe rs, Impaired Funct Balance, Impaired I ADL's, Impaired Self-Care Skills Discharge Recommendations Plan/Recommendations: Continue POC Therapy Discharge Recommendati: Intermittent Supervision, Home & Family Equpiment Recommendations-D/C: Bath Chair, Hip Kit Treatment Plan/Plan of Care Treatment,Training & Education: Yes Patient would benefit from OT for education, treatment and training to promote i ndependence in ADL's, mobility, safety and/or upper extremity function for ADL's. Plan of Care: ADL Retraining, Caregiver Training, Cognitive Retraining, Concurrent Therapy, Functional Mobility, Group Exercise/Act as Ind, UE Funct Exe rcise/Act, W/C Management Training Treatment Duration: Dec 14, 2019 Frequency: At least 5 of 7 days/Wk (IRF) Estimated Hrs Per Day: 1.5 hours per day Agreement: Yes Rehab Potential: Fair Time/GCodes Start Time: 09:00 (1330) Stop Time: 10:00 (1345) Total Time Billed (hr/min): 75 Billed Treatment Time 1, ADL 2, EX, FA (60) 1, EX (15) Total: 75 MAYKEL LUCAS OTR Dec 13, 2019 10:24
[2019-12-13] MEDS: ASPIRIN 81 MG CHEW (CHILDREN'S ASA) PO SCH (10:56)
[2019-12-13] MEDS: meTOproloL SUCCINATE 50 MG (TOPROL XL) TAB PO SCH (10:57)
[2019-12-13] MEDS: NAPROXEN 250 MG (NAPROSYN) TABLET PO SCH ×2 (10:57→18:07)
[2019-12-13] MEDS: polyethylene glycoL POWDER 17 GM (MIRALAX) PACK PO SCH ×2 (10:58→19:41)
[2019-12-13] MEDS: DOCUSATE SODIUM 100 MG (COLACE) CAP PO SCH ×2 (10:58→19:40)
[2019-12-13] MEDS: SENNA W/DOCUSATE (SENOKOT S) TABLET PO SCH ×2 (10:58→19:41)
--- NOTE | 2019-12-13 11:04 | Physical Therapy Daily Note ---
PT Daily Note-Current Subjective Pt. agrees to Rx. Describes his situation at home as he lives with this sister in basement living quarters. Pt. describes how he was going up and down 12 steps with no rails in her home ( ascending facing steps and descending facing steps) . Pt. also states he has been driving the past 6 mos. using a cane with his right hand to depress the accelerator and his left foot on the brake. This AGRICULTURE RESEARCH DIRECTOR sharing that this is very unsafe and he should not drive . Pain Numeric Pain Scale: 2 Location: Medial Location Body Site: Back Pain Description: Ache Comment: in supine flat position Mental Status Patient Orientation: Person, Place, Time, Situation pt.needs extra explanation at times for safety as he seems not to see situations as unsafe etc Transfers SCALE: Activities may be completed with or without assistive devices. 7-Gczaepdurd-ftxntcd completes the activity by him/herself with no assistance from a helper. 5-Set-up or Clean-up Assistance-helper sets up or cleans up; patient completes activity. [place] assists only prior to or following the activity. 4-Supervision or Touching Assistance-helper provides verbal cues and/or touching/steadying and/or contact guard assistance as patient completes activity. Assistance may be provided throughout the activity or intermittently. 3-Partial/Moderate Assistance-helper does LESS THAN HALF the effort. [place] lifts, holds or supports trunk or limbs, but provides less than half the effort. 2-Substantial/Maximal Assistance-helper does MORE THAN HALF the effort. [place] lifts or holds trunk or limbs and provides more than half the effort. 8-Kjgikrjzo-kjxhym does ALL the effort. Patient does none of the effort to complete the activity. Or, the assistance of 2 or more helpers is required for the patient to complete the activity. If activity was not attempted, code reason: 7-Patient Refused. 9-Not Applicable-not attempted and the patient did not perform the activity before the current illness, exacerbation or injury. 10-Not Attempted due to Environmental Limitations-(lack of equipment, weather restraints, etc.). 88-Not Attempted due to Medical Conditions or Safety Concerns. Roll Left & Right (QC): 6 Sit to Lying (QC): 6 Lying to Sitting/Side of Bed(Q: 6 Sit to Stand (QC): 6 Chair/Fkz-wq-Mcnzb Xfer(QC): 6 Car Transfer (QC): 6 sup to sit and sit top sup require full effort of pt. Moaning and working very hard. Rolling to side to attempt sup to sit was explained x2 with pt. accomplishing sitting edge of bed then but with considerable effort Weight Bearing Right Lower Extremity: Right Full Weight Bearing Left Lower Extremity: Left Full Weight Bearing Gait Training Does the Patient Walk?: Yes Walk 10 feet (QC): 5 Walk 50 ft with 2 Turns(QC): 5 Walk 150 ft (QC): 88 Walking 10ft/uneven surface-QC: 4 Gait Persons Needed: 1 Gait Assistive Device: FWW pt. fatigued after about 60ft with R foot and toes dragging and unsafe Wheelchair Training Does the Pt Use a Wheelchair?: Yes Wheel 50 ft with 2 turns (QC): 6 Wheel 150 ft (QC): 6 Type of Wheelchair: Manual this is the safest mode of mobility for pt. , as fatigue and poor control of right foot DF limits right foot clearance, pt. manages brakes and swinging leg rests indep given time Stair Training Stair Training: Handrails/: uses walker #of Steps: 1 1 Step (curb) (QC): 3 4 Steps (QC): 88 12 Steps (QC): 88 Stairs: Pattern: Step to pt. ascended one step initiating with up with right foot and down with left , pts right toe catching on step as he cannot DF requiring min assist for balance and safety Balance Picking up an Object (QC): 88 Exercises Supine Ex: Bridging, Rolling, Heel Slides, Hip abd/add Supine Reps: 10 Seated Therapy Exercises: Ankle pumps, Sit to stand, Long arc quads, Hip flexion, Hip abd/add Seated Reps: 12 Assessment Current Status: Good Progress pt. has gained mobility as he initially was TRFd using sit to stand and now stand and TRFs SBA as left knee is much improved. However pt. is at risk for falls and hopefully will always enter his sisters home at back entrance with 0 stairs to manage and will not consider driving PT Short Term Goals Short Term Goals Time Frame: Dec 07, 2019 Roll Left & Right: 4 Sit to lyin Lying to sitting on side of be: 3 Sit to stand: 2 Chair/jdv-za-mmvke transfer: 2 PT [facility] Goals Automatic Cigar Wrapper Tender Goals PT Automatic Cigar Wrapper Tender Goals Time Frame: Dec 21, 2019 Roll Left & Right (QC): 6 Sit to Lying (QC): 4 Lying-Sitting on Side/Bed(QC): 4 Sit to Stand (QC): 3 Chair/Rqh-un-Vbhtw Xfer(QC): 3 Toilet Transfer (QC): 3 Car Transfer (QC): 3 Does the Patient Walk: No and Walking Goal NOT indicated Walk 10 feet (QC): 88 Walk 50ft with 2 Turns (QC): 88 Walk 150 ft (QC): 88 Walking 10ft on Uneven Surface: 88 1 Step (curb) (QC): 88 4 Steps (QC): 88 12 Steps (QC): 88 Picking up an Object (QC): 88 Wheel 50 feet with 2 turns (QC: 6 Wheel 150 feet: 6 PT Plan Treatment/Plan Treatment Plan: Continue Plan of Care Treatment Plan: Bed Mobility, Education, Functional Activity [place], Functional Strength, Group Therapy, Gait, Safety, Therapeutic Exercise, Transfers Treatment Duration: Dec 21, 2019 Frequency: At least 5 of 7 days/Wk (IRF) Estimated Hrs Per Day: 1.5 hours per day Patient and/or Family Agrees t: Yes Safety Risks/Education Patient Education: Gait Training, Transfer Techniques, Steps, Correct Positioning, W/C Management, Disease Process, Safety Issues Teaching Recipient: Patient Teaching Methods: Demonstration, Discussion Response to Teaching: Verbalize Understanding, Return Demonstration, Reinforcement Needed Time/GCodes Time In: 1005 Time Out: 1105 Total Billed Treatment Time: 60 Total Billed Treatment 1,FA35m,EX10m,GT15m FOSTER INFANTE PTA Dec 13, 2019 11:04
--- NOTE | 2019-12-13 13:25 | Speech Therapy Daily Note ---
Speech Daily Progress Note Subjective Date Seen by Provider: Dec 13, 2019 Time Seen by Provider: 00:30 Patient was resting in his recliner following his return from PT. Patient states he is ready to go home tomorrow. Objective Patient completed memory tasks related to his daily needs upon his return home with 90% without cues. Assessment Assessment Current Status: Good Progress Treatment Plan Discontinue ST, Goals Met Speech Short Term Goals Short Term Goals Short Term Goals 1) The patient will complete memory tasks related to his daily needs at 90% or greater with minimal cues. 2) The patient will complete safety awareness tasks related to his daily needs at 90% or greater with minimal cues. 3) The patient will complete problem solving tasks related to his daily needs at 90% or greater with minimal cues. Speech Skilled Nursing Goals Skilled Nursing Goals Patient will improve cognitive-communication necessary for safety and daily living tasks with minimal assist. Speech-Plan Patient/Family Goals Patient/Family Goals: Patient is discharging tomorrow to his home where he lives with his sister. Treatment Plan Speech Therapy Treatment Plan: Discontinue ST, Goals Met Treatment Duration: Dec 10, 2019 Frequency: 4 times per week (Patient will receive skilled ST 4-5x per week) Estimated Hrs Per Day: .5 hour per day Rehab Potential: Fair Barriers to Learning: Patient's recent decline in function Pt/Family Agrees to Plan: Yes Safety Risks/Education Teaching Recipient: Patient Teaching Methods: Demonstration, Discussion Response to Teaching: Verbalize Understanding, Return Demonstration Education Topics Provided: Safety upon his discharge to home Time Speech Therapy Time In: 11:00 Speech Therapy Time Out: 11:30 Total Billed Time: 30 Billed Treatment Time 1, SLTS No QUALITY CODES EXPRESSION OF IDEAS/WANTS: 4 UNDERSTANDING VERBAL CONTENT: 4 BRIEF INTERVIEW MENTAL STATUS: YES REPETITION OF 3 WORDS: 3 TEMPORAL ORIENTATION: YEAR: CORRECT, MONTH: CORRECT, DAY: CORRECT RECALL SOCK: YES, COLOR: YES, BED: YES MEMORY/RECALL ABILITY: SEASON, LOCATION OF HIS ROOM, STAFF NAMES AND THAT HE IS IN THE [facility] Dec 13, 2019 13:25
--- NOTE | 2019-12-13 15:14 | Physical Therapy Daily Note ---
PT Daily Note-Current Subjective Pt presents sitting up in chair, agreeable to therapy at this time. No reports of pain during session Mental Status Patient Orientation: Person, Place, Situation Transfers SCALE: Activities may be completed with or without assistive devices. 7-Lyuvrbklau-ywcabvi completes the activity by him/herself with no assistance from a helper. 5-Set-up or Clean-up Assistance-helper sets up or cleans up; patient completes activity. [place] assists only prior to or following the activity. 4-Supervision or Touching Assistance-helper provides verbal cues and/or touching/steadying and/or contact guard assistance as patient completes acti vity. Assistance may be provided throughout the activity or intermittently. 3-Partial/Moderate Assistance-helper does LESS THAN HALF the effort. [place] lifts, holds or supports trunk or limbs, but provides less than half the effort. 2-Substantial/Maximal Assistance-helper does MORE THAN HALF the effort. [place] lifts or holds trunk or limbs and provides more than half the effort. 2-Crgdzocdw-cvrkrk does ALL the effort. Patient does none of the effort to complete the activity. Or, the assistance of 2 or more helpers is required for the patient to complete the activity. If activity was not attempted, code reason: 7-Patient Refused. 9-Not Applicable-not attempted and the patient did not perform the activity before the current illness, exacerbation or injury. 10-Not Attempted due to Environmental Limitations-(lack of equipment, weather restraints, etc.). 88-Not Attempted due to Medical Conditions or Safety Concerns. Weight Bearing Right Lower Extremity: Right Full Weight Bearing Left Lower Extremity: Left Full Weight Bearing Exercises Seated Therapy Exercises: Ankle pumps, Long arc quads, Hip flexion, Hip abd/add Seated Reps: 20 Neuromuscular Pt completed seated exercises well, needing encouragement to complete repetitions, as he is easily distracted. Pt requires min A to complete RLE LAQ and marching, uses his own hands to help these movements as well. Pt has significantly decreased active DF ROM. Assessment Current Status: Fair Progress Pt with good effort this session, requires cueing to complete all repetitions of exercises as he can be easily distracted. Will continue to progress pt as tolerated. PT Short Term Goals Short Term Goals Time Frame: Dec 07, 2019 Roll Left & Right: 4 Sit to lyin Lying to sitting on side of be: 3 Sit to stand: 2 Chair/keh-cl-jeorm transfer: 2 PT Supervisor Dock Goals Supervisor Dock Goals PT Supervisor Dock Goals Time Frame: Dec 21, 2019 Roll Left & Right (QC): 6 Sit to Lying (QC): 4 Lying-Sitting on Side/Bed(QC): 4 Sit to Stand (QC): 3 Chair/Aqj-wi-Uinty Xfer(QC): 3 Toilet Transfer (QC): 3 Car Transfer (QC): 3 Does the Patient Walk: No and Walking Goal NOT indicated Walk 10 feet (QC): 88 Walk 50ft with 2 Turns (QC): 88 Walk 150 ft (QC): 88 Walking 10ft on Uneven Surface: 88 1 Step (curb) (QC): 88 4 Steps (QC): 88 12 Steps (QC): 88 Picking up an Object (QC): 88 Wheel 50 feet with 2 turns (QC: 6 Wheel 150 feet: 6 PT Plan Problem List Problem List: Activity Tolerance, Functional Strength, Safety, Balance, Gait, Transfer, Bed Mobility, ROM Treatment/Plan Treatment Plan: Continue Plan of Care Treatment Plan: Bed Mobility, Education, Functional Activity [place], Functional Strength, Group Therapy, Gait, Safety, Therapeutic Exercise, Transfers Treatment Duration: Dec 21, 2019 Frequency: At least 5 of 7 days/Wk (IRF) Estimated Hrs Per Day: 1.5 hours per day Patient and/or Family Agrees t: Yes Time/GCodes Time In: 1445 Time Out: 1605 Total Billed Treatment 1 visit EX (20') MOUSTAPHA ELIZABETH PT Dec 13, 2019 15:14
--- NOTE | 2019-12-13 16:31 | NUR ---
CM/SS CONCURRENT DOCUMENTATION Visited with patient's sister Allyssa Nguyen about his discharge tomorrow to inquire whether she had any questions. She stated patient has a Navigator through [facility] and that she/sister was also an approved salesperson driver. Allyssa said she was trying to facilitate patient getting his specific MS Rx and that the doctor had signed on the application form but that she needed something on his office letterhead or script to send with it. Dump Grader encouraged her to go to PCP Dr. Henderson today to get a script on a stationary pad or something meeting the requirement and to get that sent in. Additionally, she indicates that [facility] is ready to provide funding to assist with DME, they have been trying to get a hospital bed. Dump Grader tried multiple times to call [facility] to reach navigator, all lines went in a cycle without any live person to answer. Dump Grader then sent emails to both addresses offered and had one reply but then without follow through for any helpful update. DME for discharge will have to be from [facility] due to uninsured status. Dump Grader inquired early today whether they had wheelchair and FWW for patient height/weight, no confirmation thus far. HHC: Confirmed with [facility] to begin services Friday, RN PT OT. PD Waiver to be completed prior to patient discharge and provided for [employer] processing.
[2019-12-13 16:50] VITALS: BP 102/66
[2019-12-13] MEDS: ENOXAPARIN 40 MG/0.4 ML (LOVENOX) SYR SC SCH (20:20)
[2019-12-13] MEDS ORDERED: ASPI-999 PO (20:32)
[2019-12-13] MEDS ORDERED: DILT180C85 PO (20:32)
[2019-12-13] MEDS ORDERED: NAPR250T6 PO (20:32)
[2019-12-13] MEDS ORDERED: METO50TA7 PO (20:32)
--- NOTE | 2019-12-13 20:33 | D/C HH Face to Face Order ---
D/C Face to Face Orders Reconcile Patient Problems Problems Reviewed?: Yes Instructions for Patient Via [facility], Patient Instructions/FollowUp: Dr Camacho 1 week Physician to follow Patient: Doug Discharge Diet for Home: No Restrictions Patient Problems: Fall MS AF Goals for Patient: [place] Patient Data-Allergies,Ht & Wt Patient Allergies: Coded Allergies: Penicillins (Verified Allergy, Unknown, rash, 11/30/19) Home Health Need/Face to Face Date of Face to Face: Dec 13, 2019 Clinical Findings: Generalized weakness and fatigue, Instability, Muscle weakness, Unsteady gait I have seen Pt xelr-sm-wfhi: Yes Discharged To: Home Diagnosis/Conditions: Fall MS AF Patient is Homebound due to: [place] fall risk due to instabilty, Muscle weakness Homebound Status Due to the above stated illness, injury or surgical procedure (medical condition or diagnosis) and associated clinical findings, the patient is homebound because of his/her inability to leave home except with aid of a supportive device and/or person AND leaving the home requires a considerable and taxing effort or is medically contraindicated. Pt req the following assistanc: Walker Home Health Nursing Orders Home Health Services Order: Nursing Services, Cylinder Checker-Evaluate & Treat, Physical Therapy-Evaluate & Treat Certify Stmt I certify that this patient is under my care and that I, a nurse practitioner or a physician; a electrical assistant working with me, had a face to face encounter that - meets the physician face to face encounter requirements with this patient as dated. GEORGI WATT DO Dec 13, 2019 20:33
[2019-12-14 05:29] VITALS: BP 113/59
--- NOTE | 2019-12-14 08:41 | PM&R Progress Note ---
Subjective Subjective/Events-last exam 12/13/19: Labs are good Right leg weakness continues but fall prevention discussed Naproxen will be sent in to his pharmacy for a short course at [facility] planned for tomorrow 12/12/19: Patient doing well Naproxen doing well Checked med and labs 12/11/19: Can't go to wedding of son MERRITT 12/10/19 Barrier cream continued 12/10/19: Son gets tomorrow and due to COVID policy he will not be able to leave [facility] Loose stools holding laxatives No pain reported 12/09/19: No major issues No significant clinical status changes Left knee much improved with the Naproxen Overall feels like he is progressing nicely 12/08/19: Naproxen really helping the left knee pain Walked back and forth to the gym and really making some progress Loose stools will hold laxatives Check meds and labs 12/07/19: Continue Naproxen since it is helping his left knee pain Overall feels like he is gaining strength Bowels are moving well 12/06/19: Labs remain stable, Platelets at 621,000 Left knee better Standing with only one assist now Overall doing a lot better 12/05/19: Left knee pain improved Naproxen helpful No falls Feels rested up 12/04/19: BM moved 3 days ago so he took laxatives Left knee pain improved 12/03/19: Left knee is better Chronic right-sided weakness will be managed with therapy Fall risk prevention 12/02/19: Naproxen was started yesterday by Dr. Nash Still continues to talk about the left knee pain Bowels are moving pretty well X-ray of the left knee shows no fracture Sister at the bedside today Very talkative Left knee X-ray and Dr. Nash consult for left knee pain Bowels are moving well Eating and drinking well Checked meds and labs Conferred with RN Reviewed therapy notes Objective Exam Vital Signs Vital Signs Date Time Temp Pulse Resp B/P (MAP) Pulse Ox O2 Delivery O2 Flow Rate FiO2 12/14/19 05:29 36.3 77 20 113/59 (77) 96 Room Air Capillary Refill : Less Than 3 Seconds General Appearance: No Apparent Distress, WD/WN, Chronically ill HEENT: PERRL/EOMI, Normal ENT Inspection, Pharynx Normal Neck: Full Range of Motion, Normal Inspection, Non Tender, Supple, Carotid Bruit Respiratory: Chest Non Tender, Lungs Clear, Normal Breath Sounds, No Accessory Muscle Use, No Respiratory Distress Cardiovascular: Regular Rate, Rhythm, No Edema, No Gallop, No JVD, No Murmur, N ormal Peripheral Pulses Gastrointestinal: Normal Bowel Sounds, No Organomegaly, No Pulsatile Mass, Non Tender, Soft Back: Normal Inspection, No CVA Tenderness, No Vertebral Tenderness Extremity: Normal Capillary Refill, Normal Inspection, Normal Range of Motion, Non Tender, No Calf Tenderness, No Pedal Edema Neurologic/Psychiatric: Alert, Oriented x3, No Motor/Sensory Deficits, Normal Mood/Affect, customer account coordinator II-XII Norm as Tested, Abnormal Gait, Motor Weakness (3/5 legs) Skin: Normal Color, Warm/Dry Lymphatic: No Adenopathy Results/Procedures Lab Patient resulted labs reviewed. FIM Transfers Therapy Code Descriptions/Definitions Functional [place] Measure: 0=Not Assessed/NA 4=Minimal Assistance 1=Total Assistance 5=Supervision or Setup 2=Maximal Assistance 6=Modified [place] 3=Moderate Assistance 7=Complete IndependenceSCALE: Activities may be completed with or without assistive devices. 1-Vgtpqomgph-puqzrqf completes the activity by him/herself with no assistance from a helper. 5-Set-up or Clean-up Assistance-helper sets up or cleans up; patient completes activity. [place] assists only prior to or following the activity. 4-Supervision or Touching Assistance-helper provides verbal cues and/or touching/steadying and/or contact guard assistance as patient completes activity. Assistance may be provided throughout the activity or intermittently. 3-Partial/Moderate Assistance-helper does LESS THAN HALF the effort. [place] lifts, holds or supports trunk or limbs, but provides less than half the effort. 2-Substantial/Maximal Assistance-helper does MORE THAN HALF the effort. [place] lifts or holds trunk or limbs and provides more than half the effort. 8-Dlgbzthyp-djccsr does ALL the effort. Patient does none of the effort to complete the activity. Or, the assistance of 2 or more helpers is required for the patient to complete the activity. If activity was not attempted, code reason: 7-Patient Refused. 9-Not Applicable-not attempted and the patient did not perform the activity before the current illness, exacerbation or injury. 10-Not Attempted due to Environmental Limitations-(lack of equipment, weather restraints, etc.). 88-Not Attempted due to Medical Conditions or Safety Concerns. Roll Left to Right (QC): 6 Sit to Lying (QC): 6 Sit to Stand (QC): 6 Chair/Qus-kq-Qwtme Xfer(QC): 6 Car Transfer (QC): 6 Gait Training Does the Patient Walk?: Yes Distance: 100' Walk 10 feet (QC): 5 Walk 50 ft with 2 Turns(QC): 5 Walk 150 ft (QC): 88 Walking 10ft/uneven surface-QC: 4 Gait Persons Needed: 1 Gait Assistive Device: FWW Wheelchair Training Does the Pt Use a Wheelchair?: Yes Distance: 150'x2 Wheel 50 ft with 2 turns (QC): 6 Wheel 150 ft (QC): 6 Type of Wheelchair: Manual Stair Training Stair Training: Handrails/: uses walker #of Steps: 1 1 Step (curb) (QC): 3 4 Steps (QC): 88 12 Steps (QC): 88 Stairs: Pattern: Step to Balance Picking up an Object (QC): 88 ADL-Treatment Eating (QC): 6 Oral Hygiene (QC): 6 (IND in w/c. ) Bathing Location: L Arm, R Arm, L Upper Leg, R Upper Leg, L Lower Leg (including foot), R Lower Leg (including foot), Chest, Abdomen, Buttocks, Perineal Area Shower/Bathe Self (QC): 4 (SUP showering, SBA in stance. ) Upper Body Dressing (QC): 6 Lower Body Dressing (QC): 4 (SBA in stance for hiking over hips. s/u for AE gathering. ) On/Off Footwear (QC): 3 (min A this date for sock aide and RLE donning. ) Toileting Hygiene (QC): 4 (SBA in stance.) Toilet Transfer (QC): 4 (SBA during transfer.) Assessment/Plan Assessment and Plan Assess & Plan/Chief Complaint Assessment: MS flare Fall s/p UTI New onset AF w/RVR Left knee pain Thrombocytosis Plan: Ortho consult IRF protocol Home meds BM regimen 12/01/19: Very talkative Consult Dr. Nash for left knee pain Bowels moving well Sister at bedside today 12/02/19: Continue Naproxen for left knee pain Bowels moving well Right side is still very weak 12/03/19: Continue left knee treatment Chronic right side weakness Fall prevention education 12/04/19: Naproxen BID Knee pain management 12/05/19: Maintain left knee pain management Falls still increased risk 12/06/19: Continue intensive therapy Naproxen for left knee pain Appreciate Dr. Nash 12/07/19: Continue Naproxen Bowel regimen good Discharge soon 12/08/19: Dramatic improvement Increase aggressive therapy with walking and fall prevention 12/09/19: Pain meds doing well BM regimen 12/10/19: Naproxen for left knee pain Monitor bowels 12/11/19: Monitor pain Naproxen Fall risk prevention 12/12/19: Monitor closely Naproxen Fall risk 12/13/19: Discharge is planned for tomorrow Will send in refill of Naproxen at discharge (1) Left knee pain (2) Atrial fibrillation (3) History of UTI (4) Fall (5) Multiple sclerosis GEORGI WATT DO Dec 14, 2019 08:41
--- NOTE | 2019-12-14 08:46 | Discharge Summary ---
Diagnosis/Chief Complaint Date of Admission Nov 30, 2019 at 13:21 Date of Discharge Discharge Date: Dec 14, 2019 Discharge Diagnosis Assessment: MS flare Fall s/p UTI New onset AF w/RVR Left knee pain Thrombocytosis Plan: Ortho consult IRF protocol Home meds BM regimen 12/01/19: Very talkative Consult Dr. Nash for left knee pain Bowels moving well Sister at bedside today 12/02/19: Continue Naproxen for left knee pain Bowels moving well Right side is still very weak 12/03/19: Continue left knee treatment Chronic right side weakness Fall prevention education 12/04/19: Naproxen BID Knee pain management 12/05/19: Maintain left knee pain management Falls still increased risk 12/06/19: Continue intensive therapy Naproxen for left knee pain Appreciate Dr. Nash 12/07/19: Continue Naproxen Bowel regimen good Discharge soon 12/08/19: Dramatic improvement Increase aggressive therapy with walking and fall prevention 12/09/19: Pain meds doing well BM regimen 12/10/19: Naproxen for left knee pain Monitor bowels 12/11/19: Monitor pain Naproxen Fall risk prevention 12/12/19: Monitor closely Naproxen Fall risk 12/13/19: Discharge is planned for tomorrow Will send in refill of Naproxen at discharge Discharge Summary Discharge Physical Examination Allergies: Coded Allergies: Penicillins (Verified Allergy, Unknown, rash, 11/30/19) Vitals & I&Os Vital Signs Date Time Temp Pulse Resp B/P (MAP) Pulse Ox O2 Delivery O2 Flow Rate FiO2 12/14/19 16:10 36.3 77 20 113/59 96 Room Air General Appearance: Alert, Oriented X3 Respiratory: Normal Air Movement Cardiovascular: Regular Rate Neuro: Normal Speech Psych/Mental Status: Mental Status NL Hospital Course Was the Problem List Reviewed?: Yes Hospital course: Pt had a lengthy two week hospital course after he was admitted for multiple sclerosis flare-up with right-sided weakness and a fall, found down after 3 days at home. Left knee pain improved with Naproxen, after Dr. Nash evaluated him. Pt did participate in all therapy, labs remained stable, bowels returned back to normal and overall he did very well with therapy and was able to to walk with a walker, home health was arranged and he was able to be discharged in improved condition. Labs (last 24 hrs) Laboratory Tests 12/01/19 04:29: White Blood Count 9.9, Red Blood Count 4.32L, Hemoglobin 13.0L, Hematocrit 39L, Mean Corpuscular Volume 91, Mean Corpuscular Hemoglobin 30, Mean Corpuscular Hemoglobin Concent 33, Red Cell Distribution Width 12.9, Platelet Count 616H, Mean Platelet Volume 9.9, Neutrophils (%) (Auto) 62, Lymphocytes (%) (Auto) 24, Monocytes (%) (Auto) 12, Eosinophils (%) (Auto) 3, Basophils (%) (Auto) 0, Neutrophils # (Auto) 6.1, Lymphocytes # (Auto) 2.4, Monocytes # (Auto) 1.2H, Eosinophils # (Auto) 0.3, Basophils # (Auto) 0.0, Neutrophils % (Manual) 63, Lymphocytes % (Manual) 20, Monocytes % (Manual) 10, Eosinophils % (Manual) 2, Reactive Lymphocytes 5, Sodium Level 137, Potassium Level 4.3, Chloride Level 105, Carbon Dioxide Level 24, Anion Gap 8, Blood Urea Nitrogen 15, Creatinine 0.83, Estimat Glomerular Filtration Rate > 60, BUN/Creatinine Ratio 18, Glucose Level 96, Calcium Level 8.6, Corrected Calcium 9.2, Total Bilirubin 0.5, Aspartate Amino Transf (AST/SGOT) 34, Alanine Aminotransferase (ALT/SGPT) 57H, Alkaline Phosphatase 94, Total Protein 7.7, Albumin 3.2 12/06/19 05:08: White Blood Count 6.5, Red Blood Count 4.74, Hemoglobin 14.2, Hematocrit 44, Mean Corpuscular Volume 92, Mean Corpuscular Hemoglobin 30, Mean Corpuscular Hemoglobin Concent 33, Red Cell Distribution Width 12.9, Platelet Count 621H, Mean Platelet Volume 9.5, Neutrophils (%) (Auto) 53, Lymphocytes (%) (Auto) 33, Monocytes (%) (Auto) 9, Eosinophils (%) (Auto) 4, Basophils (%) (Auto) 0, Neutrophils # (Auto) 3.4, Lymphocytes # (Auto) 2.2, Monocytes # (Auto) 0.6, Eosinophils # (Auto) 0.3, Basophils # (Auto) 0.0, Sodium Level 141, Potassium Level 4.2, Chloride Level 106, Carbon Dioxide Level 27, Anion Gap 8, Blood Urea Nitrogen 18, Creatinine 0.94, Estimat Glomerular Filtration Rate > 60, BUN/Creatinine Ratio 19, Glucose Level 86, Calcium Level 9.3, Corrected Calcium 9.7, Total Bilirubin 0.2, Aspartate Amino Transf (AST/SGOT) 25, Alanine Aminotransferase (ALT/SGPT) 47, Alkaline Phosphatase 88, Total Protein 7.9, Albumin 3.5 12/13/19 05:05: White Blood Count 4.7, Red Blood Count 4.78, Hemoglobin 14.3, Hematocrit 44, Mean Corpuscular Volume 92, Mean Corpuscular Hemoglobin 30, Mean Corpuscular Hemoglobin Concent 33, Red Cell Distribution Width 13.6, Platelet Count 330, Mean Platelet Volume 10.4, Neutrophils (%) (Auto) 39L, Lymphocytes (%) (Auto) 42, Monocytes (%) (Auto) 9, Eosinophils (%) (Auto) 10, Basophils (%) (Auto) 0, Neutrophils # (Auto) 1.8, Lymphocytes # (Auto) 2.0, Monocytes # (Auto) 0.4, Eosinophils # (Auto) 0.5H, Basophils # (Auto) 0.0, Sodium Level 142, Potassium Level 4.1, Chloride Level 109H, Carbon Dioxide Level 21, Anion Gap 12, Blood Urea Nitrogen 15, Creatinine 0.82, Estimat Glomerular Filtration Rate > 60, BUN/Creatinine Ratio 18, Glucose Level 84, Calcium Level 8.7, Corrected Calcium 9.1, Total Bilirubin 0.2, Aspartate Amino Transf (AST/SGOT) 19, Alanine Aminotransferase (ALT/SGPT) 29, Alkaline Phosphatase 90, Total Protein 7.4, Albumin 3.5 Pending Labs Laboratory Tests 12/01/19 04:29: White Blood Count 9.9, Red Blood Count 4.32, Hemoglobin 13.0, Hematocrit 39, Mean Corpuscular Volume 91, Mean Corpuscular Hemoglobin 30, Mean Corpuscular Hemoglobin Concent 33, Red Cell Distribution Width 12.9, Platelet Count 616, Mean Platelet Volume 9.9, Neutrophils (%) (Auto) 62, Lymphocytes (%) (Auto) 24, Monocytes (%) (Auto) 12, Eosinophils (%) (Auto) 3, Basophils (%) (Auto) 0, Neutrophils # (Auto) 6.1, Lymphocytes # (Auto) 2.4, Monocytes # (Auto) 1.2, Eosinophils # (Auto) 0.3, Basophils # (Auto) 0.0, Neutrophils % (Manual) 63, Lymphocytes % (Manual) 20, Monocytes % (Manual) 10, Eosinophils % (Manual) 2, Reactive Lymphocytes 5, Sodium Level 137, Potassium Level 4.3, Chloride Level 105, Carbon Dioxide Level 24, Anion Gap 8, Blood Urea Nitrogen 15, Creatinine 0.83, Estimat Glomerular Filtration Rate > 60, BUN/Creatinine Ratio 18, Glucose Level 96, Calcium Level 8.6, Corrected Calcium 9.2, Total Bilirubin 0.5, Aspartate Amino Transf (AST/SGOT) 34, Alanine Aminotransferase (ALT/SGPT) 57, Alkaline Phosphatase 94, Total Protein 7.7, Albumin 3.2 12/06/19 05:08: White Blood Count 6.5, Red Blood Count 4.74, Hemoglobin 14.2, Hematocrit 44, Mean Corpuscular Volume 92, Mean Corpuscular Hemoglobin 30, Mean Corpuscular Hemoglobin Concent 33, Red Cell Distribution Width 12.9, Platelet Count 621, Mean Platelet Volume 9.5, Neutrophils (%) (Auto) 53, Lymphocytes (%) (Auto) 33, Monocytes (%) (Auto) 9, Eosinophils (%) (Auto) 4, Basophils (%) (Auto) 0, Neutrophils # (Auto) 3.4, Lymphocytes # (Auto) 2.2, Monocytes # (Auto) 0.6, Eosinophils # (Auto) 0.3, Basophils # (Auto) 0.0, Sodium Level 141, Potassium Level 4.2, Chloride Level 106, Carbon Dioxide Level 27, Anion Gap 8, Blood Urea Nitrogen 18, Creatinine 0.94, Estimat Glomerular Filtration Rate > 60, BUN/Creatinine Ratio 19, Glucose Level 86, Calcium Level 9.3, Corrected Calcium 9.7, Total Bilirubin 0.2, Aspartate Amino Transf (AST/SGOT) 25, Alanine Aminotransferase (ALT/SGPT) 47, Alkaline Phosphatase 88, Total Protein 7.9, A lbumin 3.5 12/13/19 05:05: White Blood Count 4.7, Red Blood Count 4.78, Hemoglobin 14.3, Hematocrit 44, [place] n Corpuscular Volume 92, Mean Corpuscular Hemoglobin 30, Mean Corpuscular Hemoglobin Concent 33, Red Cell Distribution Width 13.6, Platelet Count 330, Mean Platelet Volume 10.4, Neutrophils (%) (Auto) 39, Lymphocytes (%) (Auto) 42, Monocytes (%) (Auto) 9, Eosinophils (%) (Auto) 10, Basophils (%) (Auto) 0, Neutrophils # (Auto) 1.8, Lymphocytes # (Auto) 2.0, Monocytes # (Auto) 0.4, E osinophils # (Auto) 0.5, Basophils # (Auto) 0.0, Sodium Level 142, Potassium Level 4.1, Chloride Level 109, Carbon Dioxide Level 21, Anion Gap 12, Blood Urea Nitrogen 15, Creatinine 0.82, Estimat Glomerular Filtration Rate > 60, BUN/Creatinine Ratio 18, Glucose Level 84, Calcium Level 8.7, Corrected Calcium 9.1, Total Bilirubin 0.2, Aspartate Amino Transf (AST/SGOT) 19, Alanine Ami notransferase (ALT/SGPT) 29, Alkaline Phosphatase 90, Total Protein 7.4, Albumin 3.5 Discharge Home Medications: Active Scripts Active Naproxen 250 Mg Tablet 500 Mg PO BID WITH MEALS Aspirin 81 Mg Tab.chew 81 Mg PO DAILY Diltiazem 24Hr ER (Diltiazem HCl) 180 Mg Cap.er.24h 360 Mg PO DAILY@0900 Metoprolol Succinate 50 Mg Tab.er.24h 75 Mg PO DAILY Reported Cyclobenzaprine HCl 10 Mg Tablet 10 Mg PO BID PRN Tylenol Extra Strength (Acetaminophen) 500 Mg Tablet 500 Mg PO Q6H PRN Instructions to patient/family Please see electronic discharge instructions given to patient. Diagnosis/Problems Diagnosis/Problems (1) Left knee pain (2) Atrial fibrillation (3) History of UTI (4) Fall (5) Multiple sclerosis Clinical Quality Measures DVT/VTE Risk/Contraindication: Risk Factor Score Per Nursin RFS Level Per Nursing on Admit: 3=High GEORGI WATT DO Dec 14, 2019 08:45
[2019-12-14] MEDS: NAPROXEN 250 MG (NAPROSYN) TABLET PO SCH (09:43)
[2019-12-14] MEDS: meTOproloL SUCCINATE 50 MG (TOPROL XL) TAB PO SCH (09:43)
[2019-12-14] MEDS: ASPIRIN 81 MG CHEW (CHILDREN'S ASA) PO SCH (09:43)
--- NOTE | 2019-12-14 09:43 | Therapy Team Discharge Summary ---
Therapy Discharge Summary Discharge Recommendations Date of Discharge Physical Therapy This patient was admitted to ARU post acute hospital stay due to a fall at home with a MS flare. His PLOF was living with his sister at a mod indep level and walking short in home distances. Treatment has consisted of functional strength, balance, gait and safety training to allow him to return home. He was min assist with bed mobility at [facility] and dependent for transfer, requiring a sit to stand lift (unable to ambulate) at evaluation. At discharge he is mod indep with bed mobilty, transfer, gait and wc mobility. He has made good progress and plans to return home today. Recommned [facility] PT to follow for continued skilled intervention. DC from ARU this date. Occupational Therapy Decreased Activ Tolerance, Decreased UE Strength, Dependent Transfers, Impaired Funct Balance, Impaired I ADL's, Impaired Self-Care Skills PT Detention Goals Manager Supplier Goals PT Detention Goals Time Frame: Dec 21, 2019 Roll Left to Right (QC): 6 Sit to Lying (QC): 4 Lying-Sitting on Side/Bed(QC): 4 Sit to Stand (QC): 3 Chair/Lrg-hn-Vdlgi Xfer(QC): 3 Car Transfer (QC): 3 Does the Patient Walk: No and Walking Goal NOT indicated Walk 10 feet (QC): 88 Walk 10ft-Uneven Surface(QC): 88 Walk 50ft with 2 Turns (QC): 88 Walk 150 ft (QC): 88 Wheel 50 feet with 2 turns (QC: 6 1 Step (curb) (QC): 88 4 Steps (QC): 88 12 Steps (QC): 88 Picking up an Object (QC): 88 Goals met to a satisfactory level and patient has achieved max potential at this time. OT Detention Goals Detention Goals Time Frame: Dec 14, 2019 Eating (QC): 6 Oral Hygiene (QC): 6 Shower/Bathe Self (QC): 6 Upper Body Dressing (QC): 6 Lower Body Dressing (QC): 6 On/Off Footwear (QC): 6 Toileting Hygiene (QC): 6 Toilet/Commode Transfer (QC): 3 Additional Goals: 1-Demonstrate ADL Tasks, 2-Verbalize Understanding, 3- ImproveStrength/Gilmer 1=Demonstrate adherence to instructed precautions during ADL tasks. 2=Patient will verbalize/demonstrate understanding of assistive devices/modifications for ADL. 3=Patient will improve strength/tolerance for activity to enable patient to perform ADL's. Speech Manager Supplier Goals Detention Goals Patient will improve cognitive-communication necessary for safety and daily living tasks with minimal assist. ELVIN BARNHART PT Dec 14, 2019 09:42
[2019-12-14] MEDS: SENNA W/DOCUSATE (SENOKOT S) TABLET PO SCH (09:46)
[2019-12-14] MEDS: DOCUSATE SODIUM 100 MG (COLACE) CAP PO SCH (09:46)
[2019-12-14] MEDS: polyethylene glycoL POWDER 17 GM (MIRALAX) PACK PO SCH (09:46)
--- NOTE | 2019-12-14 09:52 | Therapy Team Discharge Summary ---
Therapy Discharge Summary Discharge Recommendations Date of Discharge Occupational Therapy Decreased Activ Tolerance, Decreased UE Strength, Dependent Transfers, Impaired Funct Balance, Impaired I ADL's, Impaired Self-Care Skills Speech-Language Pathology Patient was admitted to the ARU s/p MS exacerbation. Patient received skilled ST due to decreased cognitive function as indicated by the SLUMS. Patient was able to achieve his goals with treatment sessions completed. Patient is discharging to his home this date where he will live with his sister and receive assistance with his daily needs. PT Vegetable Harvest Machine Operator Goals Usp Goals PT Vegetable Harvest Machine Operator Goals Time Frame: Dec 21, 2019 Roll Left to Right (QC): 6 Sit to Lying (QC): 4 Lying-Sitting on Side/Bed(QC): 4 Sit to Stand (QC): 3 Chair/Xxz-ra-Xgadl Xfer(QC): 3 Car Transfer (QC): 3 Does the Patient Walk: No and Walking Goal NOT indicated Walk 10 feet (QC): 88 Walk 10ft-Uneven Surface(QC): 88 Walk 50ft with 2 Turns (QC): 88 Walk 150 ft (QC): 88 Wheel 50 feet with 2 turns (QC: 6 1 Step (curb) (QC): 88 4 Steps (QC): 88 12 Steps (QC): 88 Picking up an Object (QC): 88 OT Usp Goals Usp Goals Time Frame: Dec 14, 2019 Eating (QC): 6 Oral Hygiene (QC): 6 Shower/Bathe Self (QC): 6 Upper Body Dressing (QC): 6 Lower Body Dressing (QC): 6 On/Off Footwear (QC): 6 Toileting Hygiene (QC): 6 Toilet/Commode Transfer (QC): 3 Additional Goals: 1-Demonstrate ADL Tasks, 2-Verbalize Understanding, 3- ImproveStrength/Gilmer 1=Demonstrate adherence to instructed precautions during ADL tasks. 2=Patient will verbalize/demonstrate understanding of assistive devices/modifications for ADL. 3=Patient will improve strength/tolerance for activity to enable patient to perform ADL's. Speech Vegetable Harvest Machine Operator Goals Usp Goals Patient will improve cognitive-communication necessary for safety and daily living tasks with minimal assist. ROYAL CARDOZO Dec 14, 2019 09:52
--- NOTE | 2019-12-14 13:23 | NUR ---
APPT MADE FOR , at 9;[address] AWAD. Addendum: 12/14/19 at 1332 by DIALLO ALAS RN THIS APPT DATE & TIME WAS WRITTEN DOWN ON PT'S D/C PAPERS, & VERBALLY INSTRUCTED PT OF APPT
--- NOTE | 2019-12-14 14:03 | NUR ---
CM/SS DISCHARGE Patient discharged back to his home in [place] that he shares with his sister, Allyssa Nguyen. He will continue under the former situation of living upstairs until his downstairs apartment is finished, they guesstimate 2 more days. Post hospital HHC and DME coordinated within [facility] system due to patient uninsured status and derek care application, pending: HHC: Finalized with [facility] RN PT OT. DME: Ordered through [facility] Home Medical: Wheelchair, FWW, shower chair, hip kit. Patient indicated understanding that he will be billed for those items until such time as his derek application is processed and/or [employer] or Society provides funding. [employer] made multiple attempts over 2 days to contact [employer] and [employer] to see if funds were available for home equipment; however, calls offered only voice messages and no responses, two emails were unresponsive as well with the exception of one response whose engineering writer then went on vacation and unavailable. This engineering writer will continue to pursue funding for the current DME order if there are later responses to inquiries re same. Patient and his sister were 1/2 way through a request for a hospital bed for patient with PCP Dr. Rory Henderson, they were instructed to followthrough on that same course since one more step remains. Dr. Henderson apparently out until . DEREK CARE: Patient's application stagnant until proof of income was obtained, engineering writer worked with patient to get his bank to fax the required 3 months statements as proof of income. Information received and provided for [facility] Claims Attorney KW, copy of provided documents given to patient. [facility]ICA[facility]: Patient indicates he got a letter in the mail from [place] Medicaid that this same information, proof of income, is needed by December 19 or his application will be terminated. [employer] advised patient/sister to get this forwarded felix per that letter instructions. HCBS: [employer] has provided the completed Physical Disability Waiver Physician Statement and Consumer Evaluation of Needs to Alice Dye at [facility]. They will then determine whether patient is eligible for HCBS funding and in-home assistance which would keep him off the one year wait list. Continuum of care needs were met or are already in motion prior to hospital stay. Sister came for patient before DME was delivered even though this was discussed by phone that a firm delivery time was not known. She reports she can not stay and that patient may have to stay another day or get another ride home. Reiterated he is discharged today, she then indicates she may have to return early evening for patient. No further interventions at this time. Addendum: 12/14/19 at 1519 by SHYLA CLARK SS Faxed proof of income as specifically requested by [facility] letter this date to assist patient with medical assistance process. Fax confirmation provided to patient with contents.
[2019-12-14 16:10] VITALS: BP 113/59
--- NOTE | 2019-12-14 16:35 | NUR ---
CM/SS DISCHARGE Response from [employer] that they do not provide any reimbursement funding regarding the DME provided today. They have grants, any assistive devices through them requires an application and she indicated it takes weeks to get approval and delivery. The Navigator apparently is through [employer], will continue to seek reimbursement for DME provided today if possible. If not, [facility] retroactive may be an option.
--- NOTE | 2019-12-15 11:59 | Therapy Team Discharge Summary ---
Therapy Discharge Summary Discharge Recommendations Date of Discharge Dec 14, 2019 at 16:10 Occupational Therapy Pt admits to ARU with MS flare dx. Pt completes many ADLs upon admission with TD (bathing, LB dressing, footwear, and toilet hygiene) due to Ax2 and use of sit to stand machine due to LB pain/ debility. Pt and OT work towards higher fx IND through AE training, ADL activity, fx activity tolerance activity, safety/ energy conservation education. Pt limited by pain. Pt d/c's with showering at SUP-SBA level, LB dressing/ toileting tasks with SBA, and footwear at mod I (6) with use of AE. Pt d/c's to sister's home with recommendations of hip kit. D/c OT at this time. Decreased Activ Tolerance, Decreased UE Strength, Dependent Transfers, Impaired Funct Balance, Impaired I ADL's, Impaired Self-Care Skills PT Correction Goals School Lunch Monitor Goals PT Correction Goals Time Frame: Dec 21, 2019 Roll Left to Right (QC): 6 Sit to Lying (QC): 4 Lying-Sitting on Side/Bed(QC): 4 Sit to Stand (QC): 3 Chair/Gqz-cz-Eizpk Xfer(QC): 3 Car Transfer (QC): 3 Does the Patient Walk: No and Walking Goal NOT indicated Walk 10 feet (QC): 88 Walk 10ft-Uneven Surface(QC): 88 Walk 50ft with 2 Turns (QC): 88 Walk 150 ft (QC): 88 Wheel 50 feet with 2 turns (QC: 6 1 Step (curb) (QC): 88 4 Steps (QC): 88 12 Steps (QC): 88 Picking up an Object (QC): 88 OT School Lunch Monitor Goals Correction Goals Time Frame: Dec 14, 2019 Eating (QC): 6 Oral Hygiene (QC): 6 Shower/Bathe Self (QC): 6 Upper Body Dressing (QC): 6 Lower Body Dressing (QC): 6 On/Off Footwear (QC): 6 Toileting Hygiene (QC): 6 Toilet/Commode Transfer (QC): 3 Additional Goals: 1-Demonstrate ADL Tasks, 2-Verbalize Understanding, 3- ImproveStrength/Gilmer 1=Demonstrate adherence to instructed precautions during ADL tasks. 2=Patient will verbalize/demonstrate understanding of assistive devices/modifications for ADL. 3=Patient will improve strength/tolerance for activity to enable patient to perform ADL's. Speech School Lunch Monitor Goals Correction Goals Patient will improve cognitive-communication necessary for safety and daily living tasks with minimal assist. MAYKEL LUCAS OTR Dec 15, 2019 11:59
== END 2019-12-14 16:10 | disposition home health service (06) | DRG 60 ==
PROVIDERS: ADMIT Internal Medicine; ATTEND Internal Medicine
DX: G35 Multiple sclerosis (principal); Z91.81 History of falling; M17.12 Unilateral primary osteoarthritis, left knee; I48.91 Unspecified atrial fibrillation; I10 Essential (primary) hypertension; C61 Malignant neoplasm of prostate; K59.09 Other constipation; D47.3 Essential (hemorrhagic) thrombocythemia
CPT/HCPCS: 36415; 73562; 80053; 85007; 85025; 85027